=== PATIENT | male | born 1945 | race Caucasian/White ===

== ENCOUNTER 2022-09-02 14:55 | Oncology outpatient (recurring) (ONCR) | payer MEDICARE, SELFPAY ==
[2022-09-02 16:35] LABS: Basophils % 0.5 %; Eosinophils # 0.1 10^3/uL (0.0-0.8); Eosinophils % 2.1 %; Hematocrit 41.3 % (42.0-52.0); Lymphocytes # 1.5 10^3/uL (0.8-4.8); Mean Corpuscular HGB Conc 33.9 g/dL (30.0-36.0); Mean Corpuscular Hemoglobin 31.1 pg (28.0-34.0); Mean Corpuscular Volume 91.8 fl (80-94); Mean Platelet Volume 11.9 fL (7.4-10.4); Monocytes # 0.8 10^3/uL (0.2-0.9); Monocytes % 13.9 %; Neutrophils # 3.52 10^3/uL (1.8-7.7); Neutrophils % 58.2 %; Nucleated Red Blood Cells % 0 %; Platelet Count 36 10^3/cmm (130-400); Red Cell Distribution Width 12.3 % (12.1-15.1); White Blood Count 6.1 10^3/uL (4.0-10.0)
[2022-09-02 16:41] LABS: Erythrocyte Sedimentation Rate 7 mm/hr (0-10)
[2022-09-02 17:33] LABS: Alanine Aminotransferase 24 U/L (0-41); Albumin Level 4.3 g/dL (3.5-5.2); Alkaline Phosphatase 73 U/L (40-130); Anion Gap 17.3 (5-19); Aspartate Amino Transferase 21 U/L (0-40); Blood Urea Nitrogen 19 mg/dL (8-23); Calcium 9.4 mg/dL (8.5-10.5); Carbon Dioxide 24 mmol/L (22-29); Chloride 104 mmol/L (98-107); Globulin 3.1 g/dL (1.3-4.6); Glucose 110 mg/dL (65-115); Lactate Dehydrogenase 246 U/L (135-225); Osmolality Calculated 295 mOsm/kg (285-295); Potassium 4.3 mmol/L (3.5-5.1); Sodium 141 mmol/L (136-145); Thyroid Stimulating Hormone 2.92 uIU/mL (0.27-4.20); Total Bilirubin 0.4 mg/dL (0.15-1.2); Total Protein 7.4 g/dL (6.6-8.7); Vitamin B12 345 pg/mL (232-1245)
[2022-09-02 17:34] LABS: Folate Level 13.8 ng/mL (4.5-32.2)
[2022-09-02 18:36] LABS: LAB Peripheral Smear Sent for Review
[2022-09-03 15:48] LABS: Anti-Nuclear Antibody Screen NEGATIVE (NEGATIVE)
== END 2022-09-08 23:59 | disposition home or self-care (01) ==
PROVIDERS: PCP Family Medicine; Visit Provider Internal Medicine Medical Oncology
DX: D69.6 Thrombocytopenia, unspecified (principal); R53.83 Other fatigue; Z79.02 Long term (current) use of antithrombotics/antiplatelets; Z86.73 Personal history of transient ischemic attack (TIA), and cerebral infarction without residual deficits; Z87.891 Personal history of nicotine dependence
CPT/HCPCS: 80053; 82607; 82746; 83615; 84443; 85025; 85651; 86038; 86140; 99205

== ENCOUNTER 2022-09-29 10:11 | Day surgery (SDC) | payer MEDICARE, SELFPAY ==
[2022-09-25 10:48] VITALS: BMI 29.5
[2022-09-29 10:36] VITALS: BP 174/9; PULSE 63; RESP 18; TEMP 36.2; O2SAT 93
[2022-09-29] MEDS: sodium chloride 0.9% 1,000 ML 30 ML IV (10:43)
[2022-09-29 10:53] LABS: Glucose Point of Care 124 mg/dL (70-110)
[2022-09-29 10:59] LABS: Basophils % 0.4 %; Eosinophils # 0.1 10^3/uL (0.0-0.8); Eosinophils % 1.7 %; Hematocrit 43.7 % (42.0-52.0); Lymphocytes # 1.6 10^3/uL (0.8-4.8); Lymphocytes % 22.3 %; Mean Corpuscular HGB Conc 34.3 g/dL (30.0-36.0); Mean Corpuscular Hemoglobin 31.1 pg (28.0-34.0); Mean Corpuscular Volume 90.5 fl (80-94); Mean Platelet Volume 11.1 fL (7.4-10.4); Monocytes # 0.7 10^3/uL (0.2-0.9); Monocytes % 10.4 %; Neutrophils # 4.51 10^3/uL (1.8-7.7); Neutrophils % 65.1 %; Nucleated Red Blood Cells % 0 %; Platelet Count 50 10^3/cmm (130-400); Red Blood Count 4.83 10^6/uL (4.1-5.3); Red Cell Distribution Width 11.9 % (12.1-15.1); White Blood Count 6.9 10^3/uL (4.0-10.0)
--- NOTE | 2022-09-29 12:15 | W.PM.OPSUD ---
Surgery/Procedure H&P Update DATE OF PROCEDURE: September 29, 2022 DATE H&P PERFORMED: 09/02/22 CHANGES TO PREVIOUS DOCUMENTATION: Patient seen and examined, no obvious new changes or symptoms since his last visit in the clinic PRIMARY INDICATION FOR PROCEDURE: Thrombocytopenia PLANNED PROCEDURE: Operation Date: 09/29/22 12:00 Proposed Procedures p Bone Marrow Biospy With Aspiration(Not Applicable) - Tony Roy MD
--- NOTE | 2022-09-29 12:28 | ANES.PREANE2 ---
Pre-Anesthetic Assessment Height/Weight: Height 1.75 m Weight 90.718 kg Temp Pulse Resp BP Pulse Ox O2 Del Method 97.2 F L 63 18 174/9 93 09/29/22 10:36 09/29/22 10:36 09/29/22 10:36 09/29/22 10:36 09/29/22 10:36 09/29/22 10:36 Preop Diagnosis: Throbocytopenia Operation Date: 09/29/22 12:00 Proposed Procedures p Bone Marrow Biospy With Aspiration(Not Applicable) - Tony Roy MD Last intake: Intake Last Liquid Date 09/28/22 Last Liquid Time 23:00 Last Solid Date 09/28/22 Last Solid Time 23:00 Social No alcohol and No tobacco Exam alert, oriented x 3, clear to auscultation bilaterally and regular rate & rhythm Airway Submandibular: within normal limits Cervical ROM: within normal limits Mallampati: Class II Dentition: false History/ROS No significant history except as noted and No significant complaints Pulmonary None reported CV/HEM Peripheral Vascular Disease SP CEA None reported Hepatic None reported GI None reported Metabolic Diabetes Mellitus Musc/skel Weakness R sided weakness. Uses cane Neuropsych Cerebrovascular Accident and Neuropathy Anesthetic Plan ASA status: 4 Anesthesia: Anesthesia Evaluation and MAC Risk of > 500 ml blood loss (7ml/kg in children): No Medications/Allergies Home Medications Medication Instructions Recorded Confirmed Last Taken Type baclofen 10 mg tablet 10 mg PO DAILY PRN muscle spasms 09/05/22 09/29/22 09/25/22 History clopidogrel 75 mg tablet 75 mg PO DAILY 09/05/22 09/29/22 09/24/22 History finasteride 5 mg tablet 5 mg PO DAILY 09/05/22 09/29/22 09/25/22 History gabapentin 300 mg capsule 300 mg PO TID 09/05/22 09/29/22 09/25/22 History metformin 500 mg tablet 500 mg PO BID 09/05/22 09/29/22 09/25/22 History pravastatin 40 mg tablet 40 mg PO DAILY 09/05/22 09/29/22 09/25/22 History Allergies Allergy/AdvReac Type Severity Reaction Status Date / Time Penicillins Allergy ADR-Gastrointestinal Verified 09/29/22 10:35 Upset [facility] Anesthesia Medical History (Updated 09/02/22 @ 18:05 by Placido Moreno MD) Benign prostatic hyperplasia Chronic kidney disease History of carotid artery disease History of multiple strokes Hyperlipidemia Peripheral neuropathy Type 2 diabetes mellitus Surgical History (Updated 09/02/22 @ 18:30 by Placido Moreno MD) H/O bilateral cataract extraction H/O carotid endarterectomy History of appendectomy Family History (Updated 09/02/22 @ 15:22 by Mirela Ward LPN) Father Stroke Mother Stroke Brother Cancer Lungs Lung disease Other Diabetes Denies family history of CAD (coronary artery disease) Clotting disorder Dementia Hyperlipidemia Psychiatric illness Chronic kidney disease (CKD) Suicide Anesthesia complication Bleeding disorder Hypertension Social History (Updated 09/02/22 @ 15:16 by Mirela Ward LPN) Smoking and tobacco status: former smoker (smoked x 20 years) Alcohol intake: never Data Anesthesia 09/29/22 10:49 Short CBC 09/29/22 Range/Units 10:49 WBC 6.9 (4.0-10.0) 10^3/uL Hgb 15.0 (11.7-16.6) g/dL Hct 43.7 (42.0-52.0) % MCV 90.5 (80-94) fl Plt Count 50 L (130-400) 10^3/cmm Neut % (Auto) 65.1 % Neut # (Auto) 4.51 (1.8-7.7) 10^3/uL Cardiac Studies: No Data to Display
--- NOTE | 2022-09-29 12:55 | PM.BMB ---
Bone Marrow Biopsy Bone Marrow Biopsy: I was consulted by [] office regarding bone marrow biopsy on [Eric romano]. Briefly, the patient is a [77] year old [Male with [History of thrombocytopenia]. In the Outpatient Services Department, with nursing staff and laboratory technologists in attendance, the procedure was discussed with the patient. Appropriate consent form had been signed. Appropriate alternatives, benefits and risks of procedure were discussed with the patient and he was pre-operatively assessed with a history and physical by myself and cleared for the biopsy procedure. The patient did request IV sedation and that was provided by the Anesthesia Department. Under aseptic condition right posterior iliac area was cleaned and prepped, local anesthesia was given, about 15 cc of bone marrow aspirate and core biopsy was obtained, sample was sent for routine histopathology, cytogenetics, FISH for MDS. Postprocedure nursing instructions were given Thank you for allowing me to participate in this patient's care and diagnosis. Coding Level of Care Code Acute Tour Operator for Rubio Sims Medical Decision Making Straight Forward
[2022-09-29 12:59] VITALS: BP 148/76; PULSE 60; RESP 14; TEMP 36.4; O2SAT 98
[2022-09-29 13:11] VITALS: BP 179/91; PULSE 59; RESP 14; O2SAT 98
--- NOTE | 2022-09-29 15:40 | ANE.PACU2 ---
Inpatient post-anesthesia follow up: Airway intact: Yes Vital signs: Temperature 97.5 F Pulse Rate 59 Respiratory Rate 14 Blood Pressure 179/91 Pulse Oximetry 98 Oxygen Delivery Me thod Room Air Oxygen Flow Rate Fraction of Inspir ed Oxygen Hydration adequate: Yes Nausea and vomiting: No Pain level: 2 Mental status: Baseline
[2022-10-06 10:00] LABS: Leukemia Profile (BBPL) See Report; Lymphoma Profile (BBPL) See Report
[2022-10-13 09:43] LABS: Chromosome Analysis BBPL See Report; MDS Panel (BBPL) See Report
== END 2022-09-29 13:34 | disposition home or self-care (01) ==
PROVIDERS: PCP Family Medicine; Visit Provider Internal Medicine Hematology & Oncology
PROC: 07DT3ZX Extraction of Bone Marrow, Percutaneous Approach, Diagnostic (ICD-10-PCS; CPT 38222; principal; 2022-09-29 12:00)
DX: D69.6 Thrombocytopenia, unspecified (principal); Z86.73 Personal history of transient ischemic attack (TIA), and cerebral infarction without residual deficits; N40.0 Benign prostatic hyperplasia without lower urinary tract symptoms; E11.42 Type 2 diabetes mellitus with diabetic polyneuropathy; I25.10 Atherosclerotic heart disease of native coronary artery without angina pectoris; E78.5 Hyperlipidemia, unspecified; Z87.891 Personal history of nicotine dependence; E11.22 Type 2 diabetes mellitus with diabetic chronic kidney disease; N18.9 Chronic kidney disease, unspecified
CPT/HCPCS: 36415; 36416; 38222; 82962; 85025; 88184; 88185; 88237; 88264; 88291; 88305; 88311; 88367; 88374; J2704; J7030

== ENCOUNTER 2022-11-07 08:03 | Oncology outpatient (recurring) (ONCR) | payer MEDICARE, SELFPAY ==
[2022-11-07 08:21] LABS: Basophils % 0.4 %; Eosinophils # 0.2 10^3/uL (0.0-0.8); Hematocrit 43.6 % (42.0-52.0); Hemoglobin 14.6 g/dL (11.7-16.6); Lymphocytes % 24.7 %; Mean Corpuscular HGB Conc 33.5 g/dL (30.0-36.0); Mean Corpuscular Hemoglobin 30.5 pg (28.0-34.0); Mean Corpuscular Volume 91.2 fl (80-94); Monocytes # 0.9 10^3/uL (0.2-0.9); Monocytes % 10.5 %; Neutrophils # 5.05 10^3/uL (1.8-7.7); Neutrophils % 62.2 %; Nucleated Red Blood Cells % 0 %; Platelet Count 80 10^3/cmm (130-400); Red Blood Count 4.78 10^6/uL (4.1-5.3); Red Cell Distribution Width 11.9 % (12.1-15.1); White Blood Count 8.1 10^3/uL (4.0-10.0)
[2022-11-07 08:40] LABS: Alanine Aminotransferase 21 U/L (0-41); Albumin Level 4.5 g/dL (3.5-5.2); Alkaline Phosphatase 71 U/L (40-130); Anion Gap 13.5 (5-19); Aspartate Amino Transferase 20 U/L (0-40); Blood Urea Nitrogen 26 mg/dL (8-23); Calcium 9.1 mg/dL (8.5-10.5); Carbon Dioxide 27 mmol/L (22-29); Chloride 103 mmol/L (98-107); Globulin 2.8 g/dL (1.3-4.6); Glucose 129 mg/dL (65-115); Lactate Dehydrogenase 219 U/L (135-225); Osmolality Calculated 294 mOsm/kg (285-295); Potassium 4.5 mmol/L (3.5-5.1); Sodium 139 mmol/L (136-145); Total Bilirubin 0.4 mg/dL (0.15-1.2); Total Protein 7.3 g/dL (6.6-8.7)
[2022-11-07 08:41] LABS: Erythrocyte Sedimentation Rate 12 mm/hr (0-10)
[2022-11-07 12:00] LABS: Vitamin B12 292 pg/mL (232-1245)
== END 2022-11-08 23:59 | disposition home or self-care (01) ==
PROVIDERS: PCP Family Medicine; Visit Provider Internal Medicine Medical Oncology
DX: D69.6 Thrombocytopenia, unspecified (principal); M54.50 Low back pain, unspecified; R51.9 Headache, unspecified; R41.3 Other amnesia; R53.83 Other fatigue; Z79.02 Long term (current) use of antithrombotics/antiplatelets; Z86.73 Personal history of transient ischemic attack (TIA), and cerebral infarction without residual deficits; Z87.891 Personal history of nicotine dependence
CPT/HCPCS: 36415; 80053; 82607; 83615; 85025; 85651; 99214

== ENCOUNTER → 2023-02-03 09:08 | Outpatient (BNVA) | payer OTHER, SELFPAY | PROVIDERS: PCP Family Medicine; Referring Provider Family Medicine; Visit Provider Orthopaedic Surgery | DX: M48.062 Spinal stenosis, lumbar region with neurogenic claudication (principal); M51.36 Other intervertebral disc degeneration, lumbar region | CPT/HCPCS: 72110 ==

== ENCOUNTER 2023-07-06 06:15 | Outpatient (CLI) | payer OTHER, SELFPAY ==
[2023-07-06] MEDS: gadobenate dimeglumine 20 mL vial IV (07:27)
--- NOTE | 2023-07-06 08:00 | MR_ITS ---
WS: [id number] MRI LUMBAR SPINE WITHOUT AND WITH CONTRAST TECHNIQUE: Sagittal T1, T2 and STIR imaging. Axial T1 and T2 imaging. Post gadolinium imaging was obt ained. CLINICAL INFORMATION: M48.062 - Spinal stenosis, lumbar region with neurogenic ... COMPARISON: MRI 01/08/2023 FINDINGS: Mild lumbar curve. No acute compression. Disc bulging worse at L2-L3 and L3-L4. L5 is partially sacra lized. No abnormal gadolinium enhancement. L1-L2: Mild disc bulging with narrowing of the subarticular recess bilaterally. Tiny LEFT paracentral protrusion. Mild facet arthropathy. Mild RIGHT foraminal narrowing. L2-L3: RIGHT paracentral protrusion with slight inferior migration of disc material unchanged from pr evious. Impingement traversing RIGHT L3 nerve root. Narrowing of the RIGHT subarticular recess. Mild facet arthropathy. L3-L4: Mild annular bulging. Impingement subarticular recess bilaterally. Moderate central canal sten osis. RIGHT foraminal protrusion impinges the exiting L3 nerve root. RIGHT eccentric annular tear. Co rrelation RIGHT L3 nerve root symptoms. LEFT foramen is patent. Mild facet arthropathy. L4-L5: Mild disc bulging with narrowing of the subarticular recess bilaterally. Mild central canal st enosis. Moderate facet arthropathy. Mild RIGHT foraminal narrowing. LEFT foramen is patent. L5-S1: L5 is partially sacralized. Mild facet arthropathy. Spinal canal and foramen are patent. Visualized pelvic bony structures: Normal. Paravertebral soft tissues: Normal. LEFT extrarenal pelvis. IMPRESSION: 1. Mild lumbar curve. L5 is partially sacralized. Counting performed from the craniocervical junctio n. 2. RIGHT subarticular protrusion L2-3 with slight inferior herniation of disc material. This is unch anged from previous. Impingement traversing RIGHT L3 nerve root with mild central canal stenosis. 3. Moderate narrowing of the thecal sac L3-4 due to disc bulging combination with facet arthropathy and prominent epidural fat. Impingement traversing L4 nerve roots bilaterally. This appears slightly progressed compared to previous. 4. RIGHT foraminal protrusion L3-4 with a small annular tear. Impingement exiting RIGHT L3 nerve gaston t laterally with moderate RIGHT foraminal narrowing. Recommend correlation RIGHT L3 nerve root sympto ms. This appears slightly progressed compared to previous. 5. Mild central canal stenosis L4-5 with impingement traversing L5 nerve roots bilaterally. Mild to moderate RIGHT foraminal narrowing contacts the exiting RIGHT L4 nerve root laterally. 6. Tiny central protrusion at L1-2 with mild central canal stenosis and narrowing of the subarticula r recess bilaterally.
== END 2023-07-06 06:16 | disposition home or self-care (01) ==
LOC: RAD 06:16
PROVIDERS: PCP Family Medicine Adult Medicine; Visit Provider Anesthesiology Pain Medicine
DX: M48.062 Spinal stenosis, lumbar region with neurogenic claudication (principal); M51.26 Other intervertebral disc displacement, lumbar region; M47.816 Spondylosis without myelopathy or radiculopathy, lumbar region
CPT/HCPCS: 72158; A9577

== ENCOUNTER 2023-07-28 15:50 | Emergency (ER) | payer OTHER, SELFPAY ==
[2023-07-28 15:53] VITALS: BP 167/46; PULSE 90; RESP 18; TEMP 37.8; O2SAT 95
--- NOTE | 2023-07-28 15:55 | XRR_ITS ---
PROCEDURE INFORMATION: Exam: XR Chest Exam date and time: 07/28/2023 4:05 PM Age: 78 years old Clinical indication: Cough and dyspnea and shortness of breath; Additional info: Weakness; Chest pressure/congestion; SOB TECHNIQUE: Imaging protocol: Radiologic exam of the chest. Views: 1 view. COMPARISON: No relevant prior studies available. FINDINGS: Tubes, catheters and devices: Lower neck surgical clips. Lungs: Left lung base platelike atelectasis versus scarring. No consolidation. Pleural spaces: Unremarkable. No pleural effusion. No pneumothorax. Heart/Mediastinum: Unremarkable. No cardiomegaly. Vasculature: Aortic arch atherosclerotic calcification. Bones/joints: Mild degenerative changes along the spine and acromioclavicular joints. Partially visualized left humeral head suture anchor. XR/XR chest 1V portable [id number] IMPRESSION: No acute findings.
--- NOTE | 2023-07-28 15:56 | ECG_ITS ---
[facility] Test Date: 2023-07-28 Pat Name: Eric Gustafson Department: Room: Gender: Male Assessment Rn: : 1945 Requested By: Kaleigh Borja Order Number: [id number] [address] MD: Price Ochoa M.D. Measurements Intervals [place] Rate: 88 P: 58 IN: 182 QRS: 23 QRSD: 97 T: 62 QT: 339 QTc: 412 Interpretive Statements SINUS RHYTHM WITH FREQUENT VENTRICULAR PREMATURE COMPLEXES INCOMPLETE RIGHT BUNDLE BRANCH BLOCK [90+ ms QRS DURATION, TERMINAL R IN V1/V2, 40+ ms S IN I/aVL/V4/V5/V6] MINIMAL ST DEPRESSION [0.025+ mV ST DEPRESSION] ABNORMAL RHYTHM ECG No previous ECG available for comparison Electronically Signed On 07-28-2023 16:34:49 CDT by Price Ochoa M.D. [email or web address] ([email or web address]) mont[facility] va medical centerTVTYknox community hospital.GripeO/store/OM/[id number]
--- NOTE | 2023-07-28 15:59 | ED_ITS ---
HPI - General Adult General: Chief complaint: COVID symptoms Stated complaint: Weakness Time Seen by Provider: 07/28/23 15:51 Source: patient and EMS Mode of arrival: EMS Limitations: no limitations History of Present Illness: 78-year-old male states that over the last 2 days he has been having cough along with body aches low-grade fevers along with fatigue. States he has been exposed to flu and COVID. Had some mild dyspnea Associated symptoms: Reports headache(s); Deny chest pain, dyspnea, nausea, rash or vomiting Review of Systems Const: Reports: fever(s), chills, body aches and fatigue; Denies: change in appetite ENMT: Denies: throat pain or dental pain Card: Denies: chest pain Resp: Reports: non-productive cough; Denies: dyspnea GI: Denies: abdominal pain, nausea, vomiting or diarrhea : Denies: dysuria Musc: Denies: neck pain or back pain Skin/Breast: Denies: rash Neuro: Reports: headache(s) PFSH ED PFSH: Medical History Benign prostatic hyperplasia Chronic kidney disease History of carotid artery disease History of multiple strokes Hyperlipidemia Peripheral neuropathy Type 2 diabetes mellitus Surgical History H/O bilateral cataract extraction H/O carotid endarterectomy History of appendectomy Family History Father Stroke Mother Stroke Brother Cancer Lungs Lung disease Other Diabetes Denies family history of CAD (coronary artery disease) Clotting disorder Dementia Hyperlipidemia Psychiatric illness Chronic kidney disease (CKD) Suicide Anesthesia complication Bleeding disorder Hypertension Social History Smoking and tobacco status: former smoker (smoked x 20 years) Alcohol intake: never Course Vital Signs: Vital signs: Vital Signs Temperature 100.1 F H 07/28/23 15:53 Pulse Rate 90 07/28/23 15:53 Respiratory Rate 18 07/28/23 15:53 Blood Pressure 167/46 07/28/23 15:53 Pulse Oximetry 96 07/28/23 16:28 Oxygen Delivery Me thod Room Air 07/28/23 16:28 MDM - General Adult Medical Decision Making Patient presents here with viral-like symptoms he is COVID-positive x-ray shows no pneumonia he feels improved here his oxygen levels been normal he is stable for discharge we will place him on Paxil but he is to follow-up with PCP and return if worsening. Medical Records I reviewed the patient's medical records. Lab Data I reviewed the patient's lab results. 07/28/23 16:07 07/28/23 16:07 Radiology Impressions Chest X-Ray 07/28/23 15:55 IMPRESSION: No acute findings. Laboratory Results WBC 7.28 10^3/uL (3.29-11.43) 07/28/23 16:07 RBC 4.38 10^6/uL (3.85-5.65) 07/28/23 16:07 Hgb 13.70 g/dL (11.27-16.99) 07/28/23 16:07 Hct 41.3 % (37-53) 07/28/23 16:07 MCV 94.3 fl (82-101) 07/28/23 16:07 MCH 31.3 pg (27-33) 07/28/23 16:07 MCHC 33.2 g/dL (30-55) 07/28/23 16:07 RDW 12.1 % (12.1-15.1) 07/28/23 16:07 Plt Count 142 10^3/cmm (157-399) L 07/28/23 16:07 MPV 9.5 fL (7.4-10.4) 07/28/23 16:07 Neut % (Auto) 69.0 % 07/28/23 16:07 Lymph % (Auto) 13.6 % 07/28/23 16:07 [place] % (Auto) 16.6 % 07/28/23 16:07 Eos % (Auto) 0.1 % 07/28/23 16:07 Baso % (Auto) 0.4 % 07/28/23 16:07 Neut # (Auto) 5.02 10^3/uL (1.8-7.7) 07/28/23 16:07 Lymph # (Auto) 1.0 10^3/uL (0.8-4.8) 07/28/23 16:07 [place] # (Auto) 1.2 10^3/uL (0.2-0.9) H 07/28/23 16:07 Eos # (Auto) 0.0 10^3/uL (0.0-0.8) 07/28/23 16:07 Baso # (Auto) 0.0 10^3/uL (0.0-0.1) 07/28/23 16:07 Nucleated RBC % (auto) 0 % 07/28/23 16:07 Nucleated RBCs # 0.0 /100WBC 07/28/23 16:07 Sodium 135 mmol/L (136-145) L 07/28/23 16:07 Potassium 3.9 mmol/L (3.5-5.1) 07/28/23 16:07 Chloride 100 mmol/L (98-107) 07/28/23 16:07 Carbon Dioxide 24 mmol/L (22-29) 07/28/23 16:07 Anion Gap 14.9 (5-19) 07/28/23 16:07 BUN 20 mg/dL (8-23) 07/28/23 16:07 Creatinine 1.3 mg/dL (0.7-1.2) H 07/28/23 16:07 GFR Calculation Not Reportable 07/28/23 16:07 Glucose 141 mg/dL (65-115) H 07/28/23 16:07 Calculated Osmolality 285 mOsm/kg (285-295) 07/28/23 16:07 Calcium 8.6 mg/dL (8.5-10.5) 07/28/23 16:07 Total Bilirubin 0.4 mg/dL (0.15-1.2) 07/28/23 16:07 AST 31 U/L (0-40) 07/28/23 16:07 ALT 35 U/L (0-41) 07/28/23 16:07 Alkaline Phosphatase 61 U/L (40-130) 07/28/23 16:07 Total Protein 6.7 g/dL (6.6-8.7) 07/28/23 16:07 Albumin 4.2 g/dL (3.5-5.2) 07/28/23 16:07 Globulin 2.5 g/dL (1.3-4.6) 07/28/23 16:07 Urine Color Yellow (Yellow) 07/28/23 17:20 Urine Appearance Clear (CLEAR) 07/28/23 17:20 Urine pH 5 (5-7) 07/28/23 17:20 Ur Specific [place] 1.020 (1.005-1.030) 07/28/23 17:20 Urine Protein Neg (Negative) 07/28/23 17:20 Urine Glucose (UA) Norm (Normal) 07/28/23 17:20 Urine Ketones Negative (Negative) 07/28/23 17:20 Urine Blood Neg (Negative) 07/28/23 17:20 Urine Nitrate Negative (Negative) 07/28/23 17:20 Urine Bilirubin Neg (Negative) 07/28/23 17:20 Urine Urobilinogen Norm mg/dL (Negative) 07/28/23 17:20 Ur Leukocyte Esterase Negative (Negative) 07/28/23 17:20 Influenza Type A Ag negative (Negative) 07/28/23 16:27 Influenza Type B Ag negative (Negative) 07/28/23 16:27 SARS-CoV-2 Ag (Rapid) positive (Negative) H 07/28/23 16:27 All radiology interpretation(s) finalized by discharge Discharge Plan Discharge Patient Disposition: Home Clinical Impression: COVID-19 Condition: Stable Prescriptions: New Paxlovid 300 mg (150 mg x 2)-100 mg tablets,dose pack See Rx Instructions .ROUTE .COMPLEX Qty: 30 0RF Rx Instructions: take TWO 150 mg tablets of nirmatrelvir with ONE 100 mg tablet of ritonavir twice daily for 5 days No Action prednisone 20 mg tablet 20 mg PO DAILY Qty: 15 0RF Rx Instructions: 60mg X3 days 40mg X2 days 20mg X 2days tizanidine 4 mg tablet 4 mg PO BID PRN (Reason: muscle spasticity) Qty: 60 0RF Rx Instructions: not to be taken with baclofen tramadol 50 mg tablet 50 mg PO BID PRN (Reason: pain) Qty: 45 0RF gabapentin 300 mg capsule 300 mg PO TID baclofen 10 mg tablet 10 mg PO DAILY PRN (Reason: muscle spasms) finasteride 5 mg tablet 5 mg PO DAILY metformin 500 mg tablet 500 mg PO BID clopidogrel 75 mg tablet 75 mg PO DAILY pravastatin 40 mg tablet 40 mg PO DAILY Discharge Orders: Discharge ED (Routine); Ordered 07/28/23 Ordered By: Kaleigh Borja Referrals: Bill Echavarria MD [Primary Care Provider] - 1-3 days Discharge Diet: Advance as tolerated Discharge Activity: Resume usual activity Patient Instructions: COVID-19 (Coronavirus Disease 2019) (ED) Coding Level of Care Code ED On Air Talent for Rubio Sims
[2023-07-28 16:15] LABS: Basophils % 0.4 %; Eosinophils % 0.1 %; Hematocrit 41.3 % (37-53); Lymphocytes % 13.6 %; Mean Corpuscular HGB Conc 33.2 g/dL (30-55); Mean Corpuscular Hemoglobin 31.3 pg (27-33); Mean Corpuscular Volume 94.3 fl (82-101); Mean Platelet Volume 9.5 fL (7.4-10.4); Monocytes # 1.2 10^3/uL (0.2-0.9); Monocytes % 16.6 %; Neutrophils # 5.02 10^3/uL (1.8-7.7); Nucleated Red Blood Cells % 0 %; Platelet Count 142 10^3/cmm (157-399); Red Blood Count 4.38 10^6/uL (3.85-5.65); Red Cell Distribution Width 12.1 % (12.1-15.1); White Blood Count 7.28 10^3/uL (3.29-11.43)
[2023-07-28] MEDS: sodium chloride 0.9% 1,000 ML 999 ML IV (16:21)
[2023-07-28] MEDS: acetaminophen 325 mg Tablet 650 MG PO (16:24)
[2023-07-28 16:28] VITALS: O2SAT 96
[2023-07-28 16:32] LABS: Alanine Aminotransferase 35 U/L (0-41); Albumin Level 4.2 g/dL (3.5-5.2); Alkaline Phosphatase 61 U/L (40-130); Anion Gap 14.9 (5-19); Aspartate Amino Transferase 31 U/L (0-40); Blood Urea Nitrogen 20 mg/dL (8-23); Calcium 8.6 mg/dL (8.5-10.5); Carbon Dioxide 24 mmol/L (22-29); Chloride 100 mmol/L (98-107); Globulin 2.5 g/dL (1.3-4.6); Glucose 141 mg/dL (65-115); Osmolality Calculated 285 mOsm/kg (285-295); Potassium 3.9 mmol/L (3.5-5.1); Sodium 135 mmol/L (136-145); Total Bilirubin 0.4 mg/dL (0.15-1.2); Total Protein 6.7 g/dL (6.6-8.7)
[2023-07-28 17:24] LABS: Influenza A by IFA negative (Negative); Influenza B by IFA negative (Negative)
[2023-07-28 17:25] LABS: Add Urine Microscopic? NO; Charge for UA Resulting for Rev
[2023-07-28 17:25] LABS: SARS Covid-2 Antigen positive (Negative)
[2023-07-28 17:28] LABS: Bilirubin Urine Neg (Negative); Blood Urine Neg (Negative); Glucose Urine UA Norm (Normal); Ketones Urine Negative (Negative); Leukocyte Esterase Urine Negative (Negative); Nitrate Urine Negative (Negative); Protein Urine Neg (Negative); Urine Appearance Clear (CLEAR); Urine Color Yellow (Yellow); Urobilinogen Urine Norm (Negative); pH Urine 5 (5-7)
[2023-07-28 17:59] VITALS: BP 157/69; PULSE 80; RESP 17; O2SAT 97
== END 2023-07-28 18:01 | disposition home or self-care (01) ==
PROVIDERS: Emergency Provider Emergency Medicine; PCP Family Medicine Adult Medicine
DX: U07.1 COVID-19 (principal); Z79.02 Long term (current) use of antithrombotics/antiplatelets; Z79.84 Long term (current) use of oral hypoglycemic drugs; Z87.891 Personal history of nicotine dependence; E11.22 Type 2 diabetes mellitus with diabetic chronic kidney disease; N18.9 Chronic kidney disease, unspecified; Z86.73 Personal history of transient ischemic attack (TIA), and cerebral infarction without residual deficits
CPT/HCPCS: 36415; 71045; 80053; 81003; 85025; 87426; 87804; 93005; 96360; 96361; 99285; J7030

== ENCOUNTER → 2023-09-03 10:08 | Outpatient (BNVA) | payer MEDICARE, SELFPAY | PROVIDERS: PCP Family Medicine Adult Medicine; Visit Provider Orthopaedic Surgery | DX: M48.062 Spinal stenosis, lumbar region with neurogenic claudication (principal); D69.6 Thrombocytopenia, unspecified | CPT/HCPCS: 36415; 72100; 80053; 81003; 85025; 99214 ==

== ENCOUNTER 2023-10-05 12:20 | Inpatient (IN) | payer MEDICARE, SELFPAY ==
[2023-10-05] VITALS (24 sets, daily range): BP systolic 98–214; BP diastolic 51–95; PULSE 64–97; RESP 6–18; TEMP 36.6–36.9; O2SAT 90–99; BMI 29.5
--- NOTE | 2023-10-05 | XR_ITS ---
WS: [id number] C-ARM RADIOGRAPHS LUMBOSACRAL SPINE; 6 IMAGES HISTORY: OR PIC, fusion from l2 to pelvis COMPARISON: None available. Intraoperative imaging during fusion involving the lumbar and sacrum. Laminectomy defects are noted a t several levels in the lumbar spine. IMPRESSION: Intraoperative imaging during lumbosacral fusion.
[2023-10-05] MEDS: sodium chloride 0.9% 1,000 ML 30 ML IV (06:25)
--- NOTE | 2023-10-05 06:43 | ECG_ITS ---
[facility] Test Date: 2023-10-05 Pat Name: Eric Gustafson Department: Room: Gender: Male Html Web Developer: : 1945 Requested By: Rose Conway Order Number: [id number] Jad MD: Aubrey Jolly M.D. Measurements Intervals [place] Rate: 65 P: -28 MD: 192 QRS: 15 QRSD: 93 T: 48 QT: 394 QTc: 413 Interpretive Statements SINUS RHYTHM Nonspecific ST changes Compared to ECG 07/28/2023 16:17:36 Ventricular premature complex(es) no longer present Electronically Signed On 10-05-2023 9:18:18 GAME DESIGNER/CREATIVE DIRECTOR by Aubrey Jolly M.D. [email or web address] community hospitalAccelerize New Mediacommunity regional medical centerServiceGems/store/OM/[id number]
--- NOTE | 2023-10-05 06:45 | W.PM.OPSUD ---
Surgery/Procedure H&P Update DATE OF PROCEDURE: October 05, 2023 DATE H&P PERFORMED: 09/11/23 H&P UPDATE INFORMATION: I have reviewed H&P completed within last 30 days, I have examined patient prior to procedure and No changes to prior documentation PREOP DIAGNOSIS: Lumbar stenosis with neurogenic claudication,DDD Lumbar spine PLANNED PROCEDURE: Operation Date: 10/05/23 07:00 Proposed Procedures p Lumbar Fusion(Not Applicable) - DO claudine Key Lumbar Spine Decompression Lumbar Decompression(Not Applicable) - DO claudine Key Sacroiliac Joint Fusion SI Joint Fusion(Not Applicable) - Gomez Britt DO
--- NOTE | 2023-10-05 06:58 | ANES.PREANE2 ---
Pre-Anesthetic Assessment Height/Weight: Height 1.75 m Weight 90.718 kg O2 Del Method Room Air 10/05/23 06:09 Preop Diagnosis: Lumbar stenosis with neurogenic claudication,DDD Lumbar spine Operation Date: 10/05/23 07:00 Proposed Procedures p Lumbar Fusion(Not Applicable) - Gomez Britt DO s Lumbar Spine Decompression Lumbar Decompression(Not Applicable) - Gomez Britt DO s Sacroiliac Joint Fusion SI Joint Fusion(Not Applicable) - Gomez Britt DO Familial anesthetic complications: None Was Beta Ace taken within 24 hours: N/A Was Clonidine taken within 24 hours: N/A Last intake: Intake Last Liquid Date 10/04/23 Last Liquid Time 19:00 Last Solid Date 10/04/23 Last Solid Time 19:00 Social No alcohol and No tobacco Exam alert, oriented x 3, clear to auscultation bilaterally and regular rate & rhythm Airway Mallampati: Class I Dentition: full CV/HEM hx thombocytopenia, negative bone marrow biopsy Metabolic Diabetes Mellitus and Hyperlipidemia Neuropsych Bipolar Anesthetic Plan ASA status: 3 Anesthesia: General Risk of > 500 ml blood loss (7ml/kg in children): No Medications/Allergies Home Medications Medication Instructions Recorded Confirmed Last Taken Type clopidogrel 75 mg tablet 75 mg PO DAILY 09/05/22 09/22/23 09/15/23 History finasteride 5 mg tablet 5 mg PO DAILY 09/05/22 09/22/23 09/15/23 History metformin 500 mg tablet 500 mg PO BID 09/05/22 09/22/23 09/28/23 History pravastatin 40 mg tablet 40 mg PO DAILY 09/05/22 09/22/23 10/05/23 History gabapentin 300 mg capsule 400 mg PO TID 09/11/23 09/22/23 10/05/23 History Allergies Allergy/AdvReac Type Severity Reaction Status Date / Time Penicillins Allergy ADR-Gastrointestinal Verified 09/22/23 10:43 Upset tramadol Allergy itching Verified 09/22/23 10:43 [facility] Anesthesia Medical History Benign prostatic hyperplasia Chronic kidney disease History of carotid artery disease History of multiple strokes Hyperlipidemia Peripheral neuropathy Type 2 diabetes mellitus Surgical History H/O bilateral cataract extraction H/O carotid endarterectomy History of appendectomy Family History Father Stroke Mother Stroke Brother Cancer Lungs Lung disease Other Diabetes Denies family history of CAD (coronary artery disease) Clotting disorder Dementia Hyperlipidemia Psychiatric illness Chronic kidney disease (CKD) Suicide Anesthesia complication Bleeding disorder Hypertension Social History Smoking and tobacco/nicotine status: former use of tobacco/nicotine (smoked x 20 years) Alcohol intake: never Data Anesthesia Cardiac Studies: No Data to Display
[2023-10-05] MEDS: hyDRALAzine 20 mg/mL INJ 1 mL 5 MG IVP (07:03)
[2023-10-05] MEDS: vancomycin 1,000 MG in sodium chloride 0.9% 250 ML 250 MG IV ×2 (07:32→18:01)
[2023-10-05 08:12] LABS: Glucose Point of Care 127 mg/dL (70-110)
[2023-10-05] MEDS: thrombin 5,000 unit SDV 5000 UNIT XX (08:18)
[2023-10-05] MEDS: heparin, porcine 1,000 unit/mL INJ 10 mL 10000 UNIT IRRIGATION (08:18)
[2023-10-05] MEDS: lidocaine-epi 1% 20 mL INJ INJECTION (08:19)
[2023-10-05] MEDS: vancomycin 1,000 MG SDV 1000 MG XX (09:24)
--- NOTE | 2023-10-05 11:49 | PM.OP ---
Operative Report Date of procedure: October 05, 2023 Pre-op diagnosis: Lumbar stenosis with neurogenic claudication Post-op diagnosis: same Procedure done: 1.? Posterior fusion L2-pelvis 3.? Instrumentation L2-S1 4.? Lumbopelvic instrumentation 5. open right Sacral iliac fusion 6. open left sacral iliac fusion 7. L2/3 laminectomy with partial facetectomies and diskectomy 8. L3/4 laminectomy with partial facetectomies 9. L4/5 laminectomy with facetectomies 10. use of computer navigation / stereotactic spine 11. use of autograft from same incision 12. allograft 13. Bone marrow aspirate from right iliac crest Surgeon: Gomez Britt DO Process Control Programmer: Jj Newman Process Control Programmer: The surgical scrub technologist, Jj Newman, KIKO was needed for his expertise under the microscope. He was important and necessary throughout the procedure to complete in a safe and timely manner. He assisted with patient positioning prepping and draping tissue retraction suctioning of the operative field protection of the dural sac and tissue closure Estimated blood loss (mL): 600 Procedure: 1.? Posterior fusion L2-pelvis 3.? Instrumentation L2-S1 4.? Lumbopelvic instrumentation 5. open right Sacral iliac fusion 6. open left sacral iliac fusion 7. L2/3 laminectomy with partial facetectomies and diskectomy 8. L3/4 laminectomy with partial facetectomies 9. L4/5 laminectomy with facetectomies 10. use of computer navigation / stereotactic spine 11. use of autograft from same incision 12. allograft 13. Bone marrow aspirate from right iliac crest Patient is brought to the operative suite.? After undergoing anesthesia, the patient had neuro monitoring attached.? Patient was then placed in the prone position on the Bean table.? All areas of impingement were well-padded.? Patient was then prepped and draped in the normal sterile fashion.? Skin incision was then made over the L2 to the sacrum.? Subperiosteal dissection was made out to the transverse processes ofL2 bilaterally? L3 bilaterally L4 bilaterally L5 bilaterally and sacral ala bilaterally.? The [employer] bone marrow aspirate kit was used to aspirate bone marrow aspirate.? This was done by using the sharp probe to open up the bone.? Aspiration was performed and then the blunt probe was then used to dissect down to through the bone tunnel.? An aspirating well drawn back a millimeter approximately 10 cc of bone marrow aspirate was used.? Admixed with the allograft and autograft bone that will be used. Next tension was brought to placing the fiducial for the computer navigation.? 2 pins were placed into the right iliac crest.? The fiducial was attached.? The C-arm was brought in and information from the C arm was then linked to the computer used for placing the screws.? Next attention was brought to placing the pedicle screws.? This was done by using the gearshift probe.? The probe was used to identify the pedicle.? Then the pedicle feeler was used followed by placement of screw.? This was done atL2 bilaterally L3 bilaterally L4 bilaterally, L5 bilaterally and S1 bilaterally. Next attension was brought to placing the iliac screws.? This was done using the sacral ala iliac technique.? The gearshift probe linked to computer navigation was then placed through the sacral ala into the sacroiliac joint into the iliac crest.? Next the pedicle feeler was used followed by the computer navigated tap.? And then the screw was passed a 90 mm screw was placed on the right side and a 60 mm screw was placed on the left side.? Both the screws were 9.5 mm in diameter. Next attension was brought to performing the open and sacral iliac fusion.? This was done by again using the gearshift probe linked to computer navigation.? Followed by pedicle feeler followed by placing a wire and then the drill drilled over the wire and then bone graft was packed into the sacroiliac joint and into the drill hole.? And the sacroiliac screw was then placed.? This technique was done on both the right and left side. Next attention was brought to performing the laminectomy of L2.? This was done using the high-speed bur Kerrisons and curettes.? Once the lamina was removed and then attention was brought to performing a partial facetectomy on the contralateral side.? This was done again using the high-speed bur curettes and Kerrisons.? The ligamentum flavum was taken down bilaterally from L2 to L3.? Attention was then brought to the facet on the ipsilateral side.? The facet was taken down.? The L3 nerve was decompressed as it passed around the L3 pedicle.? The laminectomy was done for purposes of decompressing the nerve.? The L2 nerve was identified as it traversed through the L2/3 foramen.? The L3 nerve was traced around the L3 pedicles bilateral.? The scar tissue was pulled off the dura.? There was found to be in good repair. Next attention was brought to performing the laminectomy of L4.? This was done using the high-speed bur Kerrisons and curettes.? Once the lamina was removed and then attention was brought to performing a partial facetectomy on the contralateral side.? This was done again using the high-speed bur curettes and Kerrisons.? The ligamentum flavum was taken down bilaterally from L4 to L5.? Attention was then brought to the facet on the ipsilateral side.? The facet was taken down.? The L5 nerve was decompressed as it passed around the L5 pedicle.? The laminectomy was done for purposes of decompressing the nerve.? The L4 nerve was identified as it traversed through the L4/5 foramen.? The L5 nerve was traced around the L5 pedicles bilateral.? The scar tissue was pulled off the dura.? There was found to be in good repair. Next attention was brought to performing the laminectomy of L5.? This was done using the high-speed bur Kerrisons and curettes.? Once the lamina was removed and then attention was brought to performing a partial facetectomy on the contralateral side.? This was done again using the high-speed bur curettes and Kerrisons.? The ligamentum flavum was taken down bilaterally from L5 to S1.? Attention was then brought to the facet on the ipsilateral side.? The facet was taken down.? The S1 nerve was decompressed as it passed around the S1 pedicle.? The laminectomy was done for purposes of decompressing the nerve.? The L5 nerve was identified as it traversed through the L5/S1 foramen.? The S1 nerve was traced around the S1 pedicles bilateral.? The scar tissue was pulled off the dura.? There was found to be in good repair. Attention was then brought to attaching the rods to the screws placed in theL 2 bilaterally?L3 bilaterally L4 bilaterally L5 bilaterally and S1 bilaterally.? This was then attached to the sacroiliac screw providing the lumbopelvic fixation.? Caps were torqued into position. Locking the construct in place. Wound was copiously irrigated and then attention was brought to decorticating the facets and transverse processes laterally.? Bone that was taken down from the lamina was used along with osteoamp fibers and sponges were packed into the lateral gutters along the facet joints.? This was done bilaterally. Wound was then closed in a layered fashion starting with the thoracolumbar fascia.? 0-vicryl was used the sub cutaneous tissue was closed with 2-0 vicryl and skin with 4-0 monocryl.? Glue was then used to seal the skin and a steril dressing was applied.? Patient was then placed in the supine position. The endotracheal tube was removed and patient was transferred to the PACU in stable condition.
[2023-10-05] MEDS: HYDROmorphone 1 mg/mL INJ 1 mL (12:32)
--- NOTE | 2023-10-05 12:45 | ANE.PACU2 ---
Inpatient post-anesthesia follow up: Airway intact: Yes Vital signs: Temperature 97.8 F Pulse Rate 79 Respiratory Rate 14 Blood Pressure 125/66 Pulse Oximetry 93 Oxygen Delivery Me thod Nasal Cannula Oxygen Flow Rate 6 Fraction of Inspir ed Oxygen Hydration adequate: Yes Nausea and vomiting: No Pain level: 1 Mental status: Baseline
[2023-10-05] MEDS: metformin 500 mg Tablet PO (17:51)
[2023-10-05] MEDS: lactated ringers 1,000 ML 90 ML IV (17:51)
[2023-10-05] MEDS: docusate sodium 100 mg Capsule PO (17:51)
[2023-10-05] MEDS: HYDROcodone-acetaminophen 5-325 mg Tablet PO ×2 (17:56→22:02)
[2023-10-05] MEDS: gabapentin 400 mg Capsule PO (20:06)
[2023-10-05] MEDS: ketorolac 30 mg/mL INJ IVP (20:06)
[2023-10-05] MEDS: sodium chloride 0.9% 1,000 ML 100 ML IV (20:07)
[2023-10-06] VITALS (7 sets, daily range): BP systolic 117–130; BP diastolic 58–66; PULSE 85–110; RESP 16–18; TEMP 36.4–37.1; O2SAT 93–97
[2023-10-06] MEDS: vancomycin 1,000 MG in sodium chloride 0.9% 250 ML 250 MG IV (06:10)
--- NOTE | 2023-10-06 08:39 | PM.PN ---
Subjective Subjective: POD 1 Resting comfortably. Reports increased back pain increased leg pain. Denies chest pain, shortness of breath, headaches Vitals/I&O/Wt Last Vital Signs Temp 97.6 F 10/06/23 00:36 Pulse 90 10/06/23 00:36 Resp 17 10/06/23 00:36 BP 117/66 10/06/23 00:36 Pulse Ox 93 10/06/23 00:36 O2 Del Method Room Air 10/05/23 18:00 O2 Flow Rate 6 10/05/23 11:39 10/05/23 10/06/23 10/06/23 22:59 06:59 14:59 Intake Total 490 / 2140 480 / 480 Output Total 750 / 1850 Balance -260 / 290 480 / 480 Weight last 48 hrs Weight 208 lb Weight 200 lb Physical Exam Narrative: Patient presents alert and oriented x3 with a good general appearance normal mood and affect. Normal coordination normal stability. Mild tenderness around the incisional site with the incision appear to be clean and dry with Hemovac intact. No signs of erythema or drainage. No signs of infection. Patient denies any fevers or chills. 4/5 motor strength both lower extremities with negative straight leg raise bilaterally. Calves are supple no medial thigh tenderness. Pulses are 2+ at the dorsalis pedis and posterior tibial region. Good capillary refill throughout normal sensation light touch both lower extremities. Urinary Catheter Management: Demarco: Cath Placed During This Visit: yes Reason for Continuing Indwelling Catheter: Perioperative Use in Selected Surgeries Urinary Catheter Date of Insertion: 10/05/23 Urinary Catheter Time of Insertion: 07:45 A&P Assessment and plan (1) Status post lumbar spinal fusion: We will discontinue the Demarco catheter. We will keep the Hemovac drain. Encourage incentive spirometry for pulmonary toilet. He is high risk of bleeding so continue mechanical SCDs for DVT prophylaxis. Physical therapy to work with mobilization. We will have director social service evaluate him for possible placement or home health care as he has a handicapped at home. Attestations Medical Necessity Statement*: Work to gain better pain control hopeful discharge home tomorrow. Coding Level of Care Code Acute Code for Chg Fwd Diagnoses Status post lumbar spinal fusion Z98.1
[2023-10-06] MEDS: finasteride 5 mg Tablet PO (09:38)
[2023-10-06] MEDS: docusate sodium 100 mg Capsule PO ×2 (09:38→18:01)
[2023-10-06] MEDS: metformin 500 mg Tablet PO ×2 (09:38→18:01)
[2023-10-06] MEDS: gabapentin 400 mg Capsule PO ×3 (09:38→20:28)
--- NOTE | 2023-10-06 10:00 | PC.CHAP ---
Pastoral Care Encounter/Spiritual Assessment Type of Contact [] Declined program assistant visit [] Patient/Family/Request visit [] Outpatient visit [] Follow-up visit [] Physician referral [] Code/Alert [x] Routine visit [] Staff referral [] Actively dying [] Patient sleeping [x] Family support [] [] Out of room [] Palliative care [] [] Receiving care in room [] Pre-surgical visit [] Trauma [] Long length of stay [] ICU visit [] Other: Relational/Emotional Strength [x] Patient feels connected with others/family/visitors/staff [] Distress [] Loneliness/isolation [] Abandonment Spirituality of Patient [x] Person of Katharina [] Attends Mormonism of their Katharina [x] Believes in Prayer [] Reads Bible or Anglican materials [] There are Spiritual issues to be addressed Photoengraving Printer Interventions [x] Prayer x[] Active listening [] Non-anxious presence [x] Spiritual/emotional support [] Crisis/trauma care [] Spiritual counseling [] Bereavement support [] Provided bereavement packet [] Provided Bible/devotional materials [] Provided toy/stuffed animal, coloring book to patient or family member [] Provided Communion [] Anointing/[place] [] Salvation [x] Completed spiritual assessment [] Other: Impact on Illness or Injury [] Angry [] Fearful [] Anxious [] Often cries [] Exhaustion [] Unable to work [] Unable to attend mu-ism [] Unable to walk/stand [] Unable to read [] Unable to drive [] Unable to eat/drink [] Unable to sleep [] Unable to be with family [] Patient intubated [] Other: Summary Time spent with patient 5 min
[2023-10-06] MEDS: HYDROcodone-acetaminophen 5-325 mg Tablet PO ×2 (11:24→19:47)
[2023-10-06] MEDS: ketorolac 30 mg/mL INJ IVP (11:24)
[2023-10-06] MEDS: alum-mag-hydroxide-sime 30 mL UDC PO ×2 (15:06→23:24)
[2023-10-06] MEDS: lactated ringers 1,000 ML 90 ML IV (18:01)
[2023-10-07] VITALS (51 sets, daily range): BP systolic 77–175; BP diastolic 54–78; PULSE 60–112; RESP 9–31; TEMP 36.4–37.3; O2SAT 85–99
[2023-10-07] MEDS: HYDROcodone-acetaminophen 5-325 mg Tablet PO ×4 (00:38→21:37)
--- NOTE | 2023-10-07 01:00 | ECG_ITS ---
[facility] Test Date: 2023-10-07 Pat Name: Eric Gustafson Department: Room: 257 Gender: Male Body Trimmer: : 1945 Requested By: Gomez Liz Order Number: [id number] Jad MD: Aubrey Jolly M.D. Measurements Intervals [place] Rate: 117 P: 40 WA: 165 QRS: 53 QRSD: 88 T: 202 QT: 312 QTc: 437 Interpretive Statements SINUS TACHYCARDIA ST DEVIATION AND MODERATE T-WAVE ABNORMALITY, consider myocardial ischemia Compared to ECG 10/05/2023 07:26:51 Heart rate has increased, ST changes has worsened Electronically Signed On 10-08-2023 16:47:25 JACQUARD TWINE POLISHER OPERATOR by Aubrey Jolly M.D. [email or web address]
[2023-10-07 02:35] LABS: Troponin(5th) Baseline 196 ng/L (0-15)
[2023-10-07] MEDS: aspirin 325 mg Tablet PO (02:56)
[2023-10-07] MEDS: enoxaparin 100 mg/mL Syringe 150 MG SUBCUT (02:56)
[2023-10-07] MEDS: clopidogrel 300 mg Tablet PO (02:56)
[2023-10-07 05:20] LABS: Troponin 5 2HR Delta 8.2 ABS# (0-10)
[2023-10-07 05:24] LABS: Troponin 5 2HR 204.2 ng/L (0-15)
[2023-10-07] MEDS: lactated ringers 1,000 ML 90 ML IV (05:33)
--- NOTE | 2023-10-07 06:00 | USCV_ITS ---
Eric Gustafson Age: 78 Gender: M : 1945 Exam Date: 10/07/2023 09:46 Ordering Phys: Henok Damon MD Technologist: Miles Kumar Exam Location: [facility] [place] Indication: nstemi BP: 120 / 70 HR: 78 Rhythm: Sinus Technical Quality: Adequate MEASUREMENTS (Male / Female) Normal Values 2D ECHO LV Diastolic Diameter PLAX 4.7 cm 4.2 - 5.9 / 3.9 - 5.3 cm LV Systolic Diameter PLAX 2.9 cm IVS Diastolic Thickness 1.3 cm 0.6 - 1.0 / 0.6 - 0.9 cm IVS Systolic Thickness 2.0 cm LVPW Diastolic Thickness 1.6 cm 0.6 - 1.0 / 0.6 - 0.9 cm LVPW Systolic Thickness 1.8 cm LVOT Diameter 2.1 cm LV Ejection Fraction 2D Teich 67.6 % LV Ejection Fraction MOD 2C 62.2 % LV Ejection Fraction 2C AL 65.0 % LA Diameter 3.9 cm M-MODE RV Diastolic Diameter MM 1.8 cm Aortic Annulus Diameter 3.6 cm LA Ao Ratio MM 1.2 MV E Point Septal Separation 0.8 cm DOPPLER AV Peak Velocity 125.0 cm/s LVOT Peak Velocity 87.0 cm/s AV Area Cont Eq vti 2.8 cm squared AV Area Cont Eq pk 2.4 cm squared MV Area PHT 5.0 cm squared Mitral E to A Ratio 1.2 MV E' Velocity 47.0 cm/s Mitral E to MV E' Ratio 11.1 Mitral E to LV E' Lateral Ratio 11.1 Mitral E to LV E' Septal Ratio 11.3 TR Peak Velocity 179.3 cm/s TR Peak Gradient 12.9 mmHg TV Peak E Velocity 74.0 cm/s Right Atrial Pressure 3.0 mmHg Pulmonary Artery Systolic Pressu 15.9 mmHg RV Acceleration Time 0.1 s FINDINGS Left Ventricle Mild left ventricular hypertrophy. Normal left ventricular size, systolic function and wall thickness, with no regional wall motion abnormalities. Left ventricular ejection fraction is estimated at 60 %. Right Ventricle Normal right ventricular size and systolic function. Right Atrium Normal right atrial size. Left Atrium Normal left atrial size. Mitral Valve Thickened mitral valve. Mitral annular calcification. No mitral valve stenosis. Trace mitral valve regurgitation. Aortic Valve Thickened aortic valve. No aortic valve stenosis. Tricuspid Valve Structurally normal tricuspid valve. Pulmonic Valve Structurally normal pulmonic valve. Trace pulmonary valve regurgitation. Pericardium No pericardial effusion. Aorta Normal size aortic root and proximal ascending aorta. IVC Normal IVC dimension with >50% respiratory change of the inferior vena cava. CONCLUSIONS Mild left ventricle hypertrophy. Normal left ventricle systolic function. Estimated LVEF normal at 60%. No significant valvular abnormality noted. Normal chamber sizes. Normal right heart and pulmonary pressures. Aubrey Jolly MD (Electronically Signed) Final Date: 07 October 2023 12:22 S
--- NOTE | 2023-10-07 06:04 | P.CONIM_ITS ---
Providers/Reason For Consult 2 Consulting Physician/Specialty*: Hospitalist Reason for Consult*: Non-STEMI Attending Physician: Gomez Britt DO Primary Care Provider: Bill Echavarria MD History of Present Illness History of Present Illness Eric Gustafson is a 78 year old male without previous medical history of coronary disease or CHF, hospitalist team was consulted for management of chest pain that patient was a postop day 2 11:35 PM while he was at rest. Patient is stating that he was in his bed when he started experiencing chest pressure it was nonradiating, it last for about 45 minutes, he did experience nausea but no diaphoresis, nitroglycerin did improve his symptoms, he was given therapeutic Lovenox along with a loading dose of aspirin and Plavix. Patient is stating that he is not a smoker does not drink alcohol, no previous history of coronary artery disease. Review of Systems 2 Const: Denies: fever(s) Eyes: Denies: change in vision ENMT: Denies: throat pain Card: Reports: chest pain Resp: Denies: dyspnea GI: Denies: abdominal pain : Denies: flank pain Musc: Reports: back pain Medications/Allergies Home Medications Medication Instructions Recorded Confirmed Last Taken Type clopidogrel 75 mg tablet 75 mg PO DAILY 09/05/22 09/22/23 09/15/23 History finasteride 5 mg tablet 5 mg PO DAILY 09/05/22 09/22/23 09/15/23 History metformin 500 mg tablet 500 mg PO BID 09/05/22 09/22/23 09/28/23 History pravastatin 40 mg tablet 40 mg PO DAILY 09/05/22 09/22/23 10/05/23 History gabapentin 300 mg capsule 400 mg PO TID 09/11/23 09/22/23 10/05/23 History oxycodone-acetaminophen 10 mg-325 1 tab PO Q4H PRN pain 7 days #42 10/07/23 Unknown Rx mg tablet tabs Allergies Allergy/AdvReac Type Severity Reaction Status Date / Time Penicillins Allergy ADR-Gastrointestinal Verified 09/22/23 10:43 Upset tramadol Allergy itching Verified 09/22/23 10:43 Current Medications Generic Name Dose Route Start Last Admin Trade Name Freq PRN Reason Stop Dose Admin Hydrocodone Bitart/Acetaminophen 1 - 2 tab 10/05/23 11:40 10/07/23 00:38 Hydrocodone-Acetaminophen 5-325 Mg Tablet PO 2 tab Q4H PRN Administration MODERATE TO SEVERE PAIN Al Hydrox/Mg Hydrox/Simethicone 30 ml 10/05/23 11:40 10/06/23 23:24 Qisk-Fvh-Mhmdzunbs-Anil 30 Ml Udc PO 30 ml Q4H PRN Administration INDIGESTION Docusate Sodium 100 mg 10/05/23 18:00 10/06/23 18:01 Docusate Sodium 100 Mg Capsule PO 100 mg BID FRANCISCO Administration Finasteride 5 mg 10/06/23 09:00 10/06/23 09:38 Finasteride 5 Mg Tablet PO 5 mg DAILY FRANCISCO Administration Gabapentin 400 mg 10/05/23 21:00 10/06/23 20:28 Gabapentin 400 Mg Capsule PO 400 mg TID FRANCISCO Administration Lactated Ringer's 1,000 mls @ 90 mls/hr 10/05/23 11:45 10/07/23 05:33 Lactated Ringers IV 90 mls/hr .[id number] FRANCISCO Administration Ketorolac Tromethamine 30 mg 10/05/23 11:40 10/06/23 11:24 Ketorolac 30 Mg/Ml Inj IVP 30 mg Q6H PRN Administration BREAKTHROUGH PAIN Metformin HCl 500 mg 10/05/23 18:00 10/06/23 18:01 Metformin 500 Mg Tablet PO 500 mg BID FRANCISCO Administration PFSH Acute 2 PFSH: Medical History Hyperlipidemia Benign prostatic hyperplasia Peripheral neuropathy History of carotid artery disease Type 2 diabetes mellitus Chronic kidney disease History of multiple strokes Surgical History H/O carotid endarterectomy H/O bilateral cataract extraction History of appendectomy Family History Father Stroke Mother Stroke Brother Cancer Lungs Lung disease Other Diabetes Denies family history of CAD (coronary artery disease) Clotting disorder Dementia Hyperlipidemia Psychiatric illness Chronic kidney disease (CKD) Suicide Anesthesia complication Bleeding disorder Hypertension Social History Smoking and tobacco/nicotine status: former use of tobacco/nicotine (smoked x 20 years) Alcohol intake: never Vitals/I&O/Wt Last Vital Signs Temp 98.1 F 10/07/23 05:14 Pulse 106 H 10/07/23 05:14 Resp 18 10/07/23 05:14 BP 138/73 10/07/23 05:14 Pulse Ox 99 10/07/23 05:14 O2 Del Method Nasal Cannula 10/07/23 05:14 O2 Flow Rate 6 10/05/23 11:39 10/06/23 10/06/23 10/07/23 14:59 22:59 06:59 Intake Total 2730 / 2730 1000 / 3730 Output Total 655 / 655 250 / 905 Balance 2075 / 2075 -250 / 1825 1000 / 2825 Weight last 48 hrs Weight 94.347 kg Weight 90.718 kg Physical Exam 2 Narrative: Laying supine Euvolemic GCS 15 Awake and alert Currently on room air Pleasant and cooperative GCS 15 No active chest pain S1, S2 Urinary Catheter Management: Demarco: Cath Placed During This Visit: yes, but has since been removed by the nurse Reason for Continuing Indwelling Catheter: Perioperative Use in Selected Surgeries Urinary Catheter Date of Insertion: 10/05/23 Urinary Catheter Time of Insertion: 07:45 Date Urinary Catheter Removed: 10/06/23 Time Urinary Catheter Discontinued: 10:02 Data 10/07/23 01:58 10/07/23 04:43 A&P Assessment and plan (1) Acute blood loss as cause of postoperative anemia: (2) Status post lumbar spinal fusion: (3) NSTEMI (non-ST elevated myocardial infarction): Plan Non-STEMI Significant patient will need coronary angiogram His symptoms seems to be to cardiac in origin Serial troponin and EKG Currently chest pain-free Patient received loading dose of aspirin and Plavix Start him on metoprolol atorvastatin and therapeutic Lovenox We will keep patient n.p.o. We will call cardiology Full code Patient is diabetic discontinue metformin switch him to insulin sliding scale Requested echo D-dimer not high with age adjustment Disposition: Depending on physical therapy, Hemovac drain removed today Consult Attestations 2 Medical Necessity Statement: More than 2 midnights anticipated Diagnoses Acute blood loss as cause of postoperative anemia D62 Status post lumbar spinal fusion Z98.1 NSTEMI (non-ST elevated myocardial infarction) I21.4
[2023-10-07 06:24] LABS: Basophils % 0.1 %; Eosinophils # 0.1 10^3/uL (0.0-0.8); Eosinophils % 0.8 %; Hematocrit 24.6 % (37-53); Lymphocytes # 1.1 10^3/uL (0.8-4.8); Lymphocytes % 13.3 %; Mean Corpuscular HGB Conc 32.9 g/dL (30-55); Mean Corpuscular Hemoglobin 31.6 pg (27-33); Mean Corpuscular Volume 96.1 fl (82-101); Mean Platelet Volume 9.8 fL (7.4-10.4); Monocytes # 0.9 10^3/uL (0.2-0.9); Monocytes % 10.4 %; Neutrophils # 6.32 10^3/uL (1.8-7.7); Nucleated Red Blood Cells % 0 %; Platelet Count 150 10^3/cmm (157-399); Red Blood Count 2.56 10^6/uL (3.85-5.65); Red Cell Distribution Width 12.9 % (12.1-15.1); White Blood Count 8.43 10^3/uL (3.29-11.43)
--- NOTE | 2023-10-07 06:24 | PC.NURSE ---
Around 0040 when going in to give pain med for pts back he starts complains of chest pain and described it as consistent and stabbing. Vitals at the time were 194/80 manual, 123 HR, and 94 on 2L (0@BL). EKG obtained and will be placed in pts chart. Called Dr Newman who ordered a hospitalist consult. Called Dr Loo who ordered sublingual nitrol, Trop and EKG series, D-dimer and 2mp Morphine IVP QH PRN. at 0235 the one hour troponin was 196; and at 0443 the two hour Troponin was 204.2. Will pass on in report to dayshift nurse.
[2023-10-07 06:32] LABS: Anion Gap 17.5 (5-19); Blood Urea Nitrogen 23 mg/dL (8-23); Calcium 8.3 mg/dL (8.5-10.5); Carbon Dioxide 22 mmol/L (22-29); Chloride 103 mmol/L (98-107); Glucose 165 mg/dL (65-115); Osmolality Calculated 293 mOsm/kg (285-295); Potassium 4.5 mmol/L (3.5-5.1); Sodium 138 mmol/L (136-145)
--- NOTE | 2023-10-07 06:54 | P.PN_ITS ---
Subjective 2 Subjective: POD 2 pt reported Chest pain throught the night Vitals/I&O/Wt Last Vital Signs Temp 98.1 F 10/07/23 05:14 Pulse 98 10/07/23 06:00 Resp 18 10/07/23 05:14 BP 138/73 10/07/23 05:14 Pulse Ox 99 10/07/23 05:14 O2 Del Method Nasal Cannula 10/07/23 05:14 O2 Flow Rate 6 10/05/23 11:39 10/06/23 10/06/23 10/07/23 14:59 22:59 06:59 Intake Total 2730 / 2730 1000 / 3730 Output Total 655 / 655 250 / 905 Balance 2075 / 2075 -250 / 1825 1000 / 2825 Weight last 48 hrs Weight 218 lb 9 oz Weight 208 lb Physical Exam 2 Narrative: Patient presents alert and oriented x3 with a good general appearance normal mood and affect. Normal coordination normal stability. Mild tenderness around the incisional site with the incision appear to be healing nicely. No signs of erythema or drainage. No signs of infection. Patient denies any fevers or chills. 4/5 motor strength both lower extremities with negative straight leg raise bilaterally. Calves are supple no medial thigh tenderness. Pulses are 2+ at the dorsalis pedis and posterior tibial region. Good capillary refill throughout normal sensation light touch both lower extremities. Urinary Catheter Management: Demarco: Cath Placed During This Visit: yes, but has since been removed by the nurse Reason for Continuing Indwelling Catheter: Perioperative Use in Selected Surgeries Urinary Catheter Date of Insertion: 10/05/23 Urinary Catheter Time of Insertion: 07:45 Date Urinary Catheter Removed: 10/06/23 Time Urinary Catheter Discontinued: 10:02 Data 10/07/23 01:58 10/07/23 04:43 A&P Assessment and plan (1) Status post lumbar spinal fusion: Hospitalist were consulted due to the cardiac event through the evening. Peers the troponins and D-dimer are elevated. Patient is scheduled for angiogram today. His hemoglobin is 8.1. We will discontinue the Hemovac drain. Defer to the hospitalist and cardiology team for further treatment. (2) Acute blood loss as cause of postoperative anemia: Attestations 2 Medical Necessity Statement*: Defer to hospitalist team Coding Level of Care Code Acute Code for Chg Fwd Diagnoses Status post lumbar spinal fusion Z98.1 Acute blood loss as cause of postoperative anemia D62
[2023-10-07 07:16] LABS: Glucose Point of Care 195 mg/dL (70-110)
--- NOTE | 2023-10-07 07:30 | ECG_ITS ---
[facility] Test Date: 2023-10-07 Pat Name: Eric Gustafson Department: Room: 257 Gender: Male [employer]electric Station Operator Chief: : 1945 Requested By: Henok Damon Order Number: [id number] Jad MD: Aubrey Jolly M.D. Measurements Intervals [place] Rate: 88 P: 46 DC: 168 QRS: 32 QRSD: 83 T: 89 QT: 337 QTc: 410 Interpretive Statements SINUS RHYTHM NONSPECIFIC ST & T-WAVE ABNORMALITY Compared to ECG 10/07/2023 01:00:10 Sinus tachycardia no longer present Electronically Signed On 10-08-2023 17:03:04 ADA ACCOMMODATION CONSULTANT by Aubrey Jolly M.D. [id number]
[2023-10-07 07:57] LABS: Hematocrit 24.7 % (37-53)
[2023-10-07 08:21] LABS: Troponin 5 6HR 184.5 ng/L (0-15); Troponin 5 6HR Delta -11.5 ng/L (0-12)
--- NOTE | 2023-10-07 08:24 | PM.CONSULT ---
Providers/Reason For Consult Consulting Physician/Specialty*: Cardiology Reason for Consult*: Acute coronary syndrome Requesting Physician: Dr. Damon Attending Physician: Gomez Britt DO Primary Care Provider: Bill Echavarria MD History of Present Illness History of Present Illness Eric Gustafson is a 78 year old male with no significant past cardiac history, developed a chest pain last night with ST changes on the EKG and elevated troponin. Patient had an uneventful orthopedic surgery, laminectomy, 2 days ago and until yesterday he was doing fine, however yesterday evening he started having some shortness of air and during the night he had repeated episodes of chest pain at rest. It was noted that his hemoglobin dropped significantly from 13.6 to 8.2 during the last 2 to 3 days. Currently he is laying on his bed and has very minimal chest discomfort. The pain last night was heaviness across the chest radiating to the left arm. His vitals are stable currently. Review of Systems Narrative: Detailed 10 point systemic review unremarkable except for as mentioned above in history of present illness. I note patient is a mild diabetic no previous known cardiac history. He has a fair good health up to now. Medications/Allergies Home Medications Medication Instructions Recorded Confirmed Last Taken Type clopidogrel 75 mg tablet 75 mg PO DAILY 09/05/22 09/22/23 09/15/23 History finasteride 5 mg tablet 5 mg PO DAILY 09/05/22 09/22/23 09/15/23 History metformin 500 mg tablet 500 mg PO BID 09/05/22 09/22/23 09/28/23 History pravastatin 40 mg tablet 40 mg PO DAILY 09/05/22 09/22/23 10/05/23 History gabapentin 300 mg capsule 400 mg PO TID 09/11/23 09/22/23 10/05/23 History oxycodone-acetaminophen 10 mg-325 1 tab PO Q4H PRN pain 7 days #42 10/07/23 Unknown Rx mg tablet tabs Allergies Allergy/AdvReac Type Severity Reaction Status Date / Time Penicillins Allergy ADR-Gastrointestinal Verified 09/22/23 10:43 Upset tramadol Allergy itching Verified 09/22/23 10:43 Current Medications Generic Name Dose Route Start Last Admin Trade Name Freq PRN Reason Stop Dose Admin Hydrocodone Bitart/Acetaminophen 1 - 2 tab 10/05/23 11:40 11/29/23 00:38 Hydrocodone-Acetaminophen 5-325 Mg Tablet PO 2 tab Q4H PRN Administration MODERATE TO SEVERE PAIN Al Hydrox/Mg Hydrox/Simethicone 30 ml 10/05/23 11:40 10/06/23 23:24 Bkzo-Xje-Nhbseglhz-Anil 30 Ml Udc PO 30 ml Q4H PRN Administration INDIGESTION Docusate Sodium 100 mg 10/05/23 18:00 10/06/23 18:01 Docusate Sodium 100 Mg Capsule PO 100 mg BID FRANCISCO Administration Finasteride 5 mg 10/06/23 09:00 10/06/23 09:38 Finasteride 5 Mg Tablet PO 5 mg DAILY FRANCISCO Administration Gabapentin 400 mg 10/05/23 21:00 10/06/23 20:28 Gabapentin 400 Mg Capsule PO 400 mg TID FRANCISCO Administration Insulin Human Lispro 0 unit 10/07/23 08:00 10/07/23 07:19 Insulin Lispro 100 Unit/1 Ml SUBCUT Not Given [facility] Protocol Ketorolac Tromethamine 30 mg 10/05/23 11:40 10/06/23 11:24 Ketorolac 30 Mg/Ml Inj IVP 30 mg Q6H PRN Administration BREAKTHROUGH PAIN PFSH Acute PFSH: Medical History Hyperlipidemia Benign prostatic hyperplasia Peripheral neuropathy History of carotid artery disease Type 2 diabetes mellitus Chronic kidney disease History of multiple strokes Surgical History H/O carotid endarterectomy H/O bilateral cataract extraction History of appendectomy Family History Father Stroke Mother Stroke Brother Cancer Lungs Lung disease Other Diabetes Denies family history of CAD (coronary artery disease) Clotting disorder Dementia Hyperlipidemia Psychiatric illness Chronic kidney disease (CKD) Suicide Anesthesia complication Bleeding disorder Hypertension Social History Smoking and tobacco/nicotine status: former use of tobacco/nicotine (smoked x 20 years) Alcohol intake: never Vitals/I&O/Wt Last Vital Signs Temp 98.4 F 10/07/23 08:05 Pulse 91 10/07/23 08:05 Resp 21 H 10/07/23 08:05 BP 143/69 10/07/23 08:05 Pulse Ox 99 10/07/23 08:05 O2 Del Method Nasal Cannula 10/07/23 08:05 O2 Flow Rate 6 10/05/23 11:39 10/06/23 10/07/23 10/07/23 22:59 06:59 14:59 Intake Total 1000 / 3730 Output Total 250 / 905 250 / 250 Balance -250 / 1825 1000 / 2825 -250 / -250 Weight last 48 hrs Weight 218 lb 9 oz Weight 208 lb Physical Exam Narrative: Patient laying comfortably however he does have a mild chest discomfort. No respiratory distress. Vitals: Blood pressure 118/68. Pulse 84/min regular with occasional PVCs. O2 saturation 96% on room air. HENMT exam unremarkable. Eyes: Conjunctiva looks pale, otherwise unremarkable. There is no JVD. Lungs auscultation reveals good air entry bilaterally. No added sounds. Cardiovascular exam: Normal first and second heart sounds. No added sounds. Abdomen: Soft nontender bowel sounds audible. Lower extremities: No lower extremity edema. Skin: Warm and dry. Neuro: Grossly intact. Urinary Catheter Management: Demarco: Cath Placed During This Visit: yes, but has since been removed by the nurse Reason for Continuing Indwelling Catheter: Perioperative Use in Selected Surgeries Urinary Catheter Date of Insertion: 10/05/23 Urinary Catheter Time of Insertion: 07:45 Date Urinary Catheter Removed: 10/06/23 Time Urinary Catheter Discontinued: 10:02 Data 10/07/23 07:41 10/07/23 04:43 A&P Assessment and plan (1) NSTEMI (non-ST elevated myocardial infarction): Plan 78-year gentleman, postop orthopedic surgery (laminectomy) a 2 days ago now developed acute coronary syndrome, NSTEMI. There is an significant drop of the hemoglobin and his current ACS symptoms are likely due to drop of hemoglobin. Most likely he has underlying coronary disease and the symptoms got aggravated with the development of anemia. Overall he is stable however ongoing anginal pain at rest. Clinically no heart failure Recommendation: 1. To hold heparin/Lovenox, aspirin as well as Plavix. 2. Transfuse at least 2 units of blood into (packed cells). 3. I would preferably would like to transfer this patient to ICU as he will need intravenous and nitro and close monitoring. 4. Oral metoprolol at 25 mg twice a day. Thanks for asked me to see this patient in consultation. Coding Level of Care Code Acute Code for [facility] Diagnoses NSTEMI (non-ST elevated myocardial infarction) I21.4 Time Spent (min) 25
[2023-10-07] MEDS: metoprolol tartrate 25 mg Tablet PO ×2 (08:30→21:38)
--- NOTE | 2023-10-07 08:43 | PC.NURSE ---
first unit of prbc's started per Dr. Damon and Shanae. VSS. Pt. denies any chest pain at this time but does complain of shortness of breath. O2 2LNC placed on pt. Continuous pulse ox placed on pt as well. O2 sat 99% at this time. No ICU bed available at this time. Monserrat Carter RN sitting with pt at bedside to monitor more closely.
[2023-10-07] MEDS: nitroglycerin 1 gm/inch oint Pkt 0.5 INCH TOPICAL ×3 (09:16→21:41)
[2023-10-07] MEDS: FUROsemide 10 mg/mL SDV 4mL 40 MG IVP (09:17)
[2023-10-07] MEDS: docusate sodium 100 mg Capsule PO ×2 (09:17→17:43)
[2023-10-07] MEDS: finasteride 5 mg Tablet PO (09:17)
[2023-10-07] MEDS: gabapentin 400 mg Capsule PO ×3 (09:17→21:38)
--- NOTE | 2023-10-07 10:32 | P.PN_ITS ---
Documented by User: ELENA Field STDJOHN 10/07/23 11:04 Subjective 2 Subjective: Patient is laying in bed and currently receiving a unit of blood this am, nurse noted to be at bedside. Patient appeared to be SOB and said he was having some anxiety at this time. Patient to be transferred to the ICU for high level of care. Medications: Reviewed: Yes Vitals/I&O/Wt Last Vital Signs Temp 98.2 F 10/07/23 10:08 Pulse 83 10/07/23 10:08 Resp 18 10/07/23 10:08 BP 120/64 10/07/23 10:08 Pulse Ox 99 10/07/23 10:08 O2 Del Method Nasal Cannula 10/07/23 08:05 O2 Flow Rate 6 10/05/23 11:39 10/06/23 10/07/23 10/07/23 22:59 06:59 14:59 Intake Total 1000 / 3730 0 / 0 Output Total 250 / 905 925 / 925 Balance -250 / 1825 1000 / 2825 -925 / -925 Weight last 48 hrs Weight 218 lb 9 oz Weight 208 lb Physical Exam 2 Const: COMMON NORMALS: patient oriented x3 and alert O RIENTATION/CONSCIOUSNESS: Yes oriented to person, Yes oriented to place and Yes oriented to time Neck/C-Spine: COMMON NORMALS: no JVD Resp: EFFORT & INSPECTION: Yes symmetric chest movement and Yes labored Cardio: COMMON NORMALS: no JVD, S1 normal heart sound present and S2 normal heart sound present HEART SOUNDS: S1 normal heart sound present and S2 normal heart sound present Neuro: COMMON NORMALS: patient oriented x3 and moves all extremities S ENSORIUM/ORIENTATION: Yes alert, Yes oriented to person, Yes oriented to place and Yes oriented to time SPEECH: speech normal Urinary Catheter Management: Demarco: Cath Placed During This Visit: yes, but has since been removed by the nurse Reason for Continuing Indwelling Catheter: Perioperative Use in Selected Surgeries Urinary Catheter Date of Insertion: 10/05/23 Urinary Catheter Time of Insertion: 07:45 Date Urinary Catheter Removed: 10/06/23 Time Urinary Catheter Discontinued: 10:02 Data 10/07/23 07:41 10/07/23 04:43 A&P Assessment and plan (1) NSTEMI (non-ST elevated myocardial infarction): (2) Acute blood loss as cause of postoperative anemia: (3) Status post lumbar spinal fusion: (4) Type 2 diabetes mellitus: Coding Level of Care Code 62464 Diagnoses NSTEMI (non-ST elevated myocardial infarction) I21.4 Acute blood loss as cause of postoperative anemia D62 Status post lumbar spinal fusion Z98.1 Type 2 diabetes mellitus E11.9 Time Spent (min) 35 Documented by User: Irving Brown MD 10/07/23 11:33 Subjective 2 Subjective: Patient is laying in bed and currently receiving a unit of blood this am, nurse noted to be at bedside. Patient appeared to be SOB and said he was having some anxiety at this time. Patient to be transferred to the ICU for high level of care. Patient denies any current chest pain. He reports he is somewhat short of breath. He feels nervous, and nursing is present wondering if he would benefit from lorazepam. Physical Exam 2 Urinary Catheter Management: Demarco: Cath Placed During This Visit: yes, but has since been removed by the nurse Data 10/07/23 07:41 10/07/23 04:43 Other Labs: Troponin baseline 196, 2-hour 204, 6-hour 184 Last EKG by my read demonstrates sinus rhythm, normal axis. ST depression/flattening V4 through 6, less prominent than prior EKGs. A&P Assessment and plan (1) NSTEMI (non-ST elevated myocardial infarction): Patient has chest discomfort last night, and enzyme elevation consistent with non-ST elevation myocardial infarction. He received Plavix, aspirin Continue statin He received Lovenox 1 mg/kg around 2 AM Cardiology has been consulted Hold any further anticoagulation until reevaluation tomorrow. There is consideration for angiogram in the future. Transfer to ICU Telemetry Check echocardiogram He has receiving 2 units of packed red blood cells, to achieve hemoglobin greater than 9 in this patient with non-ST elevation myocardial infarction. Nitroglycerin ointment Beta-hiral (2) Acute blood loss as cause of postoperative anemia: Patient with significant acute postoperative blood loss anemia. He has no evidence of ongoing bleeding on physical exam Transfused 2 units of packed red blood cells Hold further anticoagulation Recheck hemoglobin 30 minutes to 1 hour following transfusion Potential serial hemoglobins later today, and certainly tomorrow morning. Check CMP tomorrow morning as well. Lasix 40 mg IV x 1 to prevent fluid overload (3) Status post lumbar spinal fusion: Managed per orthopedic spine surgery (4) Type 2 diabetes mellitus: Consistent carb diet Sliding scale insulin Plan Past history of CVA Multiple other medical problems as outlined in past medical history SCDs for DVT prophylaxis Lovenox was used for DVT prophylaxis as well as anticoagulation for angina. Reevaluate tomorrow morning whether further doses are acceptable considering this patient's severe anemia Attestations 2 Medical Necessity Statement*: Needs continued hospitalization for evaluation of non-ST elevation myocardial infarction, anemia Diagnoses NSTEMI (non-ST elevated myocardial infarction) I21.4 Acute blood loss as cause of postoperative anemia D62 Status post lumbar spinal fusion Z98.1 Type 2 diabetes mellitus E11.9 Time Spent (min) 35
[2023-10-07 11:51] LABS: Glucose Point of Care 183 mg/dL (70-110)
--- NOTE | 2023-10-07 13:25 | PC.NURSE ---
Report called to Parminder in ICU. Pt transferred to ICU at this time with family at bedside.
[2023-10-07] MEDS: LORazepam 2 mg/mL INJ 1 mL 0.5 MG IVP (15:39)
--- NOTE | 2023-10-07 16:20 | PC.NURSE ---
Hemovac out. Pt needed to urinate badly and refused to use the urial but wanted to go to the restroom. In the haste of trying to get to the restroom and all the monitor cords, the hemovac drain came dislodged from the pt. Dr. Brown and Jj (Dr. Britt's MORPHOLOGY TEACHER) were notified and ok with it being out.
[2023-10-07 17:39] LABS: Glucose Point of Care 155 mg/dL (70-110)
[2023-10-07] MEDS: insulin lispro 100 unit/1 mL SUBCUT (17:43)
[2023-10-07 19:43] LABS: Hematocrit 35.4 % (37-53)
[2023-10-07 21:47] LABS: Glucose Point of Care 162 mg/dL (70-110)
[2023-10-07] MEDS: morphine 4 mg/mL SDV 1 mL 2 MG IVP (21:54)
[2023-10-08] VITALS (14 sets, daily range): BP systolic 123–172; BP diastolic 53–83; PULSE 72–85; RESP 15–28; TEMP 36.9–37.8; O2SAT 92–99; BMI 32.3
[2023-10-08] MEDS: morphine 4 mg/mL SDV 1 mL 2 MG IVP (01:43)
[2023-10-08] MEDS: nitroglycerin 1 gm/inch oint Pkt 0.5 INCH TOPICAL ×4 (03:25→23:44)
[2023-10-08 03:46] LABS: Basophils % 0.4 %; Eosinophils # 0.1 10^3/uL (0.0-0.8); Eosinophils % 1.6 %; Hematocrit 31.4 % (37-53); Lymphocytes # 1.3 10^3/uL (0.8-4.8); Lymphocytes % 15.6 %; Mean Corpuscular HGB Conc 32.8 g/dL (30-55); Mean Corpuscular Hemoglobin 30.5 pg (27-33); Mean Corpuscular Volume 92.9 fl (82-101); Mean Platelet Volume 8.9 fL (7.4-10.4); Monocytes # 1.1 10^3/uL (0.2-0.9); Monocytes % 12.6 %; Neutrophils # 5.91 10^3/uL (1.8-7.7); Neutrophils % 69.4 %; Nucleated Red Blood Cells % 0.2 %; Platelet Count 154 10^3/cmm (157-399); Red Blood Count 3.38 10^6/uL (3.85-5.65); Red Cell Distribution Width 15.8 % (12.1-15.1); White Blood Count 8.51 10^3/uL (3.29-11.43)
[2023-10-08 04:14] LABS: Alanine Aminotransferase 14 U/L (0-41); Albumin Level 3.5 g/dL (3.5-5.2); Alkaline Phosphatase 49 U/L (40-130); Anion Gap 12.7 (5-19); Aspartate Amino Transferase 25 U/L (0-40); Blood Urea Nitrogen 20 mg/dL (8-23); Calcium 8.7 mg/dL (8.5-10.5); Carbon Dioxide 28 mmol/L (22-29); Chloride 104 mmol/L (98-107); Globulin 2.5 g/dL (1.3-4.6); Glucose 143 mg/dL (65-115); Magnesium 2.2 mg/dL (1.7-2.3); Osmolality Calculated 295 mOsm/kg (285-295); Potassium 4.7 mmol/L (3.5-5.1); Sodium 140 mmol/L (136-145); Total Bilirubin 0.7 mg/dL (0.15-1.2)
[2023-10-08] MEDS: ondansetron 2 mg/ML SDV 2 mL 4 MG IVP (06:49)
--- NOTE | 2023-10-08 07:22 | P.PN_ITS ---
Subjective 2 Subjective: POD 3 Patient comfortable. Reports back pain. States his leg pain has improved. Vitals/I&O/Wt Last Vital Signs Temp 97.5 F L 10/07/23 22:00 Pulse 80 10/08/23 06:06 Resp 16 10/08/23 06:06 BP 172/83 10/08/23 04:01 Pulse Ox 95 10/08/23 06:06 O2 Del Method Nasal Cannula 10/07/23 22:00 O2 Flow Rate 2 10/07/23 22:00 10/07/23 10/08/23 10/08/23 22:59 06:59 14:59 Intake Total 1500 / 1850 Output Total 150 / 1375 350 / 1725 Balance 1350 / 475 -350 / 125 Weight last 48 hrs Weight 218 lb 9 oz Weight 218 lb 9 oz Physical Exam 2 Narrative: Patient presents alert and oriented x3 with a good general appearance normal mood and affect. Normal coordination normal stability. Mild tenderness around the incisional site with the incision appear to be clean and dry. No signs of erythema or drainage. No signs of infection. Patient denies any fevers or chills. 4/5 motor strength both lower extremities with negative straight leg raise bilaterally. Calves are supple no medial thigh tenderness. Pulses are 2+ at the dorsalis pedis and posterior tibial region. Good capillary refill throughout normal sensation light touch both lower extremities. Urinary Catheter Management: Demarco: Cath Placed During This Visit: yes, but has since been removed by the nurse Reason for Continuing Indwelling Catheter: Perioperative Use in Selected Surgeries Urinary Catheter Date of Insertion: 10/05/23 Urinary Catheter Time of Insertion: 07:45 Date Urinary Catheter Removed: 10/06/23 Time Urinary Catheter Discontinued: 10:02 Data 10/08/23 03:20 10/08/23 03:20 A&P Assessment and plan (1) Acute blood loss as cause of postoperative anemia: Hemovac drain was discontinued. continue incentive spirometer for pulmonary toilet. Physical therapy to mobilize when cleared by the hospitalist team. (2) Status post lumbar spinal fusion: Attestations 2 Medical Necessity Statement*: Defer to Medical team Coding Level of Care Code Acute Code for [facility] Diagnoses Acute blood loss as cause of postoperative anemia D62 Status post lumbar spinal fusion Z98.1
[2023-10-08 07:58] LABS: Glucose Point of Care 134 mg/dL (70-110)
--- NOTE | 2023-10-08 07:58 | PC.NURSE ---
Provider is notified that we have a shortage of Charlie drip he okayed to leave patient on Nitro paste.
[2023-10-08] MEDS: clopidogrel 75 mg Tablet PO (08:35)
[2023-10-08] MEDS: gabapentin 400 mg Capsule PO ×3 (08:36→21:00)
[2023-10-08] MEDS: docusate sodium 100 mg Capsule PO ×2 (08:36→17:57)
[2023-10-08] MEDS: metoprolol tartrate 25 mg Tablet PO ×2 (08:36→21:00)
[2023-10-08] MEDS: aspirin 81 mg EC Tablet PO (08:36)
[2023-10-08] MEDS: pantoprazole DR 40 mg Tablet PO (08:36)
[2023-10-08] MEDS: finasteride 5 mg Tablet PO (08:36)
--- NOTE | 2023-10-08 08:53 | XACV_ITS ---
Exam Room: [facility] Ht: 175 cm Wt: 99 kg BSA: 2.23 m2 Gender: Male : 1945 Any Known Allergies: Other Exam Priority: Routine Procedure(s): Procedure Description: Diagnostic procedure Procedure Description: Coronary Angiography Diagnostic Cath Status: Urgent Diagnostic Findings * Diagnostic coronary angiogram. * Left main: Calcified vessel with 80% ostial stenosis. There was significant pressure dampening with catheter engagement of left main with a drop-of systolic pressure from 130s to 80s systolic. There is no significant disease in the mid left main or at the bifurcation. * LAD: Mild calcification in the proximal to mid segment. 40%-50% diffuse disease in the mid segment. * Left circumflex artery: Large size vessel. Mild 30% stenosis in the mid segment. Large size OM1 vessel with 70-80% stenosis in proximal segment. * Right coronary artery: Proximal mid segment 40% diffuse stenosis. PDA, medium size vessel with 90% stenosis, likely plaque rupture. * Conclusion: 1. Severe left main ostial disease. 2. Significant stenosis in proximal OM 1 and mid PDA. * Recommendation: Cardiac surgery consultation for possible CABG, however considering angiographic finding and patient's clinical status including previous history of CVAs and carotid endarterectomy, I would prefer PCI approach, including PCI of ostial left main and PDA. Pressures Phase:Rest AO : 111 / 41 ( 63 ) @ 10:29:00 AM 120 / 60 ( 84 ) @ 10:30:00 AM 85 / 36 ( 52 ) @ 10:30:00 AM 94 / 33 ( 54 ) @ 10:30:00 AM 129 / 65 ( 91 ) @ 10:31:00 AM 95 / 32 ( 52 ) @ 10:35:00 AM 127 / 59 ( 87 ) @ 10:39:00 AM 127 / 58 ( 86 ) @ 10:39:00 AM Clinical Evaluation EBL: 5mL-10mL Procedural Details Pre-Procedure Time Out. Identified patient by full name and date of as verbalized by the patient/guarantor. Does the consent match the physician's order: Yes. Accurate & Complete Informed Consent: Yes. Inpatient/Outpatient History & Physical on Chart: Yes. If H&P is completed, is and addenduem needed: No; If yes, is the addendum complete: N/A. Visualize and Verify Site with Patient/Guarantor: N/A. Relevant Radiology Images available: Yes. Pre-op teaching completed and patient verbalized understanding. The risks, benefits, and alternatives of sedation and/or procedure were discussed by physician. The patient agrees to continue. Procedure started. [facility] Clinical Fraility Score: 5: Mildly Frail. Nutrition Professor Indications: ACS > 24 hours. Chest Pain Symptom Assessment: Atypical Angina. Correct patient, site and procedure confirmed by cath team. Current diagnosis: NSTEMI. PERRLA. Strong, equal hand diesel lube tech bilaterally. Lungs clear x 5 lobes. IV Site on Arrival: 20 gauge in the right anticubital. IV Fluids: 0.9% NaCl at KVO. 0 mL infused prior to laborer hoisting. Oxygen started at 2liters/min via nasal canula. right groin was prepped with chloroprep then draped in the usual sterile fashion. right radial was prepped with chloroprep then draped in the usual sterile fashion. Baseline sample Acquired. HR: 72 BPM. Physician notified. Current Diagnosis : NSTEMI. Physician arrived. Physician scrubbed in. Immediate Pre-Procedure Time Out. Correct Patient: Yes; Correct Procedure: Yes; Correct Site: Yes; Correct Patient Position: Yes; Correct Supplies: Yes; Dried Flammable Prep: Yes; Blood Products Available: N/A;. Lidocaine 1% infiltrated to the right radial. Arterial access obtained. A 6 eritrean JL3.5 catheter in over wire. Multiple views taken of left coronary artery. Catheter removed over the exchange wire. A 6 eritrean JR4 catheter in over wire. Multiple views taken of right coronary artery. Catheter removed over the exchange wire. A TR Band was successful obtaining hemostatsis at the Right Radial artery insertion site. Post Procedure: Pulses reassessed and unchanged. PERRLA. Strong, equal hand diesel lube tech bilaterally. No VTE prophylaxis required. Medication's Wasted: Nitro = 49.8 mcg. Medication's Wasted: Heparin = 1000 units. Medication's Wasted: Other = Fentanyl 75mcg Versed 1 mg. Total IV fluids: 25 mL. Post-op diagnosis: CAD. Complications: None. Estimated blood loss: 5mL-10mL. Responsiveness - Normal response to verbal stimuli; alert and oriented, PERRLA. Airway - Unaffected, no intervention required; spontaneous ventilation. Circulation: W/N/L, pulses unchanged. Nausea/Vomiting: No. Procedure completed. Patient transferred by bed to ICU. Vital chart was stopped. Access Site Site: Right Radial artery Sheath Size: 6 Fr Hemostasis Method: TR Band Hemostasis Success: Successful Complication Findings: None. Procedure Medications Start: 10:17 AM Stop: 10:17 AM Medication: Fentanyl Amount: 25 mcg Route: I.V. Start: 10:25 AM Stop: 10:25 AM Medication: Versed Amount: 1 mg Route: I.V. Start: 10:27 AM Stop: 10:27 AM Medication: Nitrogylcerin Amount: 200 mcg Route: I.A. Start: 10:29 AM Stop: 10:29 AM Medication: Heparin Amount: 5000 units Route: I.V. I, the attending physician, have reviewed and verified all procedure medications. Yes, all medications given per verbal order History/Risk Factors Hypertension: Yes Dyslipidemia: Yes Peripheral Arterial Disease (PAD): No Myocardial Infarction (IL): No Obesity: No Renal Disease: No Tobacco Use: Former Prior Interventions PCI: No CABG: No Valve Surgery: No Report Signatures Finalized by Aubrey Jolly MD on 10/08/2023 12:17 PM
[2023-10-08] MEDS: diphenhydrAMINE 50 mg Capsule PO (09:47)
[2023-10-08] MEDS: sodium chloride 0.9% 1,000 ML 50 ML IV (09:47)
--- NOTE | 2023-10-08 09:53 | PC.NURSE ---
Patient was not given the aspirin 325mg since he had aspirin 81mg already this morning per seed laboratory assistant.
--- NOTE | 2023-10-08 10:00 | PC.NURSE ---
Patient left ICU to cardiac cath tech at [id number].
--- NOTE | 2023-10-08 11:09 | PC.NURSE ---
Case Finishing Machine Adjuster ordered Nitro paste 0.5 inch topical every 6 hours. Order entered.
--- NOTE | 2023-10-08 11:14 | PC.NURSE ---
Patient returns from semiconductor lab technician at 1105.
--- NOTE | 2023-10-08 11:33 | P.PN_ITS ---
Subjective 2 Subjective: Eric to be reported no chest discomfort this morning. He had some back pain. He was still a little short of breath but better than before. Medications: Reviewed: Yes Vitals/I&O/Wt Last Vital Signs Temp 98.5 F 10/08/23 08:00 Pulse 72 10/08/23 08:00 Resp 19 H 10/08/23 08:00 BP 146/83 10/08/23 08:00 Pulse Ox 96 10/08/23 08:00 O2 Del Method Room Air 10/08/23 08:00 O2 Flow Rate 2 10/07/23 22:00 10/07/23 10/08/23 10/08/23 22:59 06:59 14:59 Intake Total 1500 / 1850 Output Total 150 / 1375 350 / 1725 275 / 275 Balance 1350 / 475 -350 / 125 -275 / -275 Weight last 48 hrs Weight 99.138 kg Weight 99.138 kg Physical Exam 2 Narrative: General exam no distress Neck is supple Cardiovascular regular rate and rhythm, no murmur Lungs clear Abdomen is soft Extremities no cyanosis clubbing or edema Urinary Catheter Management: Demarco: Cath Placed During This Visit: yes, but has since been removed by the nurse Reason for Continuing Indwelling Catheter: Perioperative Use in Selected Surgeries Urinary Catheter Date of Insertion: 10/05/23 Urinary Catheter Time of Insertion: 07:45 Date Urinary Catheter Removed: 10/06/23 Time Urinary Catheter Discontinued: 10:02 Data 10/08/23 03:20 10/08/23 03:20 Other Labs: Echo demonstrated mild LVH, preserved EF at 60% A&P Assessment and plan (1) NSTEMI (non-ST elevated myocardial infarction): Patient has chest discomfort last night, and enzyme elevation consistent with non-ST elevation myocardial infarction. He received Plavix, aspirin. Continue this Add Imdur Continue statin Change Lovenox to DVT prophylaxis Cardiology has been consulted, angiogram occurred this morning. This demonstrated an 80% LAD ostial lesion. Recommend continued medical treatment until further determination of approach with consideration of outpatient intervention Continue beta-hiral, increase as tolerated He has receiving 2 units of packed red blood cells, to achieve hemoglobin and hemoglobin is 10.3, adequate I had a discussion with cardiology this morning they were worried he was still having chest discomfort. He was placed on a nitroglycerin drip. This is a high risk medication. Following his angiogram I believe we can take him off of this. (2) Acute blood loss as cause of postoperative anemia: Patient with significant acute postoperative blood loss anemia. He has no evidence of ongoing bleeding on physical exam Transfused 2 units of packed red blood cells 10/07 CBC, CMP tomorrow (3) Status post lumbar spinal fusion: Managed per orthopedic spine surgery (4) Type 2 diabetes mellitus: Consistent carb diet Sliding scale insulin Plan Past history of CVA Multiple other medical problems as outlined in past medical history SCDs for DVT prophylaxis Lovenox for DVT prophylaxis Transfer to [facility] Attestations 2 Medical Necessity Statement*: Requires continued hospitalization for close monitoring following orthopedic spine surgery, non-ST elevation myocardial infarction, acute postoperative blood loss anemia Diagnoses NSTEMI (non-ST elevated myocardial infarction) I21.4 Acute blood loss as cause of postoperative anemia D62 Status post lumbar spinal fusion Z98.1 Type 2 diabetes mellitus E11.9 Time Spent (min) 27
[2023-10-08 12:04] LABS: Glucose Point of Care 184 mg/dL (70-110)
[2023-10-08] MEDS: insulin lispro 100 unit/1 mL SUBCUT (12:20)
[2023-10-08] MEDS: HYDROcodone-acetaminophen 5-325 mg Tablet PO ×2 (15:02→22:06)
--- NOTE | 2023-10-08 17:18 | PM.PN ---
Subjective Subjective: Clinically stable overnight. Had mild angina pain this morning. Vitals are stable. Hemoglobin stable at 10.3 after 2 units of blood transfusion. No apparently a further bleeding from orthopedic surgery site. Patient hemodynamically stable Considering a significant NSTEMI and ongoing intermittent angina plan for cardiac catheter today. Discussed with the patient and his , explained the procedure and discussed the need of the procedure during this admission. Explained the risk and the benefits of of the procedure. patient and his agreed. Cardiac catheterization revealed significant ostial left main disease. There is also significant stenosis in the distal branch of RCA (PDA). Procedure was stopped for further discussion with the patient and family regarding cardiac bypass, CABG, versus ostial left main intervention with stent. Medications: Medication Review Details: Medication reviewed and adjusted. Vitals/I&O/Wt Last Vital Signs Temp 99.6 F 10/08/23 16:00 Pulse 80 10/08/23 16:00 Resp 28 H 10/08/23 16:00 BP 163/68 10/08/23 16:00 Pulse Ox 96 10/08/23 16:00 O2 Del Method Room Air 10/08/23 16:00 O2 Flow Rate 2 10/07/23 22:00 10/08/23 10/08/23 10/08/23 06:59 14:59 22:59 Intake Total 255.833 / 255.833 Output Total 350 / 1725 275 / 275 Balance -350 / 125 -19.167 / -19.167 Weight last 48 hrs Weight 218 lb 9 oz Weight 218 lb 9 oz Physical Exam Narrative: Vitals are stable. Patient asymptomatic. Not in any distress. Blood pressure 132/74, pulse 78/min regular There is no JVD Lungs auscultation revealed good air entry bilaterally. No added sounds Card examination normal first and second heart sounds. No added sounds Lower extremities: Normal, no pedal edema Skin warm and dry Neuro grossly intact Urinary Catheter Management: Demarco: Cath Placed During This Visit: yes, but has since been removed by the nurse Reason for Continuing Indwelling Catheter: Perioperative Use in Selected Surgeries Urinary Catheter Date of Insertion: 10/05/23 Urinary Catheter Time of Insertion: 07:45 Date Urinary Catheter Removed: 10/06/23 Time Urinary Catheter Discontinued: 10:02 Data 10/08/23 03:20 10/08/23 03:20 A&P Assessment and plan (1) NSTEMI (non-ST elevated myocardial infarction): Plan 78-year-old male patient with NSTEMI. Related to acute acute blood loss. Clinically and hemodynamically stable. Cardiac cath today revealed significant left main ostial disease. There is also stenosis in the distal RCA/PDA as well as in the good-sized OM branch. Plan: Continue his current medication Further discussion with the patient and family regarding management of left main ostial disease, CABG versus PCI. Considering the patient's overall clinical scenario and especially with a previous history of CVA and carotid endarterectomy, I would favor percutaneous intervention, PCI of ostial left main and PDA. Attestations Medical Necessity Statement*: NSTEMI Coding Level of Care Code Acute Code for [facility] Diagnoses NSTEMI (non-ST elevated myocardial infarction) I21.4 Time Spent (min) 25
[2023-10-08 17:30] LABS: Glucose Point of Care 140 mg/dL (70-110)
--- NOTE | 2023-10-08 18:15 | PC.NURSE ---
Patient presents to ICU with a right radial TR-band. 2ml's of air is removed for TR-band at 1225. 2ml's of air is removed at 1315. 2ml's of air is removed at 1350. 2ml's of air is removed at 1350. 2ml's of air is removed at 1415. 2ml's of air is removed at 1450. 2ml's of air is removed at 1515. 2ml's of air is removed at 1530. 2ml's of air is removed at 1600. TR-band is removed at 1615 and 2x2 and tegaderm is applied. No hematoma is noted. Patient tolerated well.
[2023-10-08] MEDS: enoxaparin 40 mg/0.4 mL Syringe SUBCUT (20:59)
[2023-10-08 21:14] LABS: Glucose Point of Care 160 mg/dL (70-110)
--- NOTE | 2023-10-08 21:31 | PC.NURSE ---
Notified Daughter Violet Morin that patient is going to be transferred to [facility] room 107.
--- NOTE | 2023-10-08 22:04 | PC.NURSE ---
Report given to VIKA turner
--- NOTE | 2023-10-08 22:19 | PC.NURSE ---
Transferred to 107 via wheelchair. Patient transferred to bed and hooked to pin machine tender. Update given to VIKA Avitia
[2023-10-09] VITALS (9 sets, daily range): BP systolic 123–177; BP diastolic 67–81; PULSE 71–87; RESP 16–24; TEMP 36.4–37.7; O2SAT 94–99
[2023-10-09 04:48] LABS: Basophils % 0.3 %; Eosinophils # 0.2 10^3/uL (0.0-0.8); Eosinophils % 2.9 %; Lymphocytes # 1.6 10^3/uL (0.8-4.8); Lymphocytes % 19.8 %; Mean Corpuscular HGB Conc 32.8 g/dL (30-55); Mean Corpuscular Hemoglobin 30.3 pg (27-33); Mean Corpuscular Volume 92.5 fl (82-101); Mean Platelet Volume 9.4 fL (7.4-10.4); Monocytes % 12.4 %; Neutrophils % 64.1 %; Nucleated Red Blood Cells % 0 %; Platelet Count 198 10^3/cmm (157-399); Red Blood Count 3.46 10^6/uL (3.85-5.65); Red Cell Distribution Width 15.1 % (12.1-15.1); White Blood Count 7.81 10^3/uL (3.29-11.43)
[2023-10-09 05:15] LABS: Anion Gap 15.5 (5-19); Blood Urea Nitrogen 22 mg/dL (8-23); Calcium 8.7 mg/dL (8.5-10.5); Carbon Dioxide 23 mmol/L (22-29); Chloride 104 mmol/L (98-107); Glucose 134 mg/dL (65-115); Osmolality Calculated 291 mOsm/kg (285-295); Potassium 4.5 mmol/L (3.5-5.1); Sodium 138 mmol/L (136-145)
[2023-10-09] MEDS: nitroglycerin 1 gm/inch oint Pkt 0.5 INCH TOPICAL (05:50)
[2023-10-09 08:31] LABS: Glucose Point of Care 133 mg/dL (70-110)
--- NOTE | 2023-10-09 09:40 | P.PN_ITS ---
Documented by User: ELENA Field STDNT 10/09/23 10:03 Subjective 2 Subjective: Mr. Gustafson noted to be resting in bed this morning, reports some lower back pain. Denies shortness of breath at this time, on room air. Vitals/I&O/Wt Last Vital Signs Temp 97.6 F 10/09/23 08:00 Pulse 87 10/09/23 08:46 Resp 16 10/09/23 08:46 BP 143/69 10/09/23 08:00 Pulse Ox 97 10/09/23 08:46 O2 Del Method Room Air 10/09/23 08:46 O2 Flow Rate 2 10/07/23 22:00 10/08/23 10/09/23 10/09/23 22:59 06:59 14:59 Intake Total 600 / 855.833 120 / 120 Output Total 150 / 425 200 / 625 Balance -150 / -169.167 400 / 230.833 120 / 120 Weight last 48 hrs Weight 205 lb 8 oz Weight 218 lb 9 oz Physical Exam 2 Narrative: General exam: Patient alert, in no apparent distress. Neck is supple, no lymphadenopathy. Cardiovascular regular rhythm and rate, no murmur. Lungs sound clear to auscultation, patient on room air. Abdomen soft, non-tender, normoactive bowel sounds. : reports no difficulty urinating, uses a urinal. Extremities no cyanosis, clubbing, or edema. Skin: right radial wrist cover with with dressing, puncture site from angiogram on 10/08. Radial pulse, 2+. Urinary Catheter Management: Demarco: Cath Placed During This Visit: yes, but has since been removed by the nurse Reason for Continuing Indwelling Catheter: Perioperative Use in Selected Surgeries Urinary Catheter Date of Insertion: 10/05/23 Urinary Catheter Time of Insertion: 07:45 Date Urinary Catheter Removed: 10/06/23 Time Urinary Catheter Discontinued: 10:02 Data 10/09/23 04:12 10/09/23 04:12 A&P Assessment and plan (1) NSTEMI (non-ST elevated myocardial infarction): Patient has chest discomfort last night, and enzyme elevation consistent with non-ST elevation myocardial infarction. Continue Plavix, aspirin, Imdur, statin. Lovenox to DVT prophylaxis Cardiology has been consulted. 10/08 angiogram demonstrated an 80% LAD ostial lesion. Recommend continued medical treatment until further determination of approach with consideration of outpatient intervention Continue beta-hiral, increase metoprolol to 50 mg twice daily. He received 2 units of packed red blood cells 10/07, hemoglobin noted to be 10.5 this morning. Nitroglycerin drip and Nitro-Bid discontinued, no complaints of chest pain. (2) Acute blood loss as cause of postoperative anemia: Patient with significant acute postoperative blood loss anemia. He has no evidence of ongoing bleeding on physical exam this morning. Transfused 2 units of packed red blood cells 10/07. CBC, CMP tomorrow (3) Status post lumbar spinal fusion: Managed per orthopedic spine surgery (4) Type 2 diabetes mellitus: Consistent carb diet Sliding scale insulin Plan Past history of CVA Multiple other medical problems as outlined in past medical history SCDs for DVT prophylaxis Lovenox for DVT prophylaxis Coding Level of Care Code 37398 Diagnoses NSTEMI (non-ST elevated myocardial infarction) I21.4 Acute blood loss as cause of postoperative anemia D62 Status post lumbar spinal fusion Z98.1 Type 2 diabetes mellitus E11.9 Time Spent (min) 24 Documented by User: Irving Brown MD 10/09/23 11:43 Subjective 2 Medications: Reviewed: Yes Physical Exam 2 Urinary Catheter Management: Demarco: Cath Placed During This Visit: yes, but has since been removed by the nurse Data 10/09/23 04:12 10/09/23 04:12 A&P Assessment and plan (1) NSTEMI (non-ST elevated myocardial infarction): Patient has chest discomfort last night, and enzyme elevation consistent with non-ST elevation myocardial infarction. Continue Plavix, aspirin, Imdur, statin. Lovenox to DVT prophylaxis Cardiology has been consulted. 10/08 angiogram demonstrated an 80% LAD ostial lesion. As this is a high risk lesion, cardiothoracic surgery backup as needed, and three-vessel disease is noted on cath in May be transferred. Continue beta-hiral, increase metoprolol to 50 mg twice daily. He received 2 units of packed red blood cells 10/07, hemoglobin noted to be 10.5 this morning. Nitroglycerin drip and Nitro-Bid discontinued, no complaints of chest pain. On Imdur. (2) Acute blood loss as cause of postoperative anemia: (3) Status post lumbar spinal fusion: (4) Type 2 diabetes mellitus: Attestations 2 Medical Necessity Statement*: Needs continued hospital stay for close monitoring following spine surgery as well as non-ST elevation myocardial infarction with ostial 80% lesion needing further intervention. Diagnoses NSTEMI (non-ST elevated myocardial infarction) I21.4 Acute blood loss as cause of postoperative anemia D62 Status post lumbar spinal fusion Z98.1 Type 2 diabetes mellitus E11.9 Time Spent (min) 24
[2023-10-09] MEDS: aspirin 81 mg EC Tablet PO (09:53)
[2023-10-09] MEDS: finasteride 5 mg Tablet PO (09:53)
[2023-10-09] MEDS: isosorbide mononitrate ER 30 mg Tablet PO (09:53)
[2023-10-09] MEDS: gabapentin 400 mg Capsule PO ×2 (09:53→15:24)
[2023-10-09] MEDS: HYDROcodone-acetaminophen 5-325 mg Tablet PO (09:53)
[2023-10-09] MEDS: docusate sodium 100 mg Capsule PO (09:55)
[2023-10-09] MEDS: pantoprazole DR 40 mg Tablet PO (09:55)
[2023-10-09] MEDS: metoprolol tartrate 50 mg Tablet PO (10:02)
--- NOTE | 2023-10-09 10:22 | P.PN_ITS ---
Subjective 2 Subjective: Patient resting in bed at this point has no chest pain awaiting cardiology's neck step as far as his heart. Complaining of some back pain. Vitals/I&O/Wt Last Vital Signs Temp 97.6 F 10/09/23 08:00 Pulse 87 10/09/23 08:46 Resp 16 10/09/23 08:46 BP 143/69 10/09/23 08:00 Pulse Ox 97 10/09/23 08:46 O2 Del Method Room Air 10/09/23 08:46 O2 Flow Rate 2 10/07/23 22:00 10/08/23 10/09/23 10/09/23 22:59 06:59 14:59 Intake Total 600 / 855.833 120 / 120 Output Total 150 / 425 200 / 625 200 / 200 Balance -150 / -169.167 400 / 230.833 -80 / -80 Weight last 48 hrs Weight 205 lb 8 oz Weight 218 lb 9 oz Physical Exam 2 Narrative: Resting in bed moving all extremities Urinary Catheter Management: Demarco: Cath Placed During This Visit: yes, but has since been removed by the nurse Reason for Continuing Indwelling Catheter: Perioperative Use in Selected Surgeries Urinary Catheter Date of Insertion: 10/05/23 Urinary Catheter Time of Insertion: 07:45 Date Urinary Catheter Removed: 10/06/23 Time Urinary Catheter Discontinued: 10:02 Data 10/09/23 04:12 10/09/23 04:12 A&P Assessment and plan (1) Status post lumbar spinal fusion: Awaiting cardiology input Continue therapy Attestations 2 Medical Necessity Statement*: pain Coding Level of Care Code Acute Code for [facility] Diagnoses Status post lumbar spinal fusion Z98.1
--- NOTE | 2023-10-09 10:55 | PC.NURSE ---
dr lawler ordered plavix to be held due to potential for open heart surgery in near future.
--- NOTE | 2023-10-09 11:11 | P.PN_ITS ---
Subjective 2 Subjective: The patient is status post recent cardiac cath which showed 6 ostial left main with multivessel disease including obtuse marginal branch /proper left circumflex artery, moderate to severe mid to distal LAD and severe RCA disease. Status post recent back surgery with postop hemoglobin drop with subsequent non- ST elevation SC. His hemoglobin improved after transfusion. Subsequent cath showed the above finding. Currently doing well without any chest pain or shortness of breath Vitals/I&O/Wt Last Vital Signs Temp 97.6 F 10/09/23 08:00 Pulse 87 10/09/23 08:46 Resp 16 10/09/23 08:46 BP 143/69 10/09/23 08:00 Pulse Ox 97 10/09/23 08:46 O2 Del Method Room Air 10/09/23 08:46 O2 Flow Rate 2 10/07/23 22:00 10/08/23 10/09/23 10/09/23 22:59 06:59 14:59 Intake Total 600 / 855.833 120 / 120 Output Total 150 / 425 200 / 625 200 / 200 Balance -150 / -169.167 400 / 230.833 -80 / -80 Weight last 48 hrs Weight 205 lb 8 oz Weight 218 lb 9 oz Physical Exam 2 Const: COMMON NORMALS: no acute distress, patient oriented x3, no limitations, alert and well nourished HENMT: COMMON NORMALS: normocephalic, atraumatic, hearing grossly normal bilaterally and gingiva normal HEAD & SCALP: normocephalic and atraumatic Eye: COMMON NORMALS: Equal, round and reactive pupils present and EOMs intact bilaterally GENERAL EYE: appearance normal, both eyes and all related structures PUPIL: Yes Equal, round and reactive pupils present Neck/C-Spine: COMMON NORMALS: no JVD GENERAL: Yes normal visual inspection CAROTIDS: Yes normal carotid upstroke Chest: COMMONS NORMALS: normal inspection of the chest CHEST: Yes Symmetrical chest wall rise Resp: COMMON NORMALS: normal respiratory effort, No retractions, clear to auscultation bilaterally and percussion normal EFFORT & INSPECTION: Yes symmetric chest movement AUSCULTATION: clear to auscultation bilaterally P ERCUSSION: percussion normal Cardio: COMMON NORMALS: no JVD, regular rate, regular rhythm, S1 normal heart sound present, S2 normal heart sound present, No gallops present (Cardio), No clicks present (Cardio), No murmurs present (Cardio) and No rub (Cardio) R ATE: regular rate RHYTHM: regular rhythm HEART SOUNDS: S1 normal heart sound present and S2 normal heart sound present GI: COMMON NORMALS: Normal to inspection, nondistended, normoactive bowel sounds present, Soft to palpation and non-tender PALPATION: Yes Soft to palpation : COMMON NORMALS: Yes no CVA tenderness BLADDER/KIDNEY EXAM: Yes no CVA tenderness Back/Pelvis: COMMON NORMALS: no CVA tenderness Extremity: COMMON NORMALS: normal to inspection, no joint enlargement, no clubbing, cyanosis or edema and no calf tenderness Neuro: COMMON NORMALS: patient oriented x3, moves all extremities, no focal motor deficits and no sensory deficits noted SENSORIUM/ORIENTATION: Yes alert GAIT: Yes Normal gait present OTHER: He had the residual right-sided weakness due to his previous stroke about 10 years ago Psych: COMMON NORMALS: mental status grossly normal APPEARANCE: Yes grossly normal Skin: COMMON NORMALS: no rashes or lesions noted GENERAL SKIN EXAM: no rashes or lesions noted Urinary Catheter Management: Demarco: Cath Placed During This Visit: yes, but has since been removed by the nurse Reason for Continuing Indwelling Catheter: Perioperative Use in Selected Surgeries Urinary Catheter Date of Insertion: 10/05/23 Urinary Catheter Time of Insertion: 07:45 Date Urinary Catheter Removed: 10/06/23 Time Urinary Catheter Discontinued: 10:02 Data 10/09/23 04:12 10/09/23 04:12 A&P Assessment and plan (1) NSTEMI (non-ST elevated myocardial infarction): Status post recent cath with multivessel CAD including ostial left main and severe right coronary artery as well as left circumflex artery and obtuse marginal branch. Patient would be ideally served with bypass surgery. Patient might be high risk for CABG in light of his previous stroke. I discussed option with the family patient would be best served by being transferred to [place] for surgical assessment if deemed high risk for surgery consideration for high risk left main and multivessel PCI with backup surgery. Meanwhile continue medical therapy (2) Status post lumbar spinal fusion: Stable (3) Type 2 diabetes mellitus: Managed by hospitalist (4) Hyperlipidemia: Continue on statins Attestations 2 Medical Necessity Statement*: Patient will be likely transfer to [place] later on for surgical assessment in [place] Coding Level of Care Code 47468 Diagnoses NSTEMI (non-ST elevated myocardial infarction) I21.4 Status post lumbar spinal fusion Z98.1 Type 2 diabetes mellitus E11.9 Hyperlipidemia E78.5
[2023-10-09] MEDS: insulin lispro 100 unit/1 mL SUBCUT (12:17)
--- NOTE | 2023-10-09 13:40 | PM.TDS ---
Transfer Summary Providers Date of Admission: 10/05/23 12:20 Date of Discharge/Transfer: 10/09/23 Attending Provider at Admission: Gomez Britt DO Attending Provider at Transfer: Gomez Britt DO Primary Care Provider: Bill Echavarria MD Transfer Plans: Anticipated date of transfer: 10/09/23. Diagnoses at Discharge Discharge Diagnosis (1) NSTEMI (non-ST elevated myocardial infarction): Status: Acute (2) Acute blood loss as cause of postoperative anemia: Status: Acute (3) Status post lumbar spinal fusion: Status: Acute (4) Type 2 diabetes mellitus: Status: Acute Reason for Visit Reason for Visit M48.062 Hospital Course Hospital Course Eric is a 78-year-old white male who was admitted to the hospital for elective back surgery on October 05. He received a posterior fusion L2 to pelvis. He had acute blood loss anemia associated with surgery, requiring transfusion. During this time. He had a non-ST elevation myocardial infarction. He was placed on beta-hiral, Plavix, aspirin, statin. Cardiology was consulted and he underwent angiogram on October 08. 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 It was thought he might benefit from bypass surgery versus high risk intervention with cardiothoracic surgery backup. Echocardiogram was done which demonstrated preserved EF. Following transfusion hemoglobin was stable. Patient did not have recurrent chest discomfort. After discussion with family, cardiology, it was thought he could benefit from transfer to a center that has cardiothoracic surgery ability and backup. This was arranged on October 09, when I discussed with cardiology at [facility] as well as the hospitalist, Dr. Estrada. They graciously accepted the patient. Physical Exam Narrative: See exam done earlier Urinary Catheter Management: Demarco: Cath Placed During This Visit: yes, but has since been removed by the nurse Reason for Continuing Indwelling Catheter: Perioperative Use in Selected Surgeries Urinary Catheter Date of Insertion: 10/05/23 Urinary Catheter Time of Insertion: 07:45 Date Urinary Catheter Removed: 10/06/23 Time Urinary Catheter Discontinued: 10:02 TS Data Studies Completed and Pending Completed Studies During Hospitalization Category Date Time Status [employer] request for service Routine Exams 10/08/23 08:53 Completed XR lumbar spine 2-3V* [id number] Routine Exams 10/05/23 Completed CV echo complete* [id number] Routine Ultrasound 10/07/23 06:00 Completed Laboratory Last Values WBC 7.81 10^3/uL (3.29-11.43) 10/09/23 04:12 RBC 3.46 10^6/uL (3.85-5.65) L 10/09/23 04:12 Hgb 10.50 g/dL (11.27-16.99) L 10/09/23 04:12 Hct 32.0 % (37-53) L 10/09/23 04:12 MCV 92.5 fl (82-101) 10/09/23 04:12 MCH 30.3 pg (27-33) 10/09/23 04:12 MCHC 32.8 g/dL (30-55) 10/09/23 04:12 RDW 15.1 % (12.1-15.1) 10/09/23 04:12 Plt Count 198 10^3/cmm (157-399) 10/09/23 04:12 MPV 9.4 fL (7.4-10.4) 10/09/23 04:12 Neut % (Auto) 64.1 % 10/09/23 04:12 Lymph % (Auto) 19.8 % 10/09/23 04:12 [place] % (Auto) 12.4 % 10/09/23 04:12 Eos % (Auto) 2.9 % 10/09/23 04:12 Baso % (Auto) 0.3 % 10/09/23 04:12 Neut # (Auto) 5.00 10^3/uL (1.8-7.7) 10/09/23 04:12 Lymph # (Auto) 1.6 10^3/uL (0.8-4.8) 10/09/23 04:12 [place] # (Auto) 1.0 10^3/uL (0.2-0.9) H 10/09/23 04:12 Eos # (Auto) 0.2 10^3/uL (0.0-0.8) 10/09/23 04:12 Baso # (Auto) 0.0 10^3/uL (0.0-0.1) 10/09/23 04:12 Nucleated RBC % (auto) 0 % 10/09/23 04:12 Nucleated RBCs # 0.0 /100WBC 10/09/23 04:12 D-Dimer 0.90 ug/mLFEU (0-0.59) H 10/07/23 01:58 Sodium 138 mmol/L (136-145) 10/09/23 04:12 Potassium 4.5 mmol/L (3.5-5.1) 10/09/23 04:12 Chloride 104 mmol/L (98-107) 10/09/23 04:12 Carbon Dioxide 23 mmol/L (22-29) 10/09/23 04:12 Anion Gap 15.5 (5-19) 10/09/23 04:12 BUN 22 mg/dL (8-23) 10/09/23 04:12 Creatinine 1.1 mg/dL (0.7-1.2) 10/09/23 04:12 GFR Calculation Not Reportable 10/09/23 04:12 Glucose 134 mg/dL (65-115) H 10/09/23 04:12 POC Glucose 133 mg/dL (70-110) H 10/09/23 06:26 Calculated Osmolality 291 mOsm/kg (285-295) 10/09/23 04:12 Calcium 8.7 mg/dL (8.5-10.5) 10/09/23 04:12 Magnesium 2.2 mg/dL (1.7-2.3) 10/08/23 03:20 Total Bilirubin 0.7 mg/dL (0.15-1.2) 10/08/23 03:20 AST 25 U/L (0-40) 10/08/23 03:20 ALT 14 U/L (0-41) 10/08/23 03:20 Alkaline Phosphatase 49 U/L (40-130) 10/08/23 03:20 Troponin T Baseline 196 ng/L (0-15) H* 10/07/23 01:58 Troponin T 120 Minute 204.2 ng/L (0-15) H 10/07/23 04:43 Delta Troponin T 8.2 ABS# (0-10) 10/07/23 04:43 Troponin T Hi Sens 6Hr 184.5 ng/L (0-15) H 10/07/23 07:41 Troponin T Hi Sens 6Hr Delta -11.5 ng/L (0-12) L 10/07/23 07:41 Total Protein 6.0 g/dL (6.6-8.7) L 10/08/23 03:20 Albumin 3.5 g/dL (3.5-5.2) 10/08/23 03:20 Globulin 2.5 g/dL (1.3-4.6) 10/08/23 03:20 Blood Type O Positive 10/05/23 06:35 Rho(D) Type Rh positive 10/05/23 06:35 Antibody Screen Negative 10/05/23 06:35 Crossmatch See Detail 10/05/23 06:35 Recent Clincial Data Last Vital Signs Temp 97.8 F 10/09/23 11:29 Pulse 81 10/09/23 11:29 Resp 16 10/09/23 11:29 BP 123/67 10/09/23 11:29 Pulse Ox 99 10/09/23 11:29 O2 Del Method Room Air 10/09/23 11:29 O2 Flow Rate 2 10/07/23 22:00 Vital Signs Temp Pulse Resp BP Pulse Ox O2 Del Method 10/09/23 11:29 97.8 F 81 16 123/67 99 Room Air 10/09/23 08:46 87 16 97 Room Air 10/09/23 08:00 97.6 F 72 18 143/69 10/09/23 05:50 78 177/81 10/09/23 05:24 71 10/09/23 04:00 99.8 F H 77 24 H 177/81 94 Room Air Intake & Output/Weight 10/07/23 10/08/23 10/09/23 10/10/23 06:59 06:59 06:59 06:59 Intake Total 3730 / 3730 1850 / 1850 855.833 / 855.833 120 / 120 Output Total 905 / 905 1725 / 1725 625 / 625 200 / 200 Balance 2825 / 2825 125 / 125 230.833 / 230.833 -80 / -80 Weight 99.138 kg 99.138 kg 93.213 kg Vitals Last Vital Signs Temp 97.8 F 10/09/23 11:29 Pulse 81 10/09/23 11:29 Resp 16 10/09/23 11:29 BP 123/67 10/09/23 11:29 Pulse Ox 99 10/09/23 11:29 O2 Del Method Room Air 10/09/23 11:29 O2 Flow Rate 2 10/07/23 22:00 TS Medications Medications Acetaminophen (Acetaminophen 325 Mg Tablet) 650 mg PO Q4H PRN PRN Reason: Mild Pain or fever >101.5 Hydrocodone Bitart/Acetaminophen (Hydrocodone-Acetaminophen 5-325 Mg Tablet) 1 - 2 tab PO Q4H PRN PRN Reason: MODERATE TO SEVERE PAIN Last Admin: 10/09/23 09:53 Dose: 2 tab Al Hydrox/Mg Hydrox/Simethicone (Feec-Tqr-Qkmgdztvp-Anil 30 Ml Udc) 30 ml PO Q4H PRN PRN Reason: INDIGESTION Last Admin: 10/06/23 23:24 Dose: 30 ml Aspirin (Aspirin 81 Mg Ec Tablet) 81 mg PO DAILY COUNTS INCLUDE 234 BEDS AT THE [facility] Last Admin: 10/09/23 09:53 Dose: 81 mg Atorvastatin Calcium (Atorvastatin 40 Mg Tablet) 40 mg PO BEDTIME COUNTS INCLUDE 234 BEDS AT THE [facility] Last Admin: 10/08/23 21:04 Dose: Not Given Dextrose (Dextrose 50% Syringe 50 Ml) 25 ml IVP ONCE PRN; Protocol PRN Reason: hypoglycemia protocol Dextrose (Dextrose 50% Syringe 50 Ml) 50 ml IVP PRN PRN; Protocol PRN Reason: hypoglycemia protocol Docusate Sodium (Docusate Sodium 100 Mg Capsule) 100 mg PO BID COUNTS INCLUDE 234 BEDS AT THE [facility] Last Admin: 10/09/23 09:55 Dose: 100 mg Enoxaparin Sodium (Enoxaparin 40 Mg/0.4 Ml Syringe) 40 mg SUBCUT Q24H COUNTS INCLUDE 234 BEDS AT THE [facility] Last Admin: 10/08/23 20:59 Dose: 40 mg Finasteride (Finasteride 5 Mg Tablet) 5 mg PO DAILY COUNTS INCLUDE 234 BEDS AT THE [facility] Last Admin: 10/09/23 09:53 Dose: 5 mg Gabapentin (Gabapentin 400 Mg Capsule) 400 mg PO TID COUNTS INCLUDE 234 BEDS AT THE [facility] Last Admin: 10/09/23 09:53 Dose: 400 mg Dextrose (D5w) 500 mls @ 0 mls/hr IV ONCE PRN; Protocol PRN Reason: Adult Acute Hypoglycemia Prot Insulin Human Lispro (Insulin Lispro 100 Unit/1 Ml) 0 unit SUBCUT TIDWM COUNTS INCLUDE 234 BEDS AT THE [facility]; Protocol Last Admin: 10/09/23 12:17 Dose: 8 unit Isosorbide Mononitrate (Isosorbide Mononitrate Er 30 Mg Tablet) 30 mg PO DAILY COUNTS INCLUDE 234 BEDS AT THE [facility] Last Admin: 10/09/23 09:53 Dose: 30 mg Lorazepam (Lorazepam 2 Mg/Ml Inj 1 Ml) 0.5 mg IVP Q6H PRN PRN Reason: ANXIETY Last Admin: 10/07/23 15:39 Dose: 0.5 mg Magnesium Hydroxide (Magnesium Hydroxide 30 Ml Udc) 30 ml PO Q4H PRN PRN Reason: Constipation/indigestion Metoprolol Tartrate (Metoprolol Tartrate 50 Mg Tablet) 50 mg PO BID@0900,2100 COUNTS INCLUDE 234 BEDS AT THE [facility] Last Admin: 10/09/23 10:02 Dose: 50 mg Morphine Sulfate (Morphine 4 Mg/Ml Sdv 1 Ml) 2 mg IVP Q1H PRN PRN Reason: SEVERE PAIN Nitroglycerin (Nitroglycerin 0.4 Mg Sublingual Tablet) 0.4 mg SUBLINGUAL Q5M PRN PRN Reason: CHEST PAIN Ondansetron HCl (Ondansetron 2 Mg/Ml Sdv 2 Ml) 4 mg IVP Q6H PRN PRN Reason: NAUSEA AND VOMITING Last Admin: 10/08/23 06:49 Dose: 4 mg Pantoprazole Sodium (Pantoprazole Dr 40 Mg Tablet) 40 mg PO DAILY COUNTS INCLUDE 234 BEDS AT THE [facility] Last Admin: 10/09/23 09:55 Dose: 40 mg Discontinued Medications Albuterol Sulfate (Albuterol 2.5 Mg/3 Ml Neb) 2.5 mg INHALATION ONCE PRN PRN Reason: WHEEZING Aspirin (Aspirin 325 Mg Tablet) 325 mg PO ONCE ONE Stop: 10/07/23 02:45 Last Admin: 10/07/23 02:56 Dose: 325 mg Aspirin (Aspirin 81 Mg Ec Tablet) 81 mg PO DAILY COUNTS INCLUDE 234 BEDS AT THE [facility] Aspirin (Aspirin 325 Mg Tablet) 325 mg PO ONCE ONE Stop: 10/08/23 08:45 Last Admin: 10/08/23 09:53 Dose: Not Given Atorvastatin Calcium (Atorvastatin 40 Mg Tablet) 20 mg PO DAILY COUNTS INCLUDE 234 BEDS AT THE [facility] Last Admin: 10/06/23 09:36 Dose: Not Given Atorvastatin Calcium (Atorvastatin 40 Mg Tablet) 80 mg PO DAILY COUNTS INCLUDE 234 BEDS AT THE [facility] Benzocaine (Cetylpyridinium Lozenge) 1 each MUCOUS MEM ONCE PRN PRN Reason: SORE THROAT Clopidogrel Bisulfate (Clopidogrel 300 Mg Tablet) 300 mg PO ONCE ONE Stop: 10/07/23 02:46 Last Admin: 10/07/23 02:56 Dose: 300 mg Clopidogrel Bisulfate (Clopidogrel 75 Mg Tablet) 75 mg PO DAILY COUNTS INCLUDE 234 BEDS AT THE [facility] Clopidogrel Bisulfate (Clopidogrel 75 Mg Tablet) 75 mg PO DAILY COUNTS INCLUDE 234 BEDS AT THE [facility] Last Admin: 10/09/23 10:54 Dose: Not Given Dexamethasone (Dexamethasone 4 Mg/Ml Inj) Confirm Administered Dose 8 mg .ROUTE .STK-MED ONE Stop: 10/05/23 08:19 Diphenhydramine HCl (Diphenhydramine 50 Mg/Ml Sdv 1ml) 12.5 mg IVP ONCE PRN PRN Reason: PONV Diphenhydramine HCl (Diphenhydramine 50 Mg/Ml Sdv 1ml) 12.5 mg IVP ONCE PRN PRN Reason: Postop N/V Diphenhydramine HCl (Diphenhydramine 50 Mg Capsule) 50 mg PO ONCE ONE Stop: 10/08/23 08:45 Last Admin: 10/08/23 09:47 Dose: 50 mg Enoxaparin Sodium (Enoxaparin 100 Mg/Ml Syringe) 150 mg SUBCUT ONCE ONE Stop: 10/07/23 02:43 Last Admin: 10/07/23 02:56 Dose: 150 mg Enoxaparin Sodium (Enoxaparin 100 Mg/Ml Syringe) 90 mg 1 mg/kg (90 mg) SUBCUT Q12H COUNTS INCLUDE 234 BEDS AT THE [facility] Ephedrine Sulfate (Ephedrine 50 Mg/Ml Inj) Confirm Administered Dose 50 mg .ROUTE .STK-MED ONE Stop: 10/05/23 09:43 Famotidine (Famotidine 20 Mg/2 Ml Inj) 20 mg IVP ONCE PRN PRN Reason: HEARTBURN Fentanyl (Fentanyl 50 Mcg/Ml Inj 2ml) 50 mcg IVP ONCE PRN PRN Reason: Preop Pain Fentanyl (Fentanyl 50 Mcg/Ml Inj 2ml) Confirm Administered Dose 100 mcg .ROUTE .STK-MED ONE Stop: 10/05/23 08:24 Fentanyl (Fentanyl 50 Mcg/Ml Inj 2ml) Confirm Administered Dose 100 mcg .ROUTE .STK-MED ONE Stop: 10/05/23 11:52 Fentanyl (Fentanyl 50 Mcg/Ml Inj 2ml) 100 mcg IVP ONCE PRN PRN Reason: Pain level 1-5 PACU Phase I Stop: 10/06/23 12:31 Fentanyl (Fentanyl 50 Mcg/Ml Inj 2ml) 50 mcg IVP Q5M PRN PRN Reason: Pain level 1-5 PACU Phase I Stop: 10/06/23 12:31 Fentanyl (Fentanyl 50 Mcg/Ml Inj 2ml) Confirm Administered Dose 100 mcg .ROUTE .STK-MED ONE Stop: 10/08/23 09:08 Furosemide (Furosemide 10 Mg/Ml Sdv 4ml) 40 mg IVP ONCE ONE Stop: 10/07/23 08:57 Last Admin: 10/07/23 09:17 Dose: 40 mg Gabapentin (Gabapentin 300 Mg Capsule) 400 mg PO TID FRANCISCO Last Admin: 10/05/23 16:23 Dose: Not Given Glycopyrrolate (Glycopyrrolate 0.2 Mg/Ml Sdv 2 Ml) Confirm Administered Dose 0.4 mg .ROUTE .STK-MED ONE Stop: 10/05/23 09:43 Glycopyrrolate (Glycopyrrolate 0.2 Mg/Ml Sdv 2 Ml) Confirm Administered Dose 0.4 mg .ROUTE .STK-MED ONE Stop: 10/05/23 12:35 Heparin Sodium (Porcine) (Heparin, Porcine 1,000 Unit/Ml Inj 10 Ml) 10,000 unit IRRIGATION ONCE ONE Stop: 10/05/23 08:18 Last Admin: 10/05/23 08:18 Dose: 10,000 unit Heparin Sodium (Porcine) (Heparin 5,000 Unit/Ml Inj 1 Ml) Confirm Administered Dose 5,000 unit .ROUTE .STK-MED ONE Stop: 10/08/23 09:08 Hydralazine HCl (Hydralazine 20 Mg/Ml Inj 1 Ml) 5 mg IVP ONCE ONE Stop: 10/05/23 06:51 Last Admin: 10/05/23 07:03 Dose: 5 mg Hydralazine HCl (Hydralazine 20 Mg/Ml Inj 1 Ml) Confirm Administered Dose 20 mg .ROUTE .STK-MED ONE Stop: 10/05/23 07:02 Last Admin: 10/05/23 16:22 Dose: Not Given Hydromorphone HCl (Hydromorphone 1 Mg/Ml Inj 1 Ml) Confirm Administered Dose 1 mg .ROUTE .STK-MED ONE Stop: 10/05/23 10:39 Hydromorphone HCl (Hydromorphone 1 Mg/Ml Inj 1 Ml) Confirm Administered Dose 1 mg .ROUTE .STK-MED ONE Stop: 10/05/23 12:30 Last Admin: 10/05/23 12:32 Dose: 1 mg Hydromorphone HCl (Hydromorphone 1 Mg/Ml Inj 1 Ml) 0.5 mg IVP Q10M PRN PRN Reason: Pain level 6-10 PACU Phase I Stop: 10/06/23 12:31 Sodium Chloride (Sodium Chloride 0.9%) 1,000 mls @ 30 mls/hr IV .Q24H [place] Stop: 10/06/23 05:59 Last Infusion: 10/05/23 10:36 Dose: Infused Vancomycin HCl 1,000 mg/ (Sodium Chloride) 250 mls @ 250 mls/hr IV ONCE ONE; Protocol Stop: 10/05/23 06:52 Last Infusion: 10/05/23 08:40 Dose: Infused Lidocaine HCl (Xylocaine) Confirm Administered Dose 5 mls @ as directed .ROUTE .STK-MED ONE Stop: 10/05/23 08:20 Albumin Human (Albumin) Confirm Administered Dose 12.5 gm in 250 mls @ as directed .ROUTE .STK-MED ONE Stop: 10/05/23 06:27 Acetaminophen (Acetaminophen) Confirm Administered Dose 1,000 mg in 100 mls @ as directed .ROUTE .ST-MED ONE Stop: 10/05/23 06:27 Propofol (Diprivan) Confirm Administered Dose 1,000 mg in 100 mls @ as directed .ROUTE .STK-MED ONE Stop: 10/05/23 06:27 Heparin Sodium (Porcine) (Heparin, Porcine) Confirm Administered Dose 10 mls @ as directed .ROUTE .STK-MED ONE Stop: 10/05/23 06:49 Propofol (Diprivan) Confirm Administered Dose 1,000 mg in 100 mls @ as directed .ROUTE .STK-MED ONE Stop: 10/05/23 09:04 Lactated Ringer's (Lactated Ringers) 1,000 mls @ 90 mls/hr IV .Q11H7M [place] Last Infusion: 10/07/23 19:00 Dose: Infused Vancomycin HCl 1,000 mg/ (Sodium Chloride) 250 mls @ 250 mls/hr IV Q12H FRANCISCO; Protocol Stop: 10/06/23 07:59 Last Infusion: 10/06/23 07:10 Dose: Infused Sodium Chloride (Sodium Chloride 0.9%) 1,000 mls @ 100 mls/hr IV .Q10H [place] Stop: 10/06/23 12:44 Last Infusion: 10/06/23 09:23 Dose: Infused Nitroglycerin/Dextrose (Nitroglycerin Drip) 50 mg in 250 mls @ 0 mls/hr IV .Q0M COUNTS INCLUDE 234 BEDS AT THE [facility]; Protocol Sodium Chloride (Sodium Chloride 0.9%) 1,000 mls @ 50 mls/hr IV .Q20H ONE Stop: 10/09/23 04:43 Last Infusion: 10/08/23 10:30 Dose: 0 mls/hr Lidocaine HCl (Xylocaine) Confirm Administered Dose 1 mls @ as directed .ROUTE .STK-MED ONE Stop: 10/08/23 09:09 Ipratropium Bath (Ipratropium 0.5 Mg/2.5 Ml Neb) 0.5 mg INHALATION ONCE PRN PRN Reason: WHEEZING Ketorolac Tromethamine (Ketorolac 30 Mg/Ml Inj) 30 mg IVP Q6H PRN PRN Reason: BREAKTHROUGH PAIN Last Admin: 10/06/23 11:24 Dose: 30 mg Lidocaine/Epinephrine (Lidocaine-Epi 1% 20 Ml Inj) Confirm Administered Dose 20 ml .ROUTE .STCREOpoint-MED ONE Stop: 10/05/23 06:49 Lidocaine/Epinephrine (Lidocaine-Epi 1% 20 Ml Inj) 20 ml INJECTION ONCE ONE Stop: 10/05/23 08:18 Last Admin: 10/05/23 08:19 Dose: 10 ml Meperidine HCl (Meperidine 50 Mg/Ml Inj) 12.5 mg IVP ONCE PRN PRN Reason: Shivering PACU Phase I Metformin HCl (Metformin 500 Mg Tablet) 500 mg PO BID COUNTS INCLUDE 234 BEDS AT THE [facility] Last Admin: 10/06/23 18:01 Dose: 500 mg Methadone HCl (Methadone 10 Mg Tablet) 10 mg PO ONCE ONE Stop: 10/05/23 05:49 Last Admin: 10/05/23 16:23 Dose: Not Given Metoprolol Succinate (Metoprolol Succinate Er (24 Hr) 25 Mg Tablet) 25 mg PO DAILY COUNTS INCLUDE 234 BEDS AT THE [facility] Metoprolol Tartrate (Metoprolol Tartrate 25 Mg Tablet) 25 mg PO BID@0900,2100 COUNTS INCLUDE 234 BEDS AT THE [facility] Last Admin: 10/08/23 21:00 Dose: 25 mg Midazolam HCl (Midazolam 1 Mg/Ml Inj 2 Ml) 2 mg IVP ONCE PRN PRN Reason: Preop Anxiety Midazolam HCl (Midazolam 1 Mg/Ml Inj 2 Ml) Confirm Administered Dose 2 mg .ROUTE .STK-MED ONE Stop: 10/08/23 09:07 Morphine Sulfate (Morphine 4 Mg/Ml Sdv 1 Ml) 2 mg IVP Q1H PRN PRN Reason: SEVERE PAIN Last Admin: 10/08/23 01:43 Dose: 2 mg Neostigmine Methylsulfate (Neostigmine 1 Mg/Ml Sdv 10 Ml) Confirm Administered Dose 10 mg .ROUTE .STK-MED ONE Stop: 10/05/23 12:09 Nitroglycerin (Nitroglycerin 1 Gm/Inch Oint Pkt) 0.5 inch TOPICAL Q6H COUNTS INCLUDE 234 BEDS AT THE [facility] Last Admin: 10/08/23 03:25 Dose: 0.5 inch Nitroglycerin (Nitroglycerin 5 Mg/Ml Sdv 10 Ml) Confirm Administered Dose 50 mg .ROUTE .STK-MED ONE Stop: 10/08/23 09:07 Nitroglycerin (Nitroglycerin 1 Gm/Inch Oint Pkt) 0.5 inch TOPICAL Q6H COUNTS INCLUDE 234 BEDS AT THE [facility] Last Admin: 10/09/23 05:50 Dose: 0.5 inch Ondansetron HCl (Ondansetron 2 Mg/Ml Sdv 2 Ml) 4 mg IVP ONCE PRN PRN Reason: NAUSEA AND VOMITING Ondansetron HCl (Ondansetron 2 Mg/Ml Sdv 2 Ml) Confirm Administered Dose 4 mg .ROUTE .STK-MED ONE Stop: 10/05/23 08:19 Ondansetron HCl (Ondansetron 2 Mg/Ml Sdv 2 Ml) 4 mg IVP ONCE PRN PRN Reason: Nausea PACU Phase I Ondansetron HCl (Ondansetron 2 Mg/Ml Sdv 2 Ml) 4 mg IVP ONCE PRN PRN Reason: Nausea/Vomiting PACU PHASE II Phenylephrine HCl (Phenylephrine 10 Mg/Ml Sdv 1 Ml) Confirm Administered Dose 10 mg .ROUTE .STK-MED ONE Stop: 10/05/23 08:26 Propofol (Propofol 10 Mg/Ml Sdv 20 Ml) Confirm Administered Dose 200 mg .ROUTE .STK-MED ONE Stop: 10/05/23 08:20 Rocuronium Bath (Rocuronium 10 Mg/Ml Inj 5ml) Confirm Administered Dose 50 mg .ROUTE .STK-MED ONE Stop: 10/05/23 06:28 Scopolamine (Scopolamine 1.5 Patch) 1 patch TRANSDERMA ONCE PRN PRN Reason: Nausea/ Vomiting Prophylaxis Sodium Chloride (Sodium Chloride 0.9% 100 Ml Bag) 50 ml IV PRN PRN PRN Reason: Blood transfusion prime and flush Stop: 10/08/23 07:05 Sodium Chloride (Sodium Chloride 0.9% 100 Ml Bag) 50 ml IV PRN PRN PRN Reason: Blood transfusion prime and flush Stop: 10/08/23 08:19 Succinylcholine Chloride (Succinylcholine 20 Mg/Ml Sdv 10ml) Confirm Administered Dose 200 mg .ROUTE .STK-MED ONE Stop: 10/05/23 08:36 Thrombin (Thrombin 5,000 Unit Sdv) Confirm Administered Dose 5,000 unit .ROUTE .STK-MED ONE Stop: 10/05/23 06:49 Thrombin (Thrombin 5,000 Unit Sdv) 5,000 unit XX ONCE ONE Stop: 10/05/23 08:18 Last Admin: 10/05/23 08:18 Dose: 5,000 unit Vancomycin HCl (Vancomycin 1,000 Mg Sdv) Confirm Administered Dose 1,000 mg .ROUTE .STK-MED ONE Stop: 10/05/23 08:21 Vancomycin HCl (Vancomycin 1,000 Mg Sdv) 1,000 mg XX ONCE ONE; Protocol Stop: 10/05/23 09:24 Last Admin: 10/05/23 09:24 Dose: 1,000 mg Allergies Penicillins Allergy (Verified 09/22/23 10:43) ADR-Gastrointestinal Upset Cramps in stomach tramadol Allergy (Verified 09/22/23 10:43) itching Home Medications clopidogrel 75 mg tablet 75 mg PO DAILY 09/05/22 [History Confirmed 09/22/23] finasteride 5 mg tablet 5 mg PO DAILY 09/05/22 [History Confirmed 09/22/23] metformin 500 mg tablet 500 mg PO BID 09/05/22 [History Confirmed 09/22/23] pravastatin 40 mg tablet 40 mg PO DAILY 09/05/22 [History Confirmed 09/22/23] gabapentin 300 mg capsule 400 mg PO TID 09/11/23 [History Confirmed 09/22/23] oxycodone-acetaminophen 10 mg-325 mg tablet 1 tab PO Q4H PRN pain 7 days #42 tabs 10/07/23 [Rx] Discharge Plan Discharge Patient Disposition: Home Condition: Stable Prescriptions: New oxycodone-acetaminophen 10-325 mg tablet 1 tab PO Q4H PRN (Reason: pain) 7 Days Qty: 42 0RF Continued finasteride 5 mg tablet 5 mg PO DAILY metformin 500 mg tablet 500 mg PO BID clopidogrel 75 mg tablet 75 mg PO DAILY pravastatin 40 mg tablet 40 mg PO DAILY gabapentin 300 mg capsule 400 mg PO TID Discharge Orders: Discharge Order (Routine); Ordered 10/09/23 Ordered By: Gomez Britt Referrals: Sue Gustafson FNP [Nurse Practitioner] - 10/15/23 10:00 am Discharge Diet: Advance as tolerated Discharge Activity: Limit activity as instructed Patient Instructions: Oxycodone/Acetaminophen (By mouth) (Percocet, Roxicet), Heart Attack (DC), Heart Healthy Diet (DC), Lumbar Spinal Fusion (DC), Coronary Angioplasty (DC), Opioid Safety, Post Angiogram Home Care Instructions, Post Heart Attack Stoplight Activity Restrictions/Additional Instructions: Thank you for [facility] for your care! The following is a list of instructions, from your provider, to follow upon your discharge to ensure you have the optimal recovery from your recent injury orsurgery. Follow-up care is a moreland part of your treatment and safety. Be sure to make and go to all appointments, and call your doctor if you are having problems. If you do not already have a follow-up appointment made, call Dr. Britt office in the next 1-3 days to make follow up appointment for 1 weeks at [phone]. It is also a good idea to know your test results and keep a list of the medicines you take. Medications will be prescribed for you at your provider's discretion. These medications are to be used as instructed; if they are taken more often that prescribed they will not be refilled early and in most cases will not be refilled at all. > When a refill is needed,you should contact [facility] 2-3 business days before your prescription runs out. Medications will NOT be refilled by patient transition specialist providers after hours! > Many pain medications contain Tylenol (Acetaminophen). Do not consume more than 4,000 mg of Tylenol per day in total with any combination ofmedications. > Pain medications can cause constipation. Please use an over the counter stool softener as directed, while taking pain medications. Consulty our local pharmacist with questions or recommendations on stool softeners. If constipation persists, contact our office or your primary care provider. > While under our care,you are not to receive pain medications or other controlled substances from any other provider unless our office is notified and approves. Any attempts to do so will result in refusal to prescribe any further pain medications and possible dismissal from our practice. ? Your wound and/or dressing should remain clean and dry for 7 days after surgery. On postoperative day 7 (48 hours after your surgery) the dressing (if present) should be removed and it is okay to shower and get the incision wet. Pad dry afterwards. No further dressing should be required from that point on. Do not put any creams or ointments on theincision > It is normal for there to be a small amount of discharge (bloody or blood tinged) present from a surgical wound for the first 1-3days. > The wound should be examined twice a day for signs of infection. Mild redness or bruising is to be expected but indications that an infection maybe starting would include; An increase in redness, swelling, or discharge, a foul odor present around the incision, and/or a fever greater than 101 ?F ? Showering is permitted, however we ask that you do not take a bath, sit in a whirlpool / Jacuzzi, or go swimming for 1 month. For only the first 2 days after surgery, lt wilt be necessary for you to cover your wound/dressing with plastic and tape to keep it dry. ? Walking is essential for the healing process after surgery. We would like you to slowly advance your walking. This should be done on relatively flat clear ground (inside or out) or can be done on a treadmill. Remember this goal does not have to happen all at once, slowly increase your distance and duration. This can be broken into more more than one walk per day as tolerated. Patients who walk as directed after surgery rarely require Physical Therapy. In the unlikely event this issue arises your provider will direct hospital staff to make the appropriate arrangements. ? No lifting over 5 pounds {a gallon of milk) or bending/twisting until further notice. Each of these activities places an unnecessary amount of stress onto the body and can impede the delicate healing process. > Instead of bending at the waist, keep your back straight and bend at the knees. > Instead of twisting your torso, keep your back straight and turn your entire body with your feet. ? You may sleep in any position which makes you comfortable. Many patients find comfort sleeping in a reclining chair. It is not abnormal to have difficulty sleeping for the first several weeks following your surgery. We recommend trying Benadry! or Tylenol PM as directed to help with your sleeping difficulties. Both medications are over the counter and available withoutprescription. ? NO SMOKING!!! Smoking dramatically increases the probability of developing postoperative wound infections. ? Common complaints after lumbar and/or thoracic spine surgery include, but are not limited to: numbness and/or tingling in the legs, pain around the incision and surrounding tissues, muscle spasms, or stiffness of the middle to low back. Contact our office if these symptoms persist or if an acute change occurs. ? No driving for the first 3-5days, and not while taking narcotics until seen at your follow-up appointment and cleared. There are no restrictions for riding on short trips, however if you take a longer trip, arrangements should be made to make regular stops to get out of the vehicle and stretch . ? Swelling is an unfortunate event that will take place with any surgery and is the primary source of your postoperative discomfort. While walking and regular approved activities helps control inflammation, there are additional steps you can take to minimizeswelling. > Place ice over the surgical site and surrounding tissue for twenty minutes, followed by applying a low/medium heat (heating pad) for an additional twenty minutes every 1-2 hours as needed for painrelief. > You may use of over the counter anti-inflammatory medications (Ibuprofen, Motrin, Aleve, Advil, etc) as directed on the package label. These types of medicines wm significantly reduce the amount of discomfort you experience after surgery from swelling. It should be noted that if you have and allergy to any of these medications, or a history of ulcers or kidney disease you should consult you primary care provider prior to starting these medications. Transfer Attestations Time Spent in Transfer Care: greater than 30 min Quality Metrics Clinical Quality Measures [ Acute Myocardial Infaction { Clinical Trial Participant: No; Contraindication to aspirin: None; Aspirin prescribed; Contraindication to statin: None; Statin prescribed;}] Coding Level of Care Code 24542 Total time (in minutes) for Discharge: 34 Diagnoses NSTEMI (non-ST elevated myocardial infarction) I21.4 Acute blood loss as cause of postoperative anemia D62 Status post lumbar spinal fusion Z98.1 Type 2 diabetes mellitus E11.9
--- NOTE | 2023-10-09 17:21 | PC.NURSE ---
report phoned to [facility] picked up pt at 1550 for transport by ambulance.
== END 2023-10-09 15:50 | disposition short-term general hospital (02) | DRG 453 ==
LOC: MEDSURG 10-06 09:14 → ICU 10-07 13:39 → CSU 10-08 22:28
PROVIDERS: Internal Medicine; Internal Medicine Cardiovascular Disease; Admitting Provider Orthopaedic Surgery; PCP Family Medicine Adult Medicine; Visit Provider Orthopaedic Surgery
PROC: 0SG107J Fusion of 2 or more Lumbar Vertebral Joints with Autologous Tissue Substitute, Posterior Approach, Anterior Column, Open Approach (ICD-10-PCS; principal; 2023-10-05 07:00)
PROC: 0SG107J Fusion of 2 or more Lumbar Vertebral Joints with Autologous Tissue Substitute, Posterior Approach, Anterior Column, Open Approach (ICD-10-PCS; CPT 63005; 2023-10-05 07:00)
PROC: 0SG107J Fusion of 2 or more Lumbar Vertebral Joints with Autologous Tissue Substitute, Posterior Approach, Anterior Column, Open Approach (ICD-10-PCS; CPT 27280; 2023-10-05 07:00)
PROC: B2111ZZ Fluoroscopy of Multiple Coronary Arteries using Low Osmolar Contrast (ICD-10-PCS; principal; 2023-10-08 10:00)
DX: M48.062 Spinal stenosis, lumbar region with neurogenic claudication (principal); I21.4 Non-ST elevation (NSTEMI) myocardial infarction; D62 Acute posthemorrhagic anemia; E11.22 Type 2 diabetes mellitus with diabetic chronic kidney disease; N18.9 Chronic kidney disease, unspecified; E11.40 Type 2 diabetes mellitus with diabetic neuropathy, unspecified; Z79.02 Long term (current) use of antithrombotics/antiplatelets; Z79.84 Long term (current) use of oral hypoglycemic drugs; N40.0 Benign prostatic hyperplasia without lower urinary tract symptoms; Z86.73 Personal history of transient ischemic attack (TIA), and cerebral infarction without residual deficits; E78.5 Hyperlipidemia, unspecified; Z87.891 Personal history of nicotine dependence; Z88.0 Allergy status to penicillin; I25.10 Atherosclerotic heart disease of native coronary artery without angina pectoris
CPT/HCPCS: 36415; 36416; 36430; 51702; 72100; 76000; 80048; 80053; 82962; 83735; 84484; 85014; 85018; 85025; 85378; 86850; 86900; 86920; 93005; 93010; 93306; 93454; 96372; 96376; 97110; 97116; 97161; 97530; 99152; 99153; C1713; C1769; C1887; C1894; J0131; J0330; J0360; J1100; J1170; J1644; J1650; J1815; J1885; J1940; J2060; J2250; J2270; J2371; J2405; J2704; J2710; J3010; J3370; J3490; J7030; J7050; J7120; P9016; P9045; Q0163; Q9967

== ENCOUNTER → 2023-10-15 09:42 | Outpatient (BNVA) | payer MEDICARE, SELFPAY | PROVIDERS: PCP Family Medicine Adult Medicine; Visit Provider Nurse Practitioner Family | DX: I25.10 Atherosclerotic heart disease of native coronary artery without angina pectoris (principal); Z87.891 Personal history of nicotine dependence | CPT/HCPCS: 36415; 80048; 99214 ==

== ENCOUNTER → 2023-10-21 11:41 | Outpatient (BNVA) | payer MEDICARE, SELFPAY | PROVIDERS: PCP Family Medicine Adult Medicine; Visit Provider Physician Assistant | DX: Z47.89 Encounter for other orthopedic aftercare (principal); Z98.1 Arthrodesis status | CPT/HCPCS: 72100; 99024 ==

== ENCOUNTER → 2023-12-14 12:09 | Outpatient (BNVA) | payer MEDICARE, SELFPAY | PROVIDERS: PCP Family Medicine Adult Medicine; Visit Provider Internal Medicine | DX: I25.10 Atherosclerotic heart disease of native coronary artery without angina pectoris (principal); Z95.1 Presence of aortocoronary bypass graft; I12.9 Hypertensive chronic kidney disease with stage 1 through stage 4 chronic kidney disease, or unspecified chronic kidney disease; E11.22 Type 2 diabetes mellitus with diabetic chronic kidney disease; N18.2 Chronic kidney disease, stage 2 (mild); Z87.891 Personal history of nicotine dependence; Z79.84 Long term (current) use of oral hypoglycemic drugs; Z86.79 Personal history of other diseases of the circulatory system; E78.5 Hyperlipidemia, unspecified | CPT/HCPCS: 99214 ==

== ENCOUNTER → 2024-01-12 10:23 | Outpatient (BNVA) | payer MEDICARE, SELFPAY | PROVIDERS: PCP Family Medicine Adult Medicine; Visit Provider Nurse Practitioner Family | DX: Z86.79 Personal history of other diseases of the circulatory system (principal); I25.10 Atherosclerotic heart disease of native coronary artery without angina pectoris; R00.1 Bradycardia, unspecified; I12.9 Hypertensive chronic kidney disease with stage 1 through stage 4 chronic kidney disease, or unspecified chronic kidney disease; Z87.891 Personal history of nicotine dependence; R94.31 Abnormal electrocardiogram [ECG] [EKG] | CPT/HCPCS: 93005; 99214 ==

== ENCOUNTER → 2024-02-08 10:30 | Outpatient (BNVA) | payer MEDICARE, SELFPAY | PROVIDERS: PCP Family Medicine Adult Medicine; Visit Provider Thoracic Surgery (Cardiothoracic Vascular Surgery) | DX: Z86.79 Personal history of other diseases of the circulatory system (principal) | CPT/HCPCS: 99203 ==

== ENCOUNTER 2024-02-24 12:30 | Outpatient (CLI) | payer MEDICARE, SELFPAY ==
--- NOTE | 2024-02-24 13:00 | CT_ITS ---
WS: [id number] CTA NECK TECHNIQUE: Contrast enhanced CTA of the neck with coronal and sagittal reformatted images and maximum intensity projection (MIP) images. NASCET criteria utilized. CLINICAL INFORMATION: bilat carotid stenosis COMPARISON: None. DLP: 410.[address] scans at [facility] use at least one of these dose optimization techniques: automated e xposure control; mA and/or kV adjustment per patient size (includes targeted exams where dose is matc hed to clinical indication); or iterative reconstruction. FINDINGS: RIGHT: RIGHT common carotid artery is patent. Moderate calcified atheromatous plaque RIGHT carotid bu lb extending into the ICA. Less than 50% RIGHT ICA stenosis. RIGHT ICA is patent to the skull base. LEFT: Mild stenosis of the LEFT common carotid artery origin. LEFT common carotid artery is patent. L EFT ICA is occluded at the origin. ECA is patent. ICA remains occluded to the skull base. Petrous car otid appears occluded. Small amount of flow in the cavernous carotid partially visualized may be retr ograde. RIGHT dominant vertebral artery. Both vertebral arteries are patent. Proximal basilar artery is paten t. Proximal subclavian arteries are patent. Fibrosis in the lung apices. Prior sternotomy. IMPRESSION: 1. Less than 50% RIGHT ICA stenosis with dense calcified atheromatous plaque. RIGHT proximal ICA. St enosis measures approximately 22%. 2. LEFT ICA is occluded at the origin and remains occluded to the skull base. Mild stenosis of the L EFT common carotid artery origin. 3. RIGHT dominant vertebral artery. Both vertebral arteries are patent. 4. No other acute findings.
[2024-02-24] MEDS: iohexol 350 mg/mL 500 mL Btl (per mL) IV (14:06)
[2024-02-24 14:07] LABS: Blood Urea Nitrogen 23 mg/dL (8-23)
== END 2024-02-24 12:31 | disposition home or self-care (01) ==
LOC: RAD 12:32
PROVIDERS: PCP Family Medicine Adult Medicine; Visit Provider Thoracic Surgery (Cardiothoracic Vascular Surgery)
DX: I65.23 Occlusion and stenosis of bilateral carotid arteries (principal)
CPT/HCPCS: 70498; 82565; 84520; Q9967

== ENCOUNTER → 2024-03-14 10:13 | Outpatient (BNVA) | payer MEDICARE, SELFPAY | PROVIDERS: PCP Family Medicine Adult Medicine; Visit Provider Thoracic Surgery (Cardiothoracic Vascular Surgery) | DX: Z86.79 Personal history of other diseases of the circulatory system (principal) | CPT/HCPCS: 99213 ==

== ENCOUNTER → 2024-03-22 14:03 | Outpatient (BNVA) | payer MEDICARE, SELFPAY | PROVIDERS: PCP Family Medicine Adult Medicine; Visit Provider Orthopaedic Surgery | DX: Z98.1 Arthrodesis status (principal); M48.062 Spinal stenosis, lumbar region with neurogenic claudication | CPT/HCPCS: 72100; 99213 ==

== ENCOUNTER → 2024-06-20 11:35 | Outpatient (BNVA) | payer MEDICARE, SELFPAY | PROVIDERS: PCP Family Medicine Adult Medicine; Visit Provider Internal Medicine | DX: I25.10 Atherosclerotic heart disease of native coronary artery without angina pectoris (principal); I12.9 Hypertensive chronic kidney disease with stage 1 through stage 4 chronic kidney disease, or unspecified chronic kidney disease; E11.22 Type 2 diabetes mellitus with diabetic chronic kidney disease; N18.2 Chronic kidney disease, stage 2 (mild); Z87.891 Personal history of nicotine dependence; Z95.1 Presence of aortocoronary bypass graft; Z86.79 Personal history of other diseases of the circulatory system; E78.5 Hyperlipidemia, unspecified; Z79.84 Long term (current) use of oral hypoglycemic drugs | CPT/HCPCS: 99214 ==

== ENCOUNTER 2024-08-02 11:23 | Emergency (ER) | payer MEDICARE, SELFPAY ==
[2024-08-02 11:27] VITALS: BP 185/76; PULSE 56; RESP 20; TEMP 36; O2SAT 99
--- NOTE | 2024-08-02 11:28 | XRR_ITS ---
PROCEDURE INFORMATION: Exam: XR Chest Exam date and time: 08/02/2024 11:41 AM Age: 79 years old Clinical indication: Pain; Angina pectoris; Additional info: Cp TECHNIQUE: Imaging protocol: Radiologic exam of the chest. Views: 1 view. COMPARISON: CR XR chest 1V portable [id number] 07/28/2023 4:05 PM FINDINGS: Lungs: Unremarkable. No consolidation. Pleural spaces: Unremarkable. No pleural effusion. No pneumothorax. Heart/Mediastinum: Unremarkable. No cardiomegaly. Bones/joints: Unchanged mild scoliosis with mild and moderate multilevel spondylosis. Unchanged surgical screw in the left humeral head. Otherwise, unremarkable. Other findings: New surgical changes. XR/XR chest 1V portable [id number] IMPRESSION: New surgical changes without superimposed acute disease.
--- NOTE | 2024-08-02 11:28 | CT_ITS ---
WS: [id number] CTA HEAD AND NECK TECHNIQUE: Contrast enhanced CTA of the head and neck with coronal and sagittal reformatted images an d maximum intensity projection (MIP) images. NASCET criteria utilized. CLINICAL INFORMATION: ortiz COMPARISON: CTA 02/24/2024 DLP: 538.[address] scans at [facility] use at least one of these dose optimization techniques: automated e xposure control; mA and/or kV adjustment per patient size (includes targeted exams where dose is matc hed to clinical indication); or iterative reconstruction. FINDINGS: Chronic infarcts with encephalomalacia involving the LEFT frontal lobe and LEFT parietal lo bes. Ex-vacuo dilatation LEFT lateral ventricle. Chronic infarct RIGHT frontal lobe anteriorly. RIGHT: RIGHT common carotid artery is patent. Moderate calcified atheromatous plaque RIGHT carotid bu lb extending into the ICA with approximately 50% stenosis. RIGHT ICA is patent to the skull base. LEFT: LEFT common carotid artery is patent. Dense atheromatous plaque LEFT carotid bulb extending int o the ICA. LEFT ICA is occluded and remains occluded to the skull base. Codominant and patent vertebral arteries bilaterally. RIGHT dominant vertebral artery. Smaller but pa tent LEFT vertebral artery. INTRACRANIAL CTA: Basilar artery is patent. Normal vascularity to the [employer] territory bilaterally. LEFT ICA is occluded a t the skull base. Normal vascularity to the СВЕТЛАНА and RIGHT MCA territories. Cross-filling of the LEFT MCA territory with a patent anterior communicating artery and patent LEFT posterior communicating art norm. Relatively normal vascularity to the LEFT proximal MCA territory. CT/CT angio headneck* [id number] IMPRESSION: 1. LEFT ICA is occluded at the origin and remains occluded to the skull base. This is unchanged compared to previous. 2. Less than 50% RIGHT ICA stenosis with moderate calcified atheromatous plaqu e appears unchanged compared to previous. RIGHT ICA remains patent to the skull base. 3. RIGHT dominant vertebral artery. Smaller but patent LEFT vertebral artery. 4. No evidence of high-grade proximal intracranial stenosis. 5. LEFT MCA territory cross fills via the intercommunicating artery and LEFT p osterior communicating artery. 6. Expected decreased vascularity to the areas of chronic infarct in the LEFT frontal and parietal lobes. Notified Kaleigh Borja MD at 08/02/2024 1:16 PM.
--- NOTE | 2024-08-02 11:28 | CT_ITS ---
WS: [id number] CT HEAD TECHNIQUE: Noncontrast CT of the head obtained from the skullbase to the vertex. CLINICAL INFORMATION: ortiz COMPARISON: None. DLP: 1199.[address] scans at [facility] use at least one of these dose optimization techniques: automated e xposure control; mA and/or kV adjustment per patient size (includes targeted exams where dose is matc hed to clinical indication); or iterative reconstruction. FINDINGS: No evidence of intracranial hemorrhage or mass effect. Ventricular system and basal cisterns are rueda nt. Moderate small vessel changes with mild parenchymal volume loss. No extra-axial fluid collections . No evidence of mass or mass effect. Chronic infarcts in the LEFT frontal lobe and LEFT parietal lob es. Chronic infarct in the RIGHT frontal lobe anteriorly. Ex vacuo dilatation LEFT lateral ventricle. Vascular calcification. Paranasal sinuses and mastoid air cells are well aerated. .Normal visualized soft tissues. CT/CT head wo con* [id number] IMPRESSION: 1. No evidence of intracranial hemorrhage or mass effect. 2. Chronic infarcts in the LEFT frontal and parietal lobes with encephalomalac ia. Ex vacuo dilatation LEFT lateral ventricle. 3. Small chronic infarct in the RIGHT frontal lobe anteriorly. 4. Moderate small vessel changes with mild parenchymal volume loss. 5. No acute intracranial findings.
[2024-08-02 11:32] VITALS: BP 198/64; PULSE 53; O2SAT 97
--- NOTE | 2024-08-02 11:32 | ECG_ITS ---
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 Measurements Intervals [place] Rate: 54 P: 72 DC: 240 QRS: 33 QRSD: 134 T: 51 QT: 465 QTc: 444 Interpretive Statements SINUS BRADYCARDIA WITH FIRST DEGREE AV BLOCK RIGHT BUNDLE BRANCH BLOCK [120+ ms QRS DURATION, UPRIGHT V1, 40+ ms S IN I/aVL/V4/V5/V6] Compared to ECG 01/12/2024 10:29:56 First degree AV block now present Right bundle-branch block now present Atrial abnormality no longer present T-wave abnormality no longer present Electronically Signed On 08-02-2024 16:52:21 CDT by Price Ochoa M.D. [id number]
--- NOTE | 2024-08-02 11:34 | ED_ITS ---
HPI - General Adult 2 General: Chief complaint: General Medical Stated complaint: generalized pain Time Seen by Provider: 08/02/24 11:28 Source: patient Mode of arrival: ambulatory Limitations: no limitations History of Present Illness: 79-year-old male history coronary diseas e on previous stroke states that today roughly 2 hours ago he started to feel diaphoretic felt he is in a pass out and was having pain all over. States he is having pain to his chest, and abdomen with a headache. He received nitro en route he states that his pain is gone besides a headache he rates a 5 out of 10 denies any focal weakness or slurred speech. Denies any fever Associated symptoms: Reports chest pain and headache(s); Deny dyspnea, nausea, rash or vomiting Related Data Home Medications Medication Instructions Recorded Confirmed aspirin 81 mg tablet,delayed 81 mg PO DAILY 11/27/23 08/02/24 release finasteride 5 mg tablet 5 mg PO DAILY 08/02/24 08/02/24 trazodone 50 mg tablet 50 mg PO BEDTIME 08/02/24 08/02/24 Previous Rx's Medication Instructions Recorded atorvastatin 80 mg tablet 80 mg PO DAILY circulation #90 tabs 11/27/23 clopidogrel 75 mg tablet 75 mg PO DAILY circulation #30 tabs 11/27/23 gabapentin 400 mg capsule 400 mg PO TID chronic pain #90 caps 11/27/23 metformin 500 mg tablet 500 mg PO BID diabetes #60 tabs 11/27/23 tamsulosin 0.4 mg capsule 0.4 mg PO DAILY prostate #90 caps 11/27/23 amiodarone 200 mg tablet 200 mg PO BID heart #60 tabs 05/25/24 metoprolol succinate 50 mg 50 mg PO DAILY heart #30 tabs 05/25/24 tablet,extended release 24 hr (Toprol XL) hydrocodone 5 mg-acetaminophen 325 1 tab PO Q6H PRN pain 30 days #120 06/15/24 mg tablet tabs Allergies Allergy/AdvReac Type Severity Reaction Status Date / Time Penicillins Allergy ADR-Gastrointestinal Verified 06/21/24 09:07 Upset tramadol Allergy itching Verified 06/21/24 09:07 Review of Systems 2 Const: Denies: fever(s), chills, body aches or change in appetite ENMT: Denies: throat pain or dental pain Card: Reports: chest pain Resp: Denies: dyspnea GI: Denies: abdominal pain, nausea, vomiting or diarrhea Musc: Denies: neck pain or back pain Skin/Breast: Denies: rash Neuro: Reports: headache(s) PFSH ED 2 PFSH: Medical History Insomnia Essential tremor Hypertension associated with diabetes Osteophyte, left shoulder CKD (chronic kidney disease) stage 2, GFR 60-89 ml/min Coronary artery disease NSTEMI ~10/06/2023, CABG 11/11/2023 Hyperlipidemia Benign prostatic hyperplasia Peripheral neuropathy History of carotid artery disease Type 2 diabetes mellitus Chronic kidney disease History of multiple strokes Surgical History S/P CABG (coronary artery bypass graft) H/O carotid endarterectomy H/O bilateral cataract extraction History of appendectomy Family History Father Stroke Mother Stroke Brother Cancer Lungs Lung disease Other Diabetes Denies family history of CAD (coronary artery disease) Clotting disorder Dementia Hyperlipidemia Psychiatric illness Chronic kidney disease (CKD) Suicide Anesthesia complication Bleeding disorder Hypertension Social History Smoking and tobacco/nicotine status: never used tobacco/nicotine Alcohol intake: never Physical Exam 2 Const: COMMON NORMALS: patient oriented x3 HENMT: COMMON NORMALS: normocephalic and atraumatic HEAD & SCALP: n ormocephalic and atraumatic Eye: COMMON NORMALS: Equal, round and reactive pupils present and EOMs intact bilaterally PUPIL: Yes Equal, round and reactive pupils present Neck/C-Spine: COMMON NORMALS: full ROM and supple Chest: COMMONS NORMALS: normal inspection of the chest and normal palpation of entire chest wall Resp: COMMON NORMALS: normal respiratory effort, No retractions, No use of accessory muscles and clear to auscultation bilaterally AUSCULTATION: clear to auscultation bilaterally Cardio: COMMON NORMALS: regular rate, regular rhythm and No murmurs present (Cardio) RATE: regular rate RHYTHM: regular rhythm GI: COMMON NORMALS: Normal to inspection, nondistended, normoactive bowel sounds present, Soft to palpation, non-tender and no masses PALPATION: Yes Soft to palpation Extremity: COMMON NORMALS: normal to inspection and full ROM Neuro: COMMON NORMALS: patient oriented x3, moves all extremities and no focal motor deficits Psych: COMMON NORMALS: mental status grossly normal, Normal thought process present and cooperative THOUGHT PROCESS: Normal thought process present Skin: COMMON NORMALS: no rashes or lesions noted and no wounds GENERAL SKIN EXAM: no rashes or lesions noted Course 2 Vital Signs: Vital signs: Vital Signs Temperature 96.8 F L 08/02/24 11:27 Pulse Rate 55 L 08/02/24 13:43 Respiratory Rate 16 08/02/24 13:43 Blood Pressure 142/66 08/02/24 13:43 Pulse Oximetry 97 08/02/24 13:43 Oxygen Delivery Me thod Room Air 08/02/24 13:43 MDM - General Adult Medical Decision Making Patient presented here originally with headaches he had a episode of diaphoresis at home as well. He has been well-appearing here CTA CT head shows no acute findings just old findings troponins are negative no signs of ACS. He states he is currently symptom-free would like to go home I feel he is stable for discharge she is to follow-up with PCP and return if worsening he understands agrees to plan. Medical Records I reviewed the patient's medical records. Lab Data I reviewed the patient's lab results. 08/02/24 11:20 08/02/24 11:20 Radiology Impressions Chest X-Ray 08/02/24 11:28 IMPRESSION: New surgical changes without superimposed acute disease. Head CT 08/02/24 11:28 IMPRESSION: 1. No evidence of intracranial hemorrhage or mass effect. 2. Chronic infarcts in the LEFT frontal and parietal lobes with encephalomalacia. Ex vacuo dilatation LEFT lateral ventricle. 3. Small chronic infarct in the RIGHT frontal lobe anteriorly. 4. Moderate small vessel changes with mild parenchymal volume loss. 5. No acute intracranial findings. Head/Neck CTA 08/02/24 11:28 IMPRESSION: 1. LEFT ICA is occluded at the origin and remains occluded to the skull base. This is unchanged compared to previous. 2. Less than 50% RIGHT ICA stenosis with moderate calcified atheromatous plaque appears unchanged compared to previous. RIGHT ICA remains patent to the skull base. 3. RIGHT dominant vertebral artery. Smaller but patent LEFT vertebral artery. 4. No evidence of high-grade proximal intracranial stenosis. 5. LEFT MCA territory cross fills via the intercommunicating artery and LEFT posterior communicating artery. 6. Expected decreased vascularity to the areas of chronic infarct in the LEFT frontal and parietal lobes. Notified Kaleigh Borja MD at 08/02/2024 1:16 PM. Laboratory Results WBC 9.36 10^3/uL (3.29-11.43) 08/02/24 11:20 RBC 4.63 10^6/uL (3.85-5.65) 08/02/24 11:20 Hgb 14.40 g/dL (11.27-16.99) 08/02/24 11:20 Hct 43.2 % (37-53) 08/02/24 11:20 MCV 93.3 fl (82-101) 08/02/24 11:20 MCH 31.1 pg (27-33) 08/02/24 11:20 MCHC 33.3 g/dL (30-55) 08/02/24 11:20 RDW 13.8 % (12.1-15.1) 08/02/24 11:20 Plt Count 191 10^3/cmm (157-399) 08/02/24 11:20 MPV 9.5 fL (7.4-10.4) 08/02/24 11:20 Neut % (Auto) 72.8 % 08/02/24 11:20 Lymph % (Auto) 15.8 % 08/02/24 11:20 Cedar % (Auto) 9.3 % 08/02/24 11:20 Eos % (Auto) 1.5 % 08/02/24 11:20 Baso % (Auto) 0.2 % 08/02/24 11:20 Neut # (Auto) 6.81 10^3/uL (1.8-7.7) 08/02/24 11:20 Lymph # (Auto) 1.5 10^3/uL (0.8-4.8) 08/02/24 11:20 Cedar # (Auto) 0.9 10^3/uL (0.2-0.9) 08/02/24 11:20 Eos # (Auto) 0.1 10^3/uL (0.0-0.8) 08/02/24 11:20 Baso # (Auto) 0.0 10^3/uL (0.0-0.1) 08/02/24 11:20 Nucleated RBC % (auto) 0 % 08/02/24 11:20 Nucleated RBCs # 0.0 /100WBC 08/02/24 11:20 PT 12.50 SECONDS (12.1-14.9) 08/02/24 11:50 INR 0.91 (0.8-1.2) 08/02/24 11:50 Sodium 136 mmol/L (136-145) 08/02/24 11:20 Potassium 5.1 mmol/L (3.5-5.1) 08/02/24 11:20 Chloride 97 mmol/L (98-107) L 08/02/24 11:20 Carbon Dioxide 25 mmol/L (22-29) 08/02/24 11:20 Anion Gap 19.1 (5-19) H 08/02/24 11:20 BUN 24 mg/dL (8-23) H 08/02/24 11:20 Creatinine 1.5 mg/dL (0.7-1.2) H 08/02/24 11:20 GFR Calculation Not Reportable 08/02/24 11:20 Glucose 115 mg/dL (65-115) 08/02/24 11:20 Calculated Osmolality 287 mOsm/kg (285-295) 08/02/24 11:20 Calcium 9.4 mg/dL (8.5-10.5) 08/02/24 11:20 Total Bilirubin 0.5 mg/dL (0.15-1.2) 08/02/24 11:20 AST 32 U/L (0-40) 08/02/24 11:20 ALT 41 U/L (0-41) 08/02/24 11:20 Alkaline Phosphatase 114 U/L (40-130) 08/02/24 11:20 Troponin T Baseline 34 ng/L (0-15) H 08/02/24 11:20 Troponin T 120 Minute 30.70 ng/L (0-15) H 08/02/24 13:36 Delta Troponin T -3.30 ABS# (0-10) L 08/02/24 13:36 Total Protein 7.0 g/dL (6.6-8.7) 08/02/24 11:20 Albumin 4.4 g/dL (3.5-5.2) 08/02/24 11:20 Globulin 2.6 g/dL (1.3-4.6) 08/02/24 11:20 Lipase 23 U/L (13-60) 08/02/24 11:20 All radiology interpretation(s) finalized by discharge EKG Data EKG 1: I personally reviewed and interpreted this EKG as follows: EKG interpretation date: 08/02/24 EKG interpretation time: 11:32 Interpretation: sinus rosie hr [address] elevation qrs 134 qtc 452 Computer generated interpretation: Chest X-Ray 08/02/24 11:28 IMPRESSION: New surgical changes without superimposed acute disease. Head CT 08/02/24 11:28 IMPRESSION: 1. No evidence of intracranial hemorrhage or mass effect. 2. Chronic infarcts in the LEFT frontal and parietal lobes with encephalomalacia. Ex vacuo dilatation LEFT lateral ventricle. 3. Small chronic infarct in the RIGHT frontal lobe anteriorly. 4. Moderate small vessel changes with mild parenchymal volume loss. 5. No acute intracranial findings. Head/Neck CTA 08/02/24 11:28 IMPRESSION: 1. LEFT ICA is occluded at the origin and remains occluded to the skull base. This is unchanged compared to previous. 2. Less than 50% RIGHT ICA stenosis with moderate calcified atheromatous plaque appears unchanged compared to previous. RIGHT ICA remains patent to the skull base. 3. RIGHT dominant vertebral artery. Smaller but patent LEFT vertebral artery. 4. No evidence of high-grade proximal intracranial stenosis. 5. LEFT MCA territory cross fills via the intercommunicating artery and LEFT posterior communicating artery. 6. Expected decreased vascularity to the areas of chronic infarct in the LEFT frontal and parietal lobes. Notified Kaleigh Borja MD at 08/02/2024 1:16 PM. EKG 2: I personally reviewed and interpreted this EKG as follows: EKG interpretation date: 08/02/24 EKG interpretation time: 14:27 Computer generated interpretation: Chest X-Ray 08/02/24 11:28 IMPRESSION: New surgical changes without superimposed acute disease. Head CT 08/02/24 11:28 IMPRESSION: 1. No evidence of intracranial hemorrhage or mass effect. 2. Chronic infarcts in the LEFT frontal and parietal lobes with encephalomalacia. Ex vacuo dilatation LEFT lateral ventricle. 3. Small chronic infarct in the RIGHT frontal lobe anteriorly. 4. Moderate small vessel changes with mild parenchymal volume loss. 5. No acute intracranial findings. Head/Neck CTA 08/02/24 11:28 IMPRESSION: 1. LEFT ICA is occluded at the origin and remains occluded to the skull base. This is unchanged compared to previous. 2. Less than 50% RIGHT ICA stenosis with moderate calcified atheromatous plaque appears unchanged compared to previous. RIGHT ICA remains patent to the skull base. 3. RIGHT dominant vertebral artery. Smaller but patent LEFT vertebral artery. 4. No evidence of high-grade proximal intracranial stenosis. 5. LEFT MCA territory cross fills via the intercommunicating artery and LEFT posterior communicating artery. 6. Expected decreased vascularity to the areas of chronic infarct in the LEFT frontal and parietal lobes. Notified Kaleigh Borja MD at 08/02/2024 1:16 PM. sinus rosie hr [address] elevation qrs 121 qtc 423 Discharge Plan Discharge Patient Disposition: Home Clinical Impression: Headache Condition: Stable Prescriptions: No Action aspirin 81 mg tablet,delayed release (DR/EC) 81 mg PO DAILY atorvastatin 80 mg tablet 80 mg PO DAILY Qty: 90 3RF clopidogrel 75 mg tablet 75 mg PO DAILY Qty: 30 5RF gabapentin 400 mg capsule 400 mg PO TID Qty: 90 5RF metformin 500 mg tablet 500 mg PO BID Qty: 60 11RF tamsulosin 0.4 mg capsule 0.4 mg PO DAILY Qty: 90 3RF amiodarone 200 mg tablet 200 mg PO BID Qty: 60 5RF metoprolol succinate [Toprol XL] 50 mg tablet extended release 24 hr 50 mg PO DAILY Qty: 30 5RF hydrocodone-acetaminophen 5-325 mg tablet 1 tab PO Q6H PRN (Reason: pain) 30 Days Qty: 120 0RF finasteride 5 mg tablet 5 mg PO DAILY trazodone 50 mg tablet 50 mg PO BEDTIME Discharge Orders: Discharge ED (Routine); Ordered 08/02/24 Ordered By: Kaleigh Borja Referrals: Bill Echavarria MD [Primary Care Provider] - 4-7 days Discharge Diet: Advance as tolerated Discharge Activity: Resume usual activity Patient Instructions: General Headache (ED) Coding Level of Care Code ED Php Website Developer for [employer]
[2024-08-02 11:41] LABS: Basophils % 0.2 %; Eosinophils # 0.1 10^3/uL (0.0-0.8); Eosinophils % 1.5 %; Hematocrit 43.2 % (37-53); Lymphocytes # 1.5 10^3/uL (0.8-4.8); Lymphocytes % 15.8 %; Mean Corpuscular HGB Conc 33.3 g/dL (30-55); Mean Corpuscular Hemoglobin 31.1 pg (27-33); Mean Corpuscular Volume 93.3 fl (82-101); Mean Platelet Volume 9.5 fL (7.4-10.4); Monocytes # 0.9 10^3/uL (0.2-0.9); Monocytes % 9.3 %; Neutrophils # 6.81 10^3/uL (1.8-7.7); Neutrophils % 72.8 %; Nucleated Red Blood Cells % 0 %; Platelet Count 191 10^3/cmm (157-399); Red Blood Count 4.63 10^6/uL (3.85-5.65); Red Cell Distribution Width 13.8 % (12.1-15.1); White Blood Count 9.36 10^3/uL (3.29-11.43)
[2024-08-02 12:02] LABS: Alanine Aminotransferase 41 U/L (0-41); Albumin Level 4.4 g/dL (3.5-5.2); Alkaline Phosphatase 114 U/L (40-130); Anion Gap 19.1 (5-19); Aspartate Amino Transferase 32 U/L (0-40); Blood Urea Nitrogen 24 mg/dL (8-23); Calcium 9.4 mg/dL (8.5-10.5); Carbon Dioxide 25 mmol/L (22-29); Chloride 97 mmol/L (98-107); Creatinine Clr Calc Pharmacy 43.1008; Globulin 2.6 g/dL (1.3-4.6); Glucose 115 mg/dL (65-115); Lipase 23 U/L (13-60); Osmolality Calculated 287 mOsm/kg (285-295); Potassium 5.1 mmol/L (3.5-5.1); Sodium 136 mmol/L (136-145); Total Bilirubin 0.5 mg/dL (0.15-1.2)
[2024-08-02 12:04] LABS: Troponin(5th) Baseline 34 ng/L (0-15)
[2024-08-02 12:07] LABS: INR 0.91 (0.8-1.2)
[2024-08-02] MEDS: iohexol 350 mg/mL 500 mL Btl (per mL) IV (12:25)
[2024-08-02 12:32] VITALS: BP 155/80; PULSE 54; RESP 19; O2SAT 100
--- NOTE | 2024-08-02 12:58 | PC.PHAR ---
PT IS va
--- NOTE | 2024-08-02 13:28 | ECG_ITS ---
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 Measurements Intervals [place] Rate: 54 P: 62 NM: 268 QRS: 34 QRSD: 121 T: 35 QT: 438 QTc: 415 Interpretive Statements SINUS BRADYCARDIA WITH FIRST DEGREE AV BLOCK POSSIBLE RIGHT VENTRICULAR CONDUCTION DELAY [RSR (QR) IN V1/V2] ST DEVIATION AND MODERATE T-WAVE ABNORMALITY, CONSIDER ANTERIOR ISCHEMIA [-0.1+ mV T-WAVE IN V3/V4] Compared to ECG 08/02/2024 11:32:27 T-wave abnormality now present Possible ischemia now present Right bundle-branch block no longer present Electronically Signed On 08-02-2024 16:56:01 CDT by Price Ochoa M.D. [id number]
[2024-08-02 13:43] VITALS: BP 142/66; PULSE 55; RESP 16; O2SAT 97
[2024-08-02 15:27] VITALS: BP 164/67; PULSE 54; RESP 16; O2SAT 98
== END 2024-08-02 15:33 | disposition home or self-care (01) ==
PROVIDERS: Emergency Provider Emergency Medicine; PCP Family Medicine Adult Medicine
DX: R51.9 Headache, unspecified (principal); Z79.02 Long term (current) use of antithrombotics/antiplatelets; Z79.82 Long term (current) use of aspirin; Z79.84 Long term (current) use of oral hypoglycemic drugs; R00.1 Bradycardia, unspecified; E11.22 Type 2 diabetes mellitus with diabetic chronic kidney disease; I12.9 Hypertensive chronic kidney disease with stage 1 through stage 4 chronic kidney disease, or unspecified chronic kidney disease; N18.2 Chronic kidney disease, stage 2 (mild); I25.10 Atherosclerotic heart disease of native coronary artery without angina pectoris; E78.5 Hyperlipidemia, unspecified; Z86.73 Personal history of transient ischemic attack (TIA), and cerebral infarction without residual deficits; Z95.1 Presence of aortocoronary bypass graft
CPT/HCPCS: 36415; 70450; 70496; 70498; 71045; 80053; 83690; 84484; 85025; 85610; 93005; 99285

== ENCOUNTER → 2024-08-18 15:59 | Outpatient (BNVA) | payer MEDICARE, SELFPAY | PROVIDERS: PCP Family Medicine Adult Medicine | DX: N18.2 Chronic kidney disease, stage 2 (mild) (principal) | CPT/HCPCS: 80053; 85025 ==

== ENCOUNTER 2024-08-23 06:02 | Outpatient (CLI) | payer MEDICARE, SELFPAY ==
--- NOTE | 2024-08-23 06:15 | USCV_ITS ---
Eric Gustafson Age: 79 Gender: M : 1945 Exam Date: 08/23/2024 06:27 Ordering Phys: Price Ochoa M.D ([email or web address]) Technologist: Exam Location: [facility] [place] Indication: hx cad BP: 140 / 90 HR: 50 Rhythm: Sinus Technical Quality: Adequate MEASUREMENTS (Male / Female) Normal Values 2D ECHO LV Diastolic Diameter PLAX 4.8 cm 4.2 - 5.9 / 3.9 - 5.3 cm IVS Diastolic Thickness 1.3 cm 0.6 - 1.0 / 0.6 - 0.9 cm IVS Systolic Thickness 1.9 cm LVPW Diastolic Thickness 1.4 cm 0.6 - 1.0 / 0.6 - 0.9 cm LVPW Systolic Thickness 1.7 cm LVOT Diameter 2.1 cm LV Ejection Fraction 2D Teich 69.8 % LV Ejection Fraction MOD 4C 61.6 % LV Ejection Fraction MOD 2C 61.8 % LV Ejection Fraction 2C AL 62.8 % LA Diameter 4.5 cm RA Systolic Volume 4C AL 53.6 ml RA Systolic Volume 4C MOD 48.8 ml LA Sys Volume AL 95.3 cm cubed LA Sys Volume Index AL 47.7 cm cubed/m squared Aorta at Sinotubular Diameter 2.5 cm M-MODE LA Ao Ratio MM 1.2 AV Cusp Separation MM 2.6 cm DOPPLER AV Peak Velocity 106.0 cm/s LVOT Peak Velocity 83.0 cm/s AV Area Cont Eq vti 3.0 cm squared AV Area Cont Eq pk 2.7 cm squared MV Peak Velocity 99.0 cm/s MV Area PHT 3.9 cm squared Mitral E to A Ratio 1.4 TV Peak Velocity 183.5 cm/s TR Peak Velocity 226.0 cm/s TR Peak Gradient 20.4 mmHg TV Peak E Velocity 90.0 cm/s Right Atrial Pressure 3.0 mmHg Pulmonary Artery Systolic Pressu 23.4 mmHg PV Peak Velocity 91.0 cm/s FINDINGS Left Ventricle Normal left ventricular size and systolic function, . Left ventricular ejection fraction is estimated at 60%. Grade II/IV diastolic dysfunction, moderately elevated filling pressures. Right Ventricle The right ventricle is normal in size and function. Right Atrium The right atrium is normal in size. Left Atrium The left atrium is normal in size. Mitral Valve Moderately thickened mitral valve. Moderate mitral annular calcification. No mitral valve stenosis. Mild mitral valve regurgitation. Aortic Valve Moderate aortic valve calcification. No aortic valve stenosis. Trace aortic valve regurgitation. Tricuspid Valve Structurally normal tricuspid valve without significant stenosis or regurgitation. Pulmonary artery systolic pressure is normal. Pulmonic Valve Structurally normal pulmonic valve without significant stenosis. There is no pulmonic regurgitation. Pericardium Normal pericardium without effusion. Aorta Normal ascending aorta dimension. IVC The inferior vena cava appears normal. CONCLUSIONS Normal left ventricular size and systolic function, . Left ventricular ejection fraction is estimated at 60%. Grade II/IV diastolic dysfunction, moderately elevated filling pressures. Moderately thickened mitral valve. Moderate mitral annular calcification. No mitral valve stenosis. Mild mitral valve regurgitation. There is no pericardial effusion. Pulmonary artery systolic pressure is within normal limits. Right atrial pressure is around 5 mm of mercury. Henok Carter MD (Electronically Signed) Final Date: 23 August 2024 13:58 S
== END 2024-08-23 06:03 | disposition home or self-care (01) ==
PROVIDERS: PCP Family Medicine Adult Medicine; Visit Provider Internal Medicine
DX: I50.30 Unspecified diastolic (congestive) heart failure (principal); I34.81 Nonrheumatic mitral (valve) annulus calcification; I34.0 Nonrheumatic mitral (valve) insufficiency; I70.0 Atherosclerosis of aorta; R06.02 Shortness of breath
CPT/HCPCS: 93306

== ENCOUNTER → 2024-09-02 10:22 | Outpatient (BNVA) | payer MEDICARE, SELFPAY | PROVIDERS: PCP Family Medicine Adult Medicine | DX: N18.2 Chronic kidney disease, stage 2 (mild) (principal) | CPT/HCPCS: 80053; 85025 ==

== ENCOUNTER → 2024-10-18 07:50 | Outpatient (BNVA) | payer MEDICARE, SELFPAY | PROVIDERS: PCP Family Medicine Adult Medicine; Visit Provider Orthopaedic Surgery | DX: Z98.1 Arthrodesis status (principal); T84.84XA Pain due to internal orthopedic prosthetic devices, implants and grafts, initial encounter; Y79.2 Prosthetic and other implants, materials and accessory orthopedic devices associated with adverse incidents; M48.062 Spinal stenosis, lumbar region with neurogenic claudication; E11.9 Type 2 diabetes mellitus without complications | CPT/HCPCS: 36415; 72100; 80053; 81001; 83036; 85025; 99214 ==

== ENCOUNTER 2024-11-28 05:44 | Day surgery (SDC) | payer MEDICARE, SELFPAY ==
--- NOTE | 2024-11-26 08:40 | ANES.PREANE2 ---
Pre-Anesthetic Assessment Height/Weight: Height 5 ft 9 in Preop Diagnosis: Failed back hardware Operation Date: 11/28/24 07:00 Proposed Procedures p Hardware Removal Back(Not Applicable) - Gomez Britt, DO Was Beta Ace taken within 24 hours: N/A Was Clonidine taken within 24 hours: N/A Social No alcohol and No tobacco Exam alert, oriented x 3, clear to auscultation bilaterally and regular rate & rhythm Airway Submandibular: within normal limits Cervical ROM: within normal limits Mallampati: Class II Comments: Comments: Edentulous Anesthetic Plan ASA status: 3 Anesthesia: General Other: Patient reportedly hallucinates after anesthesia. Did this after both his back surgery and CABG NPO since yesterday Prior history of CAD, CABG in October 2023. On chronic Plavix. Most recent taken 11/23/2024 Hypertension on metoprolol and amiodarone On chronic pain medication CKD, Type 2 diabetes, BS 141 Patient recently developed a tremor, still needs to see neurology for workup Labs reviewed from October and acceptable for procedure Plan for GETA Medications/Allergies Home Medications Medication Instructions Recorded Confirmed Last Taken Type aspirin 81 mg tablet,delayed 81 mg PO DAILY 11/27/23 11/28/24 11/23/24 History release gabapentin 400 mg capsule 400 mg PO TID chronic pain #90 caps 11/27/23 11/28/24 11/28/24 Rx finasteride 5 mg tablet 5 mg PO DAILY #30 tabs 10/03/24 11/28/24 11/28/24 Rx hydrocodone 5 mg-acetaminophen 325 1 tab PO Q6H PRN pain 30 days #120 10/18/24 11/28/24 11/27/24 Rx mg tablet tabs amiodarone 200 mg tablet 200 mg PO BID heart #60 tabs 10/31/24 11/28/24 11/28/24 Rx atorvastatin 80 mg tablet 80 mg PO DAILY circulation #90 tabs 10/31/24 11/28/24 11/28/24 Rx clopidogrel 75 mg tablet 75 mg PO DAILY circulation #30 tabs 10/31/24 11/28/24 11/23/24 Rx metformin 500 mg tablet 500 mg PO BID diabetes #60 tabs 10/31/24 11/28/24 11/27/24 Rx primidone 50 mg tablet 25 mg (1/2 x 50 mg) PO ONCE #30 10/31/24 11/28/24 Unknown Rx tabs tamsulosin 0.4 mg capsule 0.4 mg PO DAILY prostate #90 caps 10/31/24 11/28/24 11/28/24 Rx trazodone 50 mg tablet 50 mg PO BEDTIME #30 tabs 10/31/24 11/28/24 11/27/24 Rx metoprolol succinate 25 mg 25 mg PO DAILY heart #30 tabs 11/15/24 11/28/24 11/28/24 Rx tablet,extended release 24 hr Allergies Allergy/AdvReac Type Severity Reaction Status Date / Time amantadine Allergy Intermediate ADR-Itching Verified 11/21/24 12:07 Penicillins Allergy ADR-Gastrointestinal Verified 11/21/24 12:07 Upset tramadol Allergy itching Verified 11/21/24 12:07 [facility] Anesthesia Medical History Insomnia Essential tremor Hypertension associated with diabetes Osteophyte, left shoulder CKD (chronic kidney disease) stage 2, GFR 60-89 ml/min Coronary artery disease NSTEMI ~10/06/2023, CABG 11/11/2023 Hyperlipidemia Benign prostatic hyperplasia Peripheral neuropathy History of carotid artery disease Type 2 diabetes mellitus Chronic kidney disease History of multiple strokes Surgical History S/P CABG (coronary artery bypass graft) H/O carotid endarterectomy H/O bilateral cataract extraction History of appendectomy Family History Father Stroke Mother Stroke Brother Cancer Lungs Lung disease Other Diabetes Denies family history of CAD (coronary artery disease) Clotting disorder Dementia Hyperlipidemia Psychiatric illness Chronic kidney disease (CKD) Suicide Anesthesia complication Bleeding disorder Hypertension Social History Smoking and tobacco/nicotine status: never used tobacco/nicotine Alcohol intake: never Data Anesthesia Cardiac Studies: Echocardiogram 08/23/24 Echocardiogram Ultrasound 10/07/23 Cardiac Event Monitor 06/20/24
[2024-11-28] VITALS (10 sets, daily range): BP systolic 107–181; BP diastolic 56–78; PULSE 61–89; RESP 14–19; TEMP 36.1–36.6; O2SAT 92–100
[2024-11-28 06:17] LABS: Glucose Point of Care 141 mg/dL (70-110)
[2024-11-28] MEDS: sodium chloride 0.9% 1,000 ML 30 ML IV (06:22)
--- NOTE | 2024-11-28 06:41 | W.PM.OPSUD ---
Surgery/Procedure H&P Update DATE OF PROCEDURE: November 28, 2024 DATE H&P PERFORMED: 11/21/24 H&P UPDATE INFORMATION: I have reviewed H&P completed within last 30 days, I have examined patient prior to procedure and No changes to prior documentation PREOP DIAGNOSIS: Failed back hardware PLANNED PROCEDURE: Operation Date: 11/28/24 07:00 Proposed Procedures p Hardware Removal Back(Not Applicable) - Gomez Britt, DO
[2024-11-28] MEDS: clindamycin 600 MG/50 ML PREMIX 100 MG IV (06:59)
[2024-11-28] MEDS: lidocaine-epi 1% PF 1:200,000 30 mL SDV INJECTION (07:36)
[2024-11-28] MEDS: VANCOMYCIN ADD-Vantage 1,000 MG VIAL 1000 MG XX (07:48)
--- NOTE | 2024-11-28 08:14 | PM.OP ---
Operative Report Date of procedure: November 28, 2024 Pre-op diagnosis: Low back pain with loose hardware Post-op diagnosis: same Procedure done: Removal of deep hardware from iliac crest lumbar spine Surgeon: Gomez Britt DO Estimated blood loss (mL): 5 Procedure: Removal of deep hardware from lumbar spine and pelvis. Patient brought the op suite after undergoing anesthesia is placed in the prone position. All areas impingement well-padded. Patient's prepped and draped normal sterile fashion. Skin incisions made over the previous incision. Fascia split over the right and left iliosacral screws. The screw Was removed. The jocelyn was cut with using a high-speed bur. The jocelyn was removed. Then the screw was backed out the iliac crest. This was done on both the right and left sides. Wounds were irrigated and closed with Vicryl suture as well as Monocryl suture. Sterile dressings were applied patient transferred to the PACU in stable addition.
--- NOTE | 2024-11-28 08:43 | XR_ITS ---
WS: [id number] INTRAOPERATIVE TECHNIQUE: 2 Spot fluoroscopic images for intraoperative purposes. FLUOROSCOPY TIME: 3.2 seconds CLINICAL INFORMATION: OR PICS FINDINGS: Partially visualized prior pedicle screw fixation lumbar spine and sacrum and sacroiliac joints. Imag es obtained for intraoperative purposes. XR/XR lumbar spine 2-3V* [id number] IMPRESSION: Images obtained for intraoperative purposes.
--- NOTE | 2024-11-28 09:55 | ANE.PACU2 ---
Inpatient post-anesthesia follow up: Airway intact: Yes Vital signs: Temperature 97 F Pulse Rate 61 Respiratory Rate 16 Blood Pressure 152/62 Pulse Oximetry 92 Oxygen Delivery Me thod Nasal Cannula Oxygen Flow Rate 2 Fraction of Inspir ed Oxygen Hydration adequate: Yes Nausea and vomiting: No Pain level: 1 Mental status: Baseline
== END 2024-11-28 09:55 | disposition home or self-care (01) ==
PROVIDERS: Visit Provider Orthopaedic Surgery
PROC: (CPT 20680; principal; 2024-11-28 07:00)
DX: T84.84XA Pain due to internal orthopedic prosthetic devices, implants and grafts, initial encounter (principal); Y82.8 Other medical devices associated with adverse incidents; Z95.1 Presence of aortocoronary bypass graft; I25.10 Atherosclerotic heart disease of native coronary artery without angina pectoris; Z79.02 Long term (current) use of antithrombotics/antiplatelets; G89.29 Other chronic pain; E11.22 Type 2 diabetes mellitus with diabetic chronic kidney disease; I12.9 Hypertensive chronic kidney disease with stage 1 through stage 4 chronic kidney disease, or unspecified chronic kidney disease; N18.9 Chronic kidney disease, unspecified; R25.1 Tremor, unspecified; Z79.82 Long term (current) use of aspirin; Z79.84 Long term (current) use of oral hypoglycemic drugs; Z86.73 Personal history of transient ischemic attack (TIA), and cerebral infarction without residual deficits; N40.0 Benign prostatic hyperplasia without lower urinary tract symptoms
CPT/HCPCS: 20680; 36416; 72100; 76000; 82962; J1100; J2405; J3010; J3370; J3490; J7030

== ENCOUNTER → 2024-12-13 10:30 | Outpatient (BNVA) | payer MEDICARE, SELFPAY | PROVIDERS: Visit Provider Orthopaedic Surgery | DX: T84.84XA Pain due to internal orthopedic prosthetic devices, implants and grafts, initial encounter (principal); Y79.3 Surgical instruments, materials and orthopedic devices (including sutures) associated with adverse incidents | CPT/HCPCS: 99024 ==

== ENCOUNTER → 2024-12-27 10:13 | Outpatient (BNVA) | payer MEDICARE, SELFPAY | PROVIDERS: Visit Provider Orthopaedic Surgery | DX: Z48.89 Encounter for other specified surgical aftercare (principal) | CPT/HCPCS: 99024 ==

== ENCOUNTER → 2025-01-03 10:02 | Outpatient (BNVA) | payer MEDICARE, SELFPAY | PROVIDERS: Visit Provider Internal Medicine | DX: I25.10 Atherosclerotic heart disease of native coronary artery without angina pectoris (principal); Z95.1 Presence of aortocoronary bypass graft; I12.9 Hypertensive chronic kidney disease with stage 1 through stage 4 chronic kidney disease, or unspecified chronic kidney disease; N18.2 Chronic kidney disease, stage 2 (mild); E78.2 Mixed hyperlipidemia; Z86.79 Personal history of other diseases of the circulatory system; Z87.891 Personal history of nicotine dependence | CPT/HCPCS: 99214 ==

== ENCOUNTER → 2025-02-07 07:40 | Outpatient (BNVA) | payer MEDICARE, SELFPAY | PROVIDERS: Visit Provider Orthopaedic Surgery | DX: T84.84XA Pain due to internal orthopedic prosthetic devices, implants and grafts, initial encounter (principal); Y79.3 Surgical instruments, materials and orthopedic devices (including sutures) associated with adverse incidents; M54.9 Dorsalgia, unspecified | CPT/HCPCS: 72100; 99024 ==

== ENCOUNTER → 2025-02-20 07:46 | Outpatient (BNVA) | payer MEDICARE, MEDICAID, SELFPAY | PROVIDERS: Visit Provider Psychiatry & Neurology Neurology | DX: G25.0 Essential tremor (principal); I63.9 Cerebral infarction, unspecified; G45.9 Transient cerebral ischemic attack, unspecified; R29.898 Other symptoms and signs involving the musculoskeletal system; G25.3 Myoclonus; M54.2 Cervicalgia; M62.541 Muscle wasting and atrophy, not elsewhere classified, right hand; M62.542 Muscle wasting and atrophy, not elsewhere classified, left hand | CPT/HCPCS: 99203 ==

== ENCOUNTER 2025-02-27 09:42 | Outpatient (CLI) | payer MEDICARE, MEDICAID, SELFPAY ==
--- NOTE | 2025-02-27 10:15 | MR_ITS ---
WS: [id number] MRI HEAD WITHOUT CONTRAST TECHNIQUE: Sagittal T1, T2 axial, T2 axial FLAIR, axial and coronal T1 images, axial susceptibility weighted imaging, axial diffusion weighted images, and coronal T2 images were obtained. CLINICAL INFORMATION: G25.0 - Essential tremor COMPARISON: CT 2023 FINDINGS: No evidence of restricted diffusion to suggest acute ischemia. Moderate small vessel changes with moderate parenchymal volume loss. Tiny chronic lacunar infarct RIGHT cerebellum. 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 Normal RIGHT ICA flow void at the skull base. Paranasal sinuses are well aerated. Mild mucosal thickening in the mastoid air cells. No hemosiderin on the susceptibility weighted images. Normal optic chiasm and pituitary infundibulum. Mild to moderate symmetric atrophy temporal lobes and hippocampal formations. Chronic infarcts in the LEFT frontal and parietal lobes with encephalomalacia and gliosis similar to previous. Ex vacuo dilatation LEFT lateral ventricle. Small chronic infarct in the RIGHT frontal lobe anteriorly. MR/MR head wo con* [id number] IMPRESSION: 1. No evidence of restricted diffusion to suggest acute ischemia. 2. Chronic infarcts described above unchanged from previous. 3. 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 4. Moderate small vessel changes with moderate parenchymal volume loss. 5. Chronic lacunar infarcts in the cerebellum. 6. No hemosiderin on the susceptibility weighted images.
--- NOTE | 2025-02-27 11:00 | MR_ITS ---
WS: [id number] MRI CERVICAL SPINE NONCONTRAST TECHNIQUE: Sagittal T1, T2 and STIR imaging. Axial T2, gradient, and fiesta imaging. CLINICAL INFORMATION: G25.3 - Myoclonus COMPARISON: None. FINDINGS: Straightening of the normal cervical lordosis. Mild cervical curve. Cord signal is normal. C2-C3: Mild LEFT foraminal narrowing. Mild facet arthropathy. C3-C4: Moderate facet arthropathy. Moderate bilateral bony foraminal narrowing LEFT greater than RIGHT. C4-C5: Mild disc osteophyte complex with endplate ridging. Moderate facet arthropathy. Moderate RIGHT and mild LEFT foraminal narrowing. C5-C6: Disc osteophyte complex with endplate ridging. Moderate to severe LEFT and mild to moderate RIGHT bony foraminal narrowing. Moderate facet arthropathy. Mild central canal stenosis with a tiny central protrusion. C6-C7: LEFT paracentral disc osteophyte protrusion with indentation of the LEFT ventral cervical cord. Mild central canal stenosis. Severe LEFT and mild RIGHT bony foraminal narrowing. Mild facet arthropathy. C7-T1: Mild LEFT bony foraminal narrowing. Spinal canal and RIGHT foramen are patent. Visualized brain stem structures: Normal. Prevertebral soft tissues: Normal. MR/MR cervical spin wo con* [id number] IMPRESSION: 1. LEFT paracentral protrusion C6-7 with indentation of the LEFT ventral cervi jakob cord and mild central canal stenosis. Small annular fissure. Severe LEFT fo raminal narrowing. 2. Shallow central protrusion C5-6 with mild central canal stenosis. Moderate to severe LEFT foraminal narrowing. 3. Otherwise mild to moderate bony foraminal narrowing described above.
== END 2025-02-27 09:43 | disposition home or self-care (01) ==
LOC: RAD 09:45
PROVIDERS: Visit Provider Psychiatry & Neurology Neurology
DX: G25.3 Myoclonus (principal); G25.0 Essential tremor; I63.9 Cerebral infarction, unspecified; I65.22 Occlusion and stenosis of left carotid artery; R93.0 Abnormal findings on diagnostic imaging of skull and head, not elsewhere classified; H74.8X9 Other specified disorders of middle ear and mastoid, unspecified ear; G31.89 Other specified degenerative diseases of nervous system; G93.89 Other specified disorders of brain; M50.223 Other cervical disc displacement at C6-C7 level; M48.02 Spinal stenosis, cervical region; M43.8X2 Other specified deforming dorsopathies, cervical region; M47.892 Other spondylosis, cervical region; M25.78 Osteophyte, vertebrae; M48.03 Spinal stenosis, cervicothoracic region
CPT/HCPCS: 70551; 72141

== ENCOUNTER → 2025-03-07 09:04 | Outpatient (BNVA) | payer MEDICARE, MEDICAID, SELFPAY | PROVIDERS: Referring Provider Psychiatry & Neurology Neurology; Visit Provider Psychiatry & Neurology Neurology | DX: G25.3 Myoclonus (principal) | CPT/HCPCS: 95813; 95885; 95911 ==

== ENCOUNTER → 2025-04-24 13:40 | Outpatient (BNVA) | payer MEDICARE, MEDICAID, SELFPAY | PROVIDERS: Visit Provider Nurse Practitioner | DX: G56.03 Carpal tunnel syndrome, bilateral upper limbs (principal); G56.23 Lesion of ulnar nerve, bilateral upper limbs; Z01.818 Encounter for other preprocedural examination | CPT/HCPCS: 36415; 73110; 80053; 81001; 85025; 99204 ==

== ENCOUNTER → 2025-05-22 09:01 | Outpatient (BNVA) | payer MEDICARE, MEDICAID, SELFPAY | PROVIDERS: Visit Provider Family Medicine | DX: Z01.818 Encounter for other preprocedural examination (principal); R00.1 Bradycardia, unspecified; I44.0 Atrioventricular block, first degree | CPT/HCPCS: 93005 ==

== ENCOUNTER → 2025-05-23 05:39 | Day surgery (SDC) | payer MEDICARE, MEDICAID, SELFPAY ==
[2025-05-23] VITALS (10 sets, daily range): BP systolic 135–176; BP diastolic 59–83; PULSE 50–60; RESP 12–18; TEMP 36.1–36.4; O2SAT 94–99; BMI 27.6
--- NOTE | 2025-05-23 06:23 | ANES.PREANE2 ---
Pre-Anesthetic Assessment Height/Weight: Height 5 ft 9 in Weight 187 lb Temp Pulse Resp BP Pulse Ox O2 Del Method 97.6 F 57 L 18 170/83 97 Room Air 05/23/25 06:16 05/23/25 06:16 05/23/25 06:16 05/23/25 06:16 05/23/25 06:16 05/23/25 06:16 Preop Diagnosis: Carpal tunnel syndrome Operation Date: 05/23/25 07:00 Proposed Procedures p Carpal Tunnel Release(Left) - Angela Shaikh MD s Ulna Nerve Decompression(Left) - Angela Shaikh MD Was Beta Ace taken within 24 hours: Yes Was Clonidine taken within 24 hours: N/A Last intake: Intake Last Liquid Date 05/22/25 Last Liquid Time 17:00 Last Solid Date 05/22/25 Last Solid Time 17:00 Social No alcohol and No tobacco Quit smoking years ago Exam alert, oriented x 3, clear to auscultation bilaterally and regular rate & rhythm Airway Submandibular: within normal limits Cervical ROM: within normal limits Mallampati: Class II Comments: Comments: Edentulous Anesthetic Plan ASA status: 3 Anesthesia: General Other: No prior issues with anesthesia NPO since yesterday evening History of hypertension on metoprolol. Preop BP 170/83 S/p CABG 2 years ago CKD stage III 2 Type 2 diabetes, no insulin Labs reviewed from 04/24/2025 and acceptable for procedure, creatinine 1.3 at that time. Appears to be baseline Echo 2023 showing EF of 60% EKG sinus bradycardia with first-degree AV block Plan for general anesthesia with LMA Medications/Allergies Home Medications ?Medication ?Instructions ?Recorded ?Confirmed ?Last Taken ?Type aspirin 81 mg tablet,delayed 81 mg PO DAILY 11/27/23 05/22/25 05/18/25 History release atorvastatin 80 mg tablet 80 mg PO DAILY circulation #90 tabs 10/31/24 05/22/25 05/22/25 Rx clopidogrel 75 mg tablet 75 mg PO DAILY circulation #30 tabs 10/31/24 05/22/25 05/18/25 Rx metformin 500 mg tablet 500 mg PO BID diabetes #60 tabs 10/31/24 05/22/25 05/22/25 Rx tamsulosin 0.4 mg capsule 0.4 mg PO DAILY prostate #90 caps 10/31/24 05/22/25 05/22/25 Rx clonazepam 0.25 mg disintegrating 0.25 mg PO BID 30 days #60 tabs 02/20/25 05/22/25 05/22/25 Rx tablet finasteride 5 mg tablet 5 mg PO DAILY #30 tabs 04/06/25 05/22/25 05/22/25 Rx gabapentin 400 mg capsule 400 mg PO TID PRN chronic pain 05/22/25 05/22/25 Unknown History hydrocodone 5 mg-acetaminophen 325 1 - 2 tab PO .Q4-6H PRN Moderate 05/22/25 05/22/25 Unknown History mg tablet Pain (Scale Score 5-6) metoprolol succinate 25 mg 25 mg PO DAILY 05/22/25 05/23/25 05/23/25 04:00 History tablet,extended release 24 hr Allergies Allergy/AdvReac Type Severity Reaction Status Date / Time amantadine Allergy Intermediate ADR-Itching Verified 05/22/25 14:30 Penicillins Allergy ADR-Gastrointestinal Verified 05/22/25 14:30 Upset tramadol Allergy itching Verified 05/22/25 14:30 [facility] Anesthesia Medical History Bilateral carpal tunnel syndrome Insomnia Essential tremor Hypertension associated with diabetes Osteophyte, left shoulder CKD (chronic kidney disease) stage 2, GFR 60-89 ml/min Coronary artery disease NSTEMI ~10/06/2023, CABG 11/11/2023 Hyperlipidemia Benign prostatic hyperplasia Peripheral neuropathy History of carotid artery disease Type 2 diabetes mellitus Chronic kidney disease History of multiple strokes Surgical History S/P CABG (coronary artery bypass graft) H/O carotid endarterectomy H/O bilateral cataract extraction History of appendectomy Family History Father Stroke Mother Stroke Brother Cancer Lungs Lung disease Other Diabetes Denies family history of CAD (coronary artery disease) Clotting disorder Dementia Hyperlipidemia Psychiatric illness Chronic kidney disease (CKD) Suicide Anesthesia complication Bleeding disorder Hypertension Social History Smoking and tobacco/nicotine status: never used tobacco/nicotine Alcohol intake: never Data Anesthesia Cardiac Studies: Echocardiogram 08/23/24 Echocardiogram Ultrasound 10/07/23 Cardiac Event Monitor 06/20/24
[2025-05-23] MEDS: acetaminophen 1,000 MG/100 ML PIGGYBACK 400 MG IV (06:26)
--- NOTE | 2025-05-23 06:59 | P.HPUD_ITS ---
Surgery/Procedure H&P Update DATE OF PROCEDURE: May 23, 2025 DATE H&P PERFORMED: 05/22/25 H&P UPDATE INFORMATION: I have reviewed H&P completed within last 30 days, I have examined patient prior to procedure, No changes to prior documentation, H&P is in [facility] EMR on date indicated and Risks and benefits of the procedure reviewed PREOP DIAGNOSIS: Carpal tunnel syndrome PLANNED PROCEDURE: Operation Date: 05/23/25 07:00 Proposed Procedures p Carpal Tunnel Release(Left) - Angela Shaikh MD s Ulna Nerve Decompression(Left) - Angela Shaikh MD Related Problem List Diagnoses 1. Ulnar neuropathy of left upper extremity: Qualifiers: Laterality: left Qualified Code(s): G56.22 - Lesion of ulnar nerve, left upper limb 2. Left median nerve neuropathy: Qualifiers: Laterality: left 3. Bilateral carpal tunnel syndrome:
[2025-05-23] MEDS: ceFAZolin 2,000 mg SDV 2000 MG IVP (07:10)
[2025-05-23] MEDS: ceFAZolin 1,000 mg SDV 1000 MG IRRIGATION (07:32)
[2025-05-23] MEDS: BUPivacaine 0.5% INJ 30 mL XX (07:34)
--- NOTE | 2025-05-23 08:59 | PM.OP ---
Operative Report Date of procedure: May 23, 2025 Pre-op diagnosis: Left carpal tunnel syndrome Left cubital tunnel syndrome Post-op diagnosis: Left carpal tunnel syndrome Left cubital tunnel syndrome Post-op findings: Significant compression across the median nerve within the carpal canal. Compression at the cubital tunnel. Procedure done: Left carpal tunnel release Left cubital tunnel release Implants: None Specimens removed/disposition: None Pathology: None Surgeon: Angela Shaikh MD Extension Clerk: Elham Shankar, nurse practitioner, who services were required for retraction, positioning, exposure, and closure. Anesthesia: General (Per LMA, ASA 3) Estimated blood loss (mL): 5 Tourniquet time (min): 24 (At 250 mmHg) IV fluids (mL): 500 Urine output (mL): 0 (No Demarco) Complications: None Findings: Significant compression across carpal canal and across the ulnar nerve. Condition: stable Disposition: PACU (Then return to same-day surgery for discharge to home) Brief History: This 80-year-old patient presented to the clinic complaining of severe bilateral upper extremity pain. He had nerve conduction studies prior to being seen in the clinic which demonstrated motor and sensory axonal median neuropathy bilaterally as well as ulnar nerve bilaterally. He also had bilateral radial sensory axonal neuropathy. The study was felt to be consistent with bilateral carpal tunnel syndrome and compression of the ulnar nerve at the elbow. Patient underwent physical therapy with stretches as well as bracing anti-inflammatories and injections. He failed with this. The patient and family stated that he was having significant issues secondary to pain in the upper extremity, and therefore, after discussion in the office, they wish to proceed with left carpal tunnel release as well as ulnar nerve release. Risks and complications were discussed with the patient and family. Consents were signed and questions were answered. Procedure: The patient was brought to the operating theater. The patient had a general anesthesia per LMA, ASA 3. Sterile tourniquet was placed and was elevated after exsanguination and a surgical pause. The tourniquet was elevated to 250 mmHg for a total tourniquet time of 24 minutes. The patient was also given Ancef 2 g preoperatively. The arm was then prepped and draped with DuraPrep in usual fashion with the arm draped free. A surgical pause was performed. At the time, the surgical pause, we confirmed the site and side of surgery. We also confirmed the patient's identity, appropriate and timely administration of preoperative antibiotics and preoperative surgical markings. An incision was then made along the thenar crease. The incision crossed the wrist joint in a curvilinear fashion. Dissection continued through skin and soft tissues using a scalpel. The palmaris longus was identified along with the transverse carpal ligament. Each of these was released carefully to avoid injury to the median nerve. We were able to dissect gently into the carpal canal which was noted to be quite tight with significant compression across the median nerve. The nerve was visualized and was an hourglass shape. After release, the canal was subsequently palpated to assure there was no bony encroachment upon the canal. The canal was then palpated distally and proximally to assure that my small finger was passed easily without impingement. Finding this to be so, attention was directed to closure. The wound was irrigated with ropivacaine plain. It was then closed with 3-0 nylon in an interrupted mattress fashion. Sterile dressing was placed consisting of Dermabond and OpSite. Tourniquet was released after carpal tunnel release was completed. Attention was then directed to the elbow. When the patient was seen in the preoperative holding area, landmarks were marked. Incision was made slightly posterior to the ulnar nerve to protect it during the dissection. The incision was made over approximately a 3 to 4 inch area centered over the area between the medial epicondyle and the olecranon. The dissection was continued through skin and soft tissues carefully. We also incised the flexor aponeurosis over the ulnar nerve taking care to isolate the ulnar nerve and avoid injury to it. The aponeurotic band over the nerve was divided and the nerve was traced distally between the two heads of the flexor carpi ulnaris muscle. Care was taken to protect neurovascular structures as well as any branches of the nerve. The fasciotomy of the flexor carpi ulnaris was accomplished to a point where I could pass my finger along the nerve and not feel any area which compressed my small finger. The ulnar nerve was left lying in its bed and it was also evaluated proximally to assure there were no further bands of compression. Gently I was able to extend the release proximally as well to assure that once again I could pass a small finger without any obvious areas which compressed across the ulnar nerve. In this fashion, we had completed the release of the entire cubital tunnel without injury to the nerve. Hemostasis was obtained. The nerve was noted to be swollen consistent with compression in this area. Once we had completely released proximally and distally and were able to palpate and directly visualize the nerve, attention was directed to closure. We then passively extended and flexed the elbow to assure that the nerve remained in its cubital area. Subluxation of the nerve did not occur and therefore attention was directed to closure. Subcutaneous tissues were closed with 3-0 Monocryl, and the skin was closed with 4-0 Monocryl subcuticularly. This was followed by Dermabond and OpSite. After Dermabond had been placed over both wounds as well as OpSite, this was followed by fluffed fluffs within the hand as well as a large soft dressing with sterile soft roll at the elbow. Both dressings were wrapped into place with an Darian wrap. An elbow resting night splint was placed. Tourniquet was released after 24 minutes at the end of the carpal tunnel release. There were no complications and no specimens. The patient tolerated the procedure well. Plan is that the patient will be discharged to home. In the Recovery Room, the patient was neurologically intact. There were no complications. There were no specimens. The procedure was well tolerated. Patient will be discharged home to follow-up with me in the office. Related Problem List Diagnoses 1. Left median nerve neuropathy: 2. Ulnar neuropathy: 3. Bilateral carpal tunnel syndrome:
[2025-05-23] MEDS: HYDROcodone-acetaminophen 5-325 mg Tablet 1 TAB PO (10:10)
--- NOTE | 2025-05-23 10:20 | ANE.PACU2 ---
Inpatient post-anesthesia follow up: Airway intact: Yes Vital signs: Temperature 97.4 F Pulse Rate 50 Respiratory Rate 18 Blood Pressure 135/81 Pulse Oximetry 97 Oxygen Delivery Me thod Room Air Oxygen Flow Rate Fraction of Inspir ed Oxygen Hydration adequate: Yes Nausea and vomiting: No Pain level: 1 Mental status: Baseline
== END | disposition home or self-care (01) ==
PROVIDERS: Visit Provider Specialist
PROC: (CPT 64721; principal; 2025-05-23 07:00)
PROC: (CPT 64718; 2025-05-23 07:00)
DX: G56.02 Carpal tunnel syndrome, left upper limb (principal); G56.22 Lesion of ulnar nerve, left upper limb; Z95.1 Presence of aortocoronary bypass graft; I12.9 Hypertensive chronic kidney disease with stage 1 through stage 4 chronic kidney disease, or unspecified chronic kidney disease; E11.22 Type 2 diabetes mellitus with diabetic chronic kidney disease; N18.30 Chronic kidney disease, stage 3 unspecified; R00.1 Bradycardia, unspecified; Z79.82 Long term (current) use of aspirin; Z79.84 Long term (current) use of oral hypoglycemic drugs; Z86.73 Personal history of transient ischemic attack (TIA), and cerebral infarction without residual deficits; I25.2 Old myocardial infarction
CPT/HCPCS: 64718; 64721; 36416; 82962; J0131; J0690; J2704; J3010; J3490; J7030; J9999

== ENCOUNTER → 2025-06-05 14:43 | Outpatient (BNVA) | payer MEDICARE, SELFPAY | DX: E11.59 Type 2 diabetes mellitus with other circulatory complications (principal); I15.2 Hypertension secondary to endocrine disorders | CPT/HCPCS: 83036 ==

== ENCOUNTER → 2025-06-22 10:48 | Outpatient (BNVA) | payer MEDICARE, MEDICAID, SELFPAY | PROVIDERS: Visit Provider Orthopaedic Surgery | DX: Z01.818 Encounter for other preprocedural examination (principal); M48.062 Spinal stenosis, lumbar region with neurogenic claudication; T84.84XA Pain due to internal orthopedic prosthetic devices, implants and grafts, initial encounter; X58.XXXA Exposure to other specified factors, initial encounter | CPT/HCPCS: 36415; 80053; 81001; 83036; 85025; 87077; 87086; 87186; 99214 ==

== ENCOUNTER → 2025-06-26 10:39 | Outpatient (BNVA) | payer MEDICARE, MEDICAID, SELFPAY | PROVIDERS: Visit Provider Nurse Practitioner | DX: Z98.890 Other specified postprocedural states (principal) | CPT/HCPCS: 99213 ==

== ENCOUNTER 2025-07-03 16:21 | Inpatient (IN) | payer MEDICARE, MEDICAID, SELFPAY ==
[2025-07-03] VITALS (13 sets, daily range): BP systolic 132–164; BP diastolic 58–88; PULSE 58–71; RESP 11–23; TEMP 36.2–36.4; O2SAT 92–98; BMI 28.0
--- NOTE | 2025-07-03 14:35 | W.PM.OPSUD ---
Surgery/Procedure H&P Update DATE OF PROCEDURE: July 03, 2025 DATE H&P PERFORMED: 06/22/25 H&P UPDATE INFORMATION: I have reviewed H&P completed within last 30 days, I have examined patient prior to procedure and No changes to prior documentation PREOP DIAGNOSIS: Painful orthopedic hardware in lumbar spine PLANNED PROCEDURE: Operation Date: 07/03/25 13:50 Proposed Procedures p Hardware Removal Back(Not Applicable) - Gomez Britt DO
--- NOTE | 2025-07-03 14:49 | ANES.PREANE2 ---
Pre-Anesthetic Assessment Height/Weight: Height 5 ft 9 in Weight 190 lb Temp Pulse Resp BP Pulse Ox O2 Del Method 97.5 F L 60 17 155/88 98 Room Air 07/03/25 12:33 07/03/25 12:33 07/03/25 12:33 07/03/25 12:33 07/03/25 12:33 07/03/25 12:37 Preop Diagnosis: Painful orthopedic hardware in lumbar spine Operation Date: 07/03/25 13:50 Proposed Procedures p Hardware Removal Back(Not Applicable) - Gomez Britt, DO Was Beta Ace taken within 24 hours: Yes Was Clonidine taken within 24 hours: N/A Last intake: Intake Last Liquid Date 07/02/25 Last Liquid Time 23:00 Last Solid Date 07/02/25 Last Solid Time 15:00 Social No alcohol and No tobacco Exam alert, oriented x 3, clear to auscultation bilaterally and regular rate & rhythm Airway Submandibular: within normal limits Cervical ROM: within normal limits Mallampati: Class II Comments: Comments: edentulous Anesthetic Plan ASA status: 3 Anesthesia: General Other: No prior issues with anesthesia NPO since yesterday evening History of hypertension on metoprolol. Preop BP 170/83 S/p CABG 2 years ago CKD stage III 2 Type 2 diabetes, no insulin Labs reviewed from06/22/2025 and acceptable for procedure, creatinine 1.3 at that time. Appears to be baseline Echo 2023 showing EF of 60% EKG sinus bradycardia with first-degree AV block Plan for GETA Medications/Allergies Home Medications ?Medication ?Instructions ?Recorded ?Confirmed ?Last Taken ?Type aspirin 81 mg tablet,delayed 81 mg PO DAILY 11/27/23 07/03/25 06/27/25 History release atorvastatin 80 mg tablet 80 mg PO DAILY circulation #90 tabs 10/31/24 06/30/25 06/29/25 Rx metformin 500 mg tablet 500 mg PO BID diabetes #60 tabs 10/31/24 06/30/25 07/02/25 Rx tamsulosin 0.4 mg capsule 0.4 mg PO DAILY prostate #90 caps 10/31/24 06/30/25 07/02/25 Rx clonazepam 0.25 mg disintegrating 0.25 mg PO BID 30 days #60 tabs 02/20/25 06/30/25 06/29/25 Rx tablet hydrocodone 5 mg-acetaminophen 325 1 - 2 tab PO .Q4-6H PRN Moderate 05/22/25 06/30/25 07/03/25 History mg tablet Pain (Scale Score 5-6) clopidogrel 75 mg tablet 75 mg PO DAILY circulation #90 tabs 06/05/25 07/03/25 06/27/25 Rx gabapentin 400 mg capsule 400 mg PO TID PRN chronic pain 06/05/25 06/30/25 06/29/25 Rx #270 caps metoprolol succinate 25 mg 25 mg PO DAILY #90 tabs 06/05/25 06/30/25 07/02/25 Rx tablet,extended release 24 hr diclofenac sodium 1 % topical gel 2 g topical QID #100 grams 06/26/25 06/30/25 Unknown Rx finasteride 5 mg tablet 5 mg PO DAILY #30 tabs 06/30/25 06/30/25 06/29/25 Rx Allergies Allergy/AdvReac Type Severity Reaction Status Date / Time amantadine Allergy Intermediate ADR-Itching Verified 06/30/25 08:30 Penicillins Allergy ADR-Gastrointestinal Verified 06/30/25 08:30 Upset tramadol Allergy itching Verified 06/30/25 08:30 Current Medications Generic Name Dose Route Start Last Admin Trade Name Freq PRN Reason Stop Dose Admin Sodium Chloride 1,000 mls @ 30 mls/hr 07/03/25 12:15 07/03/25 12:50 Sodium Chloride 0.9% IV 07/04/25 12:14 30 mls/hr .Q24H FRANCISCO Administration PFSH Anesthesia Medical History Bilateral carpal tunnel syndrome Insomnia Essential tremor Hypertension associated with diabetes Osteophyte, left shoulder CKD (chronic kidney disease) stage 2, GFR 60-89 ml/min Coronary artery disease NSTEMI ~10/06/2023, CABG 11/11/2023 Mixed hyperlipidemia Benign prostatic hyperplasia without lower urinary tract symptoms Peripheral neuropathy History of carotid artery disease Type 2 diabetes mellitus with other circulatory complication, without long-term current use of insulin Chronic kidney disease History of multiple strokes Surgical History Status post decompression of ulnar nerve Date of procedure: May 23, 2025 Preop diagnosis: Left cubital tunnel syndrome Procedure done: Left cubital tunnel release. Surgeon: Dr. Angela Shaikh MD Status post carpal tunnel release Date of procedure: May 23, 2025 Preop diagnosis: Left carpal tunnel syndrome Procedure done: Left carpal tunnel release. Surgeon: Dr. Angela Shaikh MD S/P CABG (coronary artery bypass graft) H/O carotid endarterectomy H/O bilateral cataract extraction History of appendectomy Family History Father Stroke Mother Stroke Brother Cancer Lungs Lung disease Other Diabetes Denies family history of CAD (coronary artery disease) Clotting disorder Dementia Hyperlipidemia Psychiatric illness Chronic kidney disease (CKD) Suicide Anesthesia complication Bleeding disorder Hypertension Social History Smoking and tobacco/nicotine status: never used tobacco/nicotine Alcohol intake: never Data Anesthesia Cardiac Studies: Echocardiogram 08/23/24 Echocardiogram Ultrasound 10/07/23 Cardiac Event Monitor 06/20/24
[2025-07-03] MEDS: lidocaine-epi 1% 20 mL INJ INJECTION (15:38)
--- NOTE | 2025-07-03 16:26 | XR_ITS ---
WS: [id number] Exam: XR lumbar spine 1V [id number] Date/Time of Exam: 07/03/2025 4:26 PM Reason For Exam: or pic, hardware removal AP C arm images of the lumbar spine are submitted. Images are obtained for intraoperative purposes.
--- NOTE | 2025-07-03 16:26 | PM.OP ---
Operative Report Date of procedure: July 03, 2025 Pre-op diagnosis: Painful orthopedic hardware in lumbar spine Post-op diagnosis: same Procedure done: Removed deep hardware from lumbar spine screws removed from L2-S1 Surgeon: Gomez Britt DO Estimated blood loss (mL): 20 Procedure: Removed deep hardware from lumbar spine screws removed from L2-S1 Patient brought the operative suite after undergoing anesthesia was placed in the prone position. All areas impingement were well-padded. Patient's prepped and draped normal sterile fashion. Skin incisions made over the midline. Dissected out over the fascia Wiltsie approach was made both on the right and left side. Is dissected down through the muscle. The L2-S1 screws were identified. The screw caps were removed the jocelyn was removed and then the each individual screw was removed. Wound was irrigated and Surgiflo was placed in a screw. And then the fascia was closed with 0 Vicryl this process was also repeated on the left side. The screw caps removed jocelyn and screws. Again irrigated surgical was placed in the screw holes. The fascia was closed. And then 0 Vicryl 2-0 Vicryl and Monocryl suture used to close the wound work. Sterile dressings were applied and patient was transferred to the PACU in stable condition.
[2025-07-03] MEDS: fentaNYL 50 mcg/mL INJ 2mL IVP (17:16)
[2025-07-03] MEDS: HYDROcodone-acetaminophen 10-325 mg Tablet 1 TAB PO (17:54)
--- NOTE | 2025-07-03 18:10 | ANE.PACU2 ---
Inpatient post-anesthesia follow up: Airway intact: Yes Vital signs: Temperature 97.2 F Pulse Rate 58 Respiratory Rate 17 Blood Pressure 161/65 Pulse Oximetry 92 Oxygen Delivery Me thod Room Air Oxygen Flow Rate Fraction of Inspir ed Oxygen Hydration adequate: Yes Nausea and vomiting: No Pain level: 1 Mental status: Baseline
== END 2025-07-03 18:18 | disposition home or self-care (01) | DRG 497 ==
LOC: OR 17:28 → MEDSURG 07-04 06:09
PROVIDERS: Admitting Provider Orthopaedic Surgery; Visit Provider Orthopaedic Surgery
PROC: 0QP004Z Removal of Internal Fixation Device from Lumbar Vertebra, Open Approach (ICD-10-PCS; principal; 2025-07-03 13:30)
DX: T84.84XA Pain due to internal orthopedic prosthetic devices, implants and grafts, initial encounter (principal); Y79.8 Miscellaneous orthopedic devices associated with adverse incidents, not elsewhere classified; M48.062 Spinal stenosis, lumbar region with neurogenic claudication; G47.00 Insomnia, unspecified; G25.0 Essential tremor; E11.22 Type 2 diabetes mellitus with diabetic chronic kidney disease; I12.9 Hypertensive chronic kidney disease with stage 1 through stage 4 chronic kidney disease, or unspecified chronic kidney disease; N18.2 Chronic kidney disease, stage 2 (mild); E11.42 Type 2 diabetes mellitus with diabetic polyneuropathy; E11.59 Type 2 diabetes mellitus with other circulatory complications; E78.2 Mixed hyperlipidemia; N40.0 Benign prostatic hyperplasia without lower urinary tract symptoms; I25.10 Atherosclerotic heart disease of native coronary artery without angina pectoris; Z79.4 Long term (current) use of insulin; Z95.1 Presence of aortocoronary bypass graft; Z86.73 Personal history of transient ischemic attack (TIA), and cerebral infarction without residual deficits
CPT/HCPCS: 36416; 72020; 76000; 82962; J1100; J2405; J2704; J3010; J3373; J3490; J7030; J9999

== ENCOUNTER → 2025-07-13 10:06 | Outpatient (BNVA) | payer MEDICARE, MEDICAID, SELFPAY | PROVIDERS: Visit Provider Orthopaedic Surgery | DX: Z98.890 Other specified postprocedural states (principal) | CPT/HCPCS: 99024 ==

== ENCOUNTER → 2025-08-10 13:17 | Outpatient (BNVA) | payer MEDICARE, MEDICAID, SELFPAY | PROVIDERS: Visit Provider Orthopaedic Surgery | DX: Z98.890 Other specified postprocedural states (principal); Z98.1 Arthrodesis status | CPT/HCPCS: 99024 ==

== ENCOUNTER → 2025-08-21 08:55 | Outpatient (BNVA) | payer MEDICARE, MEDICAID, SELFPAY | PROVIDERS: Visit Provider Nurse Practitioner | DX: R25.1 Tremor, unspecified (principal); R03.0 Elevated blood-pressure reading, without diagnosis of hypertension | CPT/HCPCS: 99212 ==

== ENCOUNTER → 2025-09-21 10:02 | Outpatient (BNVA) | payer MEDICARE, MEDICAID, SELFPAY | PROVIDERS: Visit Provider Orthopaedic Surgery | DX: Z98.890 Other specified postprocedural states (principal) | CPT/HCPCS: 99024 ==

== ENCOUNTER → 2025-09-25 07:15 | Outpatient (BNVA) | payer MEDICARE, MEDICAID, SELFPAY | PROVIDERS: Visit Provider Nurse Practitioner | DX: Z47.89 Encounter for other orthopedic aftercare (principal) | CPT/HCPCS: 99213 ==

== ENCOUNTER → 2025-10-03 13:03 | Outpatient (BNVA) | payer MEDICARE, MEDICAID, SELFPAY | PROVIDERS: Visit Provider Internal Medicine | DX: I25.10 Atherosclerotic heart disease of native coronary artery without angina pectoris (principal); Z95.1 Presence of aortocoronary bypass graft; I12.9 Hypertensive chronic kidney disease with stage 1 through stage 4 chronic kidney disease, or unspecified chronic kidney disease; E78.5 Hyperlipidemia, unspecified; N18.2 Chronic kidney disease, stage 2 (mild); E11.22 Type 2 diabetes mellitus with diabetic chronic kidney disease; Z79.84 Long term (current) use of oral hypoglycemic drugs | CPT/HCPCS: 99213 ==

== ENCOUNTER → 2025-10-31 10:21 | Outpatient (BNVA) | payer MEDICARE, MEDICAID, SELFPAY | PROVIDERS: Visit Provider Orthopaedic Surgery | DX: Z47.89 Encounter for other orthopedic aftercare (principal); Z98.1 Arthrodesis status | CPT/HCPCS: 99213 ==